=== PATIENT | female | born 1950 | race Hispanic/Latino ===

== ENCOUNTER 2018-12-23 16:06 | Observation (INO) | payer OTHER, MEDICARE ==
[~2018-12-23] VITALS: Ht 144.8 cm; Wt 67.2 kg
[~2018-12-23 16:06] MED LIST: GABAPENTIN400 MG PO; HYDROCORTISONE10 MG PO; LEVOTHYROXINE50 MCG PO; MIRTAZAPINE15 MG PO; PANTOPRAZOLE SO40 MG PO; ULTRAM50 MG PO
--- OUTSIDE RECORDS SUMMARY | 2018-12-23 16:09 | XMS REPORT | Continuity of Care Document ---
Author Author [employer] [facility] Address Unknown Phone Unavailable Problems Problem Status Onset Date Classification Date Reported Comments Source ORDERING DR. ZELDA MARINELLI (#[id number] Active 10/31/2018 [facility] Medications Medication Details Route Status Patient Instructions Ordering Provider Order Date Source Allergies, Adverse Reactions, Alerts Substance Category Reaction Severity Reaction type Status Date Reported Comments Source Immunizations Immunization Date Given Site Status Last Updated Comments Source Results Order Name Results Value Reference Range Date Interpretation Comments Source CHEM PANEL eGFR 91 mL/min/1.73m2 11/07/2018 Result Comment: The eGFR is calculated using the CKD-EPI formula. In most young, healthy individuals the eGFR will be >90 mL/min/1.73m2. The eGFR declines with age. An eGFR of 60-89 may be normal in some populations, particularly the elderly, for whom the CKD-EPI formula has not been extensively validated. Use of the eGFR is not recommended in the following populations: Individuals with unstable creatinine concentrations, including patients and those with serious co-morbid conditions. Patients with extremes in muscle mass or diet. The data above are obtained from the National Kidney Disease Education Program (NKDEP) which additionally recommends that when the eGFR is used in patients with extremes of body mass index for purposes of drug dosing, the eGFR should be multiplied by the estimated BMI. [facility] CHEM PANEL POC Creatinine 0.7 mg/dL 0.5 - 1.4 11/07/2018 [facility] Abdomen/Pelvis w/wo IV contrast CT Abdomen/Pelvis w/wo IV contrast CT CT SCAN OF THE ABDOMEN AND PELVIS WITH CONTRAST. HX: Clinical Indication: - R10.9 Unspecified abdominal pain; . Comparison: None Technique: Helical CT images were obtained from the domes the diaphragms to the symphysis pubis following the administration of p.o. contrast and before and after the administration of intravenous contrast. CT imaging performed at this location utilizes radiation dose optimization techniques which include one or more of the following: -Automated exposure control -Adjustment of the mA and/or kV according to patient size -Use of iterative reconstruction technique CT Radiation Dose DLP 930 mGy-cm ABDOMEN AND PELVIS: Mild lingula and lower lobe parenchyma scarring is present may represent a component of pulmonary fibrosis. The heart is normal in size. No pericardial effusion. Postoperative cholecystectomy. Diffuse fatty liver infiltration. The spleen, most diffusely fatty atrophic pancreas, and adrenals are normal in appearance. The kidneys show good, symmetrical enhancement without hydronephrosis. A 1.3 cm posterior interpolar right hemorrhagic cyst is present. Small about 1.0 cm bilateral renal cysts are present. No definite renal, ureteral calculi or hydronephrosis detected. Abundance of stool within the colon. Small fat- containing umbilical hernia is present. Grossly normal appendix. Mild sigmoid descending diverticulosis. The bladder is nondistended. Postoperative hysterectomy. Atherosclerotic calcification abdominal aorta and iliac arteries. Diffuse osteopenia. Mild lumbar spondylosis and facet arthrosis. IMPRESSION: 1. No acute abdominal or pelvic process detected. 2. A 1.3 cm posterior interpolar right hemorrhagic cyst is present. Small about 1.0 cm bilateral renal cysts are present. No definite obstructive uropathy. 3. Diffuse fatty liver infiltration. 4. Postoperative cholecystectomy and hysterectomy. 5. Mild sigmoid descending diverticulosis. SL: [id number] 11/07/2018 - - Read by: Papa Corral MD Dictated Date/time: 11/07/18 18:17 Electronically Signed by: Papa Corral MD 11/07/18 18:23 FINAL REPORT [facility] Vital Signs Vital Sign Value Date Comments Source Encounters Location Location Details Encounter Type Encounter Number Reason For Visit Attending Provider ADM Date DC Date Status Source [facility] Outpatient [id number] Non Physician 11/07/2018 11/08/2018 [facility] Procedures Procedure Code Date Perfomer Comments Source
--- OUTSIDE RECORDS SUMMARY | 2018-12-23 16:09 | XMS REPORT | Summary of Care ---
Author Author [facility] Organization [facility] Address Unknown Phone Unavailable Encounter [facility] Sweta(FIN) [id number] Date(s): 11/07/18 - 11/07/18 [facility] [address] [place] [address]- Discharge Disposition: Home or Self Care Attending Physician: Physician, Non Associated MD Vital Signs No data available for this section Problem List No data available for this section Allergies, Adverse Reactions, Alerts No data available for this section Medications No data available for this section Results CHEM PANEL Most recent to 1 oldest [Reference Range]: eGFR 91 mL/min/1.73m2 1 *NA* (11/07/18 9:14 AM) POC Creatinine 0.7 mg/dL [0.5-1.4 mg/dL] (11/07/18 9:14 AM) 1Result Comment: The eGFR is calculated using the [...] from the National Kidney Disease Education Program ( NKDEP) which additionally recommends that when the eGFR is used in patients with extremes of body mass index for purposes of drug dosing, the eGFR should be mul tiplied by the estimated BMI. Immunizations No data available for this section Procedures No data available for this section Social History No data available for this section Assessment and Plan No data available for this section
--- OUTSIDE RECORDS SUMMARY | 2018-12-23 16:11 | XMS REPORT ---
[facility] Address Unknown Phone Unavailable Care Team Providers Care [employer] Name Role Phone DILLON ALEXANDRA PP Unavailable LUIGI WONG M.D. Unavailable Unavailable ANNA GIRON M.D. Unavailable Unavailable Danielito GALAVIZ Unavailable Unavailable Payers Payer Name Policy Type Policy Number Effective Date Expiration Date Problems This patient has no known problems. Allergies, Adverse Reactions, Alerts Allergy Name Allergy Type Status Severity Reaction(s) Onset Date Inactive Date Treating Clinician Comments hydrocodone DA Active SV 2018-07-09 00:00:00 aspirin DA Active SV 2018-07-09 00:00:00 acetaminophen DA Active SV 2018-07-09 00:00:00 ibuprofen DA Active SV 2018-07-09 00:00:00 chicken derived DA Active U 2018-07-09 00:00:00 ibuprofen DA Active SV 2018-07-07 00:00:00 chicken derived DA Active U 2018-07-03 00:00:00 SEAFOOD DA Active SV 2018-06-24 00:00:00 hydrocodone DA Active SV 2018-06-24 00:00:00 aspirin DA Active SV 2018-06-24 00:00:00 acetaminophen DA Active SV 2018-06-24 00:00:00 ibuprofen DA Active SV 2018-06-24 00:00:00 ibuprofen DA Active U 2018-01-10 00:00:00 prednisone DA Active U 2018-01-06 00:00:00 aspirin DA Active U 2010-07-31 00:00:00 ibuprofen DA Active U 2010-07-31 00:00:00 SEAFOOD DA Active U 2010-07-31 00:00:00 Medications This patient has no known medications. Encounters Start Date/Time End Date/Time Encounter Type Admission Type Attending [facility] Care Department Encounter ID 2018-06-23 02:02:00 Inpatient [facility] [id number] 2018-06-22 12:47:27 Inpatient [facility] [id number] 2018-06-22 02:00:53 Inpatient [facility] [id number] 2018-06-21 13:54:42 Inpatient [facility] [id number] 2018-06-21 09:38:02 Inpatient [facility] [id number] 2018-06-21 02:08:33 Inpatient [facility] [id number] 2018-06-21 00:00:00 Inpatient [facility] [id number] 2018-06-21 00:00:00 Inpatient [facility] [id number] 2018-06-20 16:27:07 Inpatient [facility] [id number] 2018-06-20 02:03:43 Inpatient [facility] [id number] 2018-06-20 00:00:00 Inpatient [facility] [id number] 2018-06-19 07:33:48 Inpatient [facility] [id number] 2018-06-18 19:13:45 Inpatient [facility] [id number] 2018-06-18 15:48:19 Inpatient [facility] [id number] 2018-06-18 08:37:41 [facility] [id number] 2018-06-10 11:03:47 [facility] [id number] 2018-06-10 07:59:35 [facility] [id number] 2018-06-10 02:02:17 Inpatient [facility] [id number] 2018-06-09 19:46:07 [facility] [id number] 2018-06-09 14:41:10 [facility]patient [facility] [id number] 2018-06-09 08:55:33 [facility]patient [facility] [id number] 2018-06-09 02:41:18 Inpatient [facility] [id number] 2018-06-08 13:37:50 [facility]patient [facility] [id number] 2018-06-07 17:57:51 Inpatient [facility] [id number] 2018-06-07 17:01:19 Inpatient [facility] [id number] 2018-06-07 00:02:10 Inpatient [facility] [id number] 2018-06-07 00:00:00 Inpatient [facility] [id number] 2018-06-06 16:08:32 Inpatient [facility] [id number] 2018-06-06 12:25:45 Inpatient [facility] [id number] 2018-06-06 00:05:32 Inpatient [facility] [id number] 2018-06-05 00:05:08 Inpatient [facility] [id number] 2018-06-04 18:43:58 Inpatient [facility] [id number] 2018-06-04 09:07:00 Inpatient [facility] [id number] 2018-06-04 00:00:00 Inpatient [facility] [id number] 2018-06-03 00:00:00 Inpatient [facility] [id number] 2018-04-16 00:00:00 [facility]patient [facility] [id number] 2018-02-18 00:00:00 [facility] [id number] 2018-02-08 00:00:00 [facility]patient [facility] [id number] 2019-05-09 00:00:00 2019-05-09 00:00:00 Outpatient [facility] [id number] 2019-02-13 00:00:00 2019-02-13 00:00:00 Outpatient [facility] [id number] 2019-02-12 00:00:00 2019-02-12 00:00:00 Outpatient [facility] [id number] 2018-12-25 00:00:00 2018-12-25 00:00:00 Outpatient [facility] [id number] 2018-12-18 00:00:00 2018-12-18 00:00:00 Outpatient [facility] [id number] 2018-12-13 00:00:00 2018-12-13 00:00:00 Outpatient [facility] [id number] 2018-12-13 00:00:00 2018-12-13 00:00:00 Outpatient [facility] [id number] 2018-12-12 14:01:36 2018-12-12 14:01:36 Outpatient [facility] [id number] 2018-11-19 00:00:00 2018-11-19 00:00:00 Outpatient [facility] [id number] 2018-11-13 11:23:33 2018-11-13 11:23:33 Outpatient [facility] [id number] 2018-11-11 00:00:00 2018-11-11 00:00:00 Outpatient [facility] [id number] 2018-11-07 08:50:00 2018-11-07 08:50:00 Outpatient [id number] 2018-10-25 13:49:32 2018-10-25 13:49:32 Outpatient [facility] [id number] 2018-10-17 15:19:35 2018-10-17 15:19:35 Outpatient [facility] [id number] 2018-09-13 11:29:36 2018-09-13 11:29:36 Outpatient [facility] [id number] 2018-09-10 10:54:26 2018-09-10 10:54:26 Outpatient [facility] [id number] 2018-07-23 00:00:00 2018-07-23 00:00:00 Outpatient [facility] [id number] 2018-07-23 00:00:00 2018-07-23 00:00:00 Outpatient [facility] [id number] 2018-07-18 00:00:00 2018-07-18 00:00:00 Outpatient [facility] [id number] 2018-07-18 00:00:00 2018-07-18 00:00:00 Outpatient [facility] [id number] 2018-07-18 00:00:00 2018-07-18 00:00:00 Outpatient [facility] [id number] 2018-07-11 00:00:00 2018-07-11 00:00:00 Outpatient [facility] [id number] 2018-07-10 00:00:00 2018-07-10 00:00:00 Outpatient [facility] [id number] 2018-06-26 00:00:00 2018-06-26 00:00:00 Outpatient [facility] [id number] 2018-06-26 00:00:00 2018-06-26 00:00:00 Outpatient [facility] [id number] 2018-06-18 00:00:00 2018-06-18 00:00:00 Emergency [facility] [id number] 2018-06-17 23:55:03 2018-06-17 23:55:03 Emergency [facility] [id number] 2018-06-17 22:41:34 2018-06-17 22:41:34 Emergency [facility] [id number] 2018-06-17 21:18:29 2018-06-17 21:18:29 Emergency [facility] [id number] 2018-06-17 19:13:01 2018-06-17 19:13:01 Inpatient [facility] [id number] 2018-06-14 00:00:00 2018-06-14 00:00:00 Outpatient [facility] [id number] 2018-06-12 11:24:28 2018-06-12 11:24:28 Outpatient [facility] [id number] 2018-06-12 00:00:00 2018-06-12 00:00:00 Outpatient [facility] [id number] 2018-06-12 00:00:00 2018-06-12 00:00:00 Outpatient [facility] [id number] 2018-06-03 08:32:44 2018-06-03 08:32:44 Outpatient [facility] [id number] 2018-05-23 09:57:46 2018-05-23 09:57:46 Outpatient [facility] [id number] 2018-05-23 00:00:00 2018-05-23 00:00:00 Outpatient [facility] [id number] 2018-05-16 14:39:51 2018-05-16 14:39:51 Outpatient [facility] [id number] 2018-05-06 00:00:00 2018-05-06 00:00:00 Outpatient [facility] [id number] 2018-05-06 00:00:00 2018-05-06 00:00:00 Outpatient [facility] [id number] 2018-05-02 13:09:04 2018-05-02 13:09:04 Outpatient [facility] [id number] 2018-05-02 11:11:14 2018-05-02 11:11:14 Outpatient [facility] [id number] 2018-05-01 00:00:00 2018-05-01 00:00:00 Outpatient [facility] [id number] 2018-04-30 07:54:36 2018-04-30 07:54:36 Outpatient [facility] [id number] 2018-04-30 07:54:33 2018-04-30 07:54:33 Outpatient [facility] [id number] 2018-04-29 13:00:12 2018-04-29 13:00:12 Outpatient [facility] [id number] 2018-04-29 08:19:49 2018-04-29 08:19:49 Outpatient [facility] [id number] 2018-04-29 00:00:00 2018-04-29 00:00:00 Outpatient [facility] [id number] 2018-04-26 14:18:20 2018-04-26 14:18:20 Outpatient [facility] [id number] 2018-04-25 07:50:04 2018-04-25 07:50:04 Outpatient [facility] [id number] 2018-04-24 07:20:05 2018-04-24 07:20:05 Outpatient [facility] [id number] 2018-04-03 16:49:00 2018-04-03 16:49:00 Outpatient [facility] [id number] 2018-04-03 15:45:29 2018-04-03 15:45:29 Outpatient [facility] [id number] 2018-03-29 14:41:44 2018-03-29 14:41:44 Outpatient [facility] [id number] 2018-03-29 08:52:17 2018-03-29 08:52:17 Outpatient [facility] [id number] 2018-03-28 15:37:13 2018-03-28 15:37:13 Outpatient [facility] [id number] 2018-03-28 14:30:13 2018-03-28 14:30:13 Outpatient [facility] [id number] 2018-03-28 00:00:00 2018-03-28 00:00:00 Outpatient [facility] [id number] 2018-03-18 15:50:50 2018-03-18 15:50:50 Outpatient [facility] [id number] 2018-03-11 00:00:00 2018-03-11 00:00:00 Outpatient [facility] [id number] 2018-03-08 13:10:49 2018-03-08 13:10:49 Outpatient [facility] [id number] 2018-03-08 11:21:30 2018-03-08 11:21:30 Outpatient [facility] [id number] 2018-03-08 00:00:00 2018-03-08 00:00:00 Outpatient [facility] [id number] 2018-03-06 13:50:43 2018-03-06 13:50:43 Outpatient [facility] [id number] 2018-02-14 15:33:00 2018-02-14 15:33:00 Outpatient [facility] [id number] 2018-02-08 00:00:00 2018-02-08 00:00:00 Outpatient [facility] [id number] 2018-02-07 08:08:41 2018-02-07 08:08:41 Outpatient [facility] [id number] 2018-02-07 00:00:00 2018-02-07 00:00:00 Outpatient [facility] [id number] 2018-01-30 11:24:28 2018-01-30 11:24:28 Outpatient [facility] [id number] 2018-01-21 09:38:22 2018-01-21 09:38:22 Outpatient [facility] [id number] 2018-01-16 10:34:54 2018-01-16 10:34:54 Outpatient [facility] [id number] 2017-12-20 12:18:36 2017-12-20 12:18:36 Outpatient [facility] [id number] 2017-12-19 12:58:51 2017-12-19 12:58:51 Outpatient [facility] [id number] 2017-12-18 13:00:59 2017-12-18 13:00:59 Outpatient [facility] [id number] 2017-11-29 13:47:03 2017-11-29 13:47:03 Outpatient [facility] [id number] 2017-11-28 15:40:02 2017-11-28 15:40:02 Outpatient [facility] [id number] 2017-11-28 15:16:48 2017-11-28 15:16:48 Outpatient [facility] [id number] 2017-11-26 10:58:33 2017-11-26 10:58:33 Outpatient [facility] [id number] 2017-11-16 12:34:53 2017-11-16 12:34:53 Outpatient [facility] [id number] 2017-11-08 15:32:01 2017-11-08 15:32:01 Outpatient [facility] [id number] 2017-11-02 10:51:34 2017-11-02 10:51:34 Outpatient [facility] [id number] 2017-10-30 12:09:19 2017-10-30 12:09:19 Outpatient [facility] [id number] 2017-10-30 11:41:54 2017-10-30 11:41:54 Outpatient [facility] [id number] 2017-10-30 09:47:21 2017-10-30 09:47:21 Outpatient [facility] [id number] 2017-10-23 11:05:48 2017-10-23 11:05:48 Outpatient [facility] [id number] 2017-10-18 11:02:41 2017-10-18 11:02:41 Outpatient [facility] [id number] 2017-10-18 08:58:31 2017-10-18 08:58:31 Outpatient [facility] [id number] 2017-10-15 11:38:23 2017-10-15 11:38:23 Outpatient [facility] [id number] 2017-10-15 08:30:21 2017-10-15 08:30:21 Outpatient [facility] [id number] 2017-09-20 16:18:51 2017-09-20 16:18:51 Outpatient [facility] [id number] 2017-09-14 12:39:24 2017-09-14 12:39:24 Outpatient [facility] [id number] 2017-09-13 00:00:00 2017-09-13 00:00:00 Outpatient [facility] [id number] 2017-09-12 14:55:30 2017-09-12 14:55:30 Outpatient [facility] [id number] 2017-09-07 11:25:27 2017-09-07 11:25:27 Outpatient [facility] [id number] 2017-09-07 00:00:00 2017-09-07 00:00:00 Outpatient [facility] [id number] 2017-09-04 00:00:00 2017-09-04 00:00:00 Outpatient [facility] [id number] 2017-09-03 08:02:16 2017-09-03 08:02:16 Outpatient [facility] [id number] 2017-08-24 14:27:57 2017-08-24 14:27:57 Outpatient [facility] [id number] 2017-08-15 16:22:10 2017-08-15 16:22:10 Outpatient [facility] [id number] 2017-08-15 14:50:40 2017-08-15 14:50:40 Outpatient [facility] [id number] 2017-08-02 00:00:00 2017-08-02 00:00:00 Outpatient [facility] [id number] 2017-07-23 09:41:20 2017-07-23 09:41:20 Outpatient [facility] [id number] 2017-07-23 07:53:45 2017-07-23 07:53:45 Outpatient [facility] [id number] 2017-07-10 12:17:47 2017-07-10 12:17:47 Outpatient [facility] [id number] 2017-07-03 13:33:36 2017-07-03 13:33:36 Outpatient [facility] [id number] 2017-06-26 00:00:00 2017-06-26 00:00:00 Outpatient [facility] [id number] 2017-06-18 00:00:00 2017-06-18 00:00:00 Outpatient [facility] [id number] 2017-06-12 13:53:44 2017-06-12 13:53:44 Outpatient [facility] [id number] 2017-06-12 00:00:00 2017-06-12 00:00:00 Outpatient [facility] [id number] 2017-06-08 14:06:17 2017-06-08 14:06:17 Outpatient [facility] [id number] 2017-06-08 12:56:41 2017-06-08 12:56:41 Outpatient [facility] [id number] 2017-05-16 15:03:56 2017-05-16 15:03:56 Outpatient [facility] [id number] 2017-05-16 12:00:22 2017-05-16 12:00:22 Outpatient [facility] [id number] 2017-04-04 00:00:00 2017-04-04 00:00:00 Outpatient [facility] [id number] 2017-03-26 00:00:00 2017-03-26 00:00:00 Outpatient [facility] [id number] 2017-03-15 00:00:00 2017-03-15 00:00:00 Outpatient [facility] [id number] 2017-03-01 00:00:00 2017-03-01 00:00:00 Outpatient [facility] [id number] 2017-03-01 00:00:00 2017-03-01 00:00:00 Outpatient [facility] [id number] 2017-02-14 13:52:47 2017-02-14 13:52:47 Outpatient [facility] [id number] 2017-01-31 09:03:10 2017-01-31 09:03:10 Outpatient [facility] [id number] 2017-01-30 14:56:50 2017-01-30 14:56:50 Outpatient [facility] [id number] 2017-01-30 00:00:00 2017-01-30 00:00:00 Outpatient [facility] [id number] 2017-01-23 15:24:40 2017-01-23 15:24:40 Outpatient [facility] [id number] 2017-01-23 15:24:33 2017-01-23 15:24:33 Outpatient [facility] [id number] 2017-01-22 11:32:04 2017-01-22 11:32:04 Outpatient [facility] [id number] 2017-01-22 09:46:27 2017-01-22 09:46:27 Outpatient [facility] [id number] 2017-01-10 07:17:14 2017-01-10 07:17:14 Outpatient [facility] [id number] 2017-01-09 13:20:07 2017-01-09 13:20:07 Outpatient [facility] [id number] Results Test Description Test Time Test Comments Text Results Atomic Results Result Comments - CT CHEST W/O CONTRAST 2018-10-22 13:43:00 Name: LASHON SANON [facility] : 1950 Age/S: 68 / F [address] Unit #: [id number] Loc: Fernando DONNA [address] Phys: Reed Morel MD Acct: [id number] Dis Date: Status: REG CLI PHONE #: [phone] Exam Date: 10/22/2018 1241 FAX #: [phone] Reason: INTERSTITIAL PULMONARY DISEASE EXAMS: CPT CODE: [id number] CT CHEST W/O CONTRAST 46114 HISTORY: Interstitial pulmonary disease. COMPARISON: CT chest from July 12, 2018. CT chest without contrast: Automated exposure control. Subpleural interstitial scarring bilaterally in the upper and lower lobes. Reticular pattern in subpleural location. Thickening of the intra and the interlobular septa. Dependent changes. No infiltrates, effusion or congestion. No bronchiectasis, honeycombing or fibrosis. Calcified granuloma in the medial right base. No endobronchial lesions. No parenchymal mass is noted. Large pleural based calcification noted in the posterior right apex as well and may represent pleural plaque which would n't suggest prior asbestos exposure. No asbestosis. Unremarkable unopacified aorta and pulmonary arteries. The thyroid glands are unremarkable. Esophageal wall is not thickened. No pathologic adenopathy. Cardiac silhouette is normal without pericardial effusion. Visualized upper abdomen demonstrates hyperdense lesion within the posterior medial right kidney in the interpolar region measuring 1.3 cm with average Hounsfield unit measurement of 70 likely hemorrhagic or proteinaceous cyst. The subcutaneous tissues and the musculature are normal in appearance. No lytic or blastic lesions are noted within the bony skeleton. IMPRESSION: Carmina pleural scarring in both upper and the lower lobes bilaterally with thickening of the intra-and interlobular septa. No significant honeycombing, fibrosis or bronchiectasis. These findings may suggest UIP or NSIP. Calcification is pleural-based in the posterior superior right upper lobe may represent pleural plaque and which may suggest asbestos exposure although no evidence for asbestosis. No pathologic adenopathy. at 1343 Reported and signed by: Claude Padilla M.D. PAGE 1 Signed Report (CONTINUED) Name: LASHON SANON [facility] : 1950 Age/S: 68 / F [address] [facility] Unit #: [id number] Loc: [place] [address] Phys: Reed Morel MD Acct: [id number] Dis Date: Status: REG CLI PHONE #: [phone] Exam Date: 10/22/2018 1241 FAX #: [phone] Reason: INTERSTITIAL PULMONARY DISEASE EXAMS: CPT CODE: [id number] CT CHEST W/O CONTRAST 51109 <Continued> CC: Reed Morel MD; Petey Galvan MD Technologist:Lay Floyd RT(R),CT CTDI: DLP: Trnscb Date/Time: 10/22/2018 (1753) t.SDR.TH4 Orig Print D/T: S: 10/22/2018 (2058) CTDI: DLP: PAGE 2 Signed Report XR CHEST 1 VIEW 2017-07-02 11:15:29 XR CHEST 1 VIEWLOCATION: [id number]: chest radiograph 06/29/2017INDICATION: chfDISCUSSION:Median sternotomy wires and cardiac valve prosthesis are present.Fractured spinal hardware is present.Pulmonary edema has decreased.Mild central pulmonary vascular congestion remains.The cardiac silhouette is prominent, but stable.Aortic calcifications are present. Osseous structures are stable.IMPRESSION:Decreased pulmonary edema. Mild central pulmonary vascular congestionremains. POC Glucose, Blood 2017-07-02 07:48:00 POC Glucose (test code=POCGLUC) 100 mg/dL 70-115 If you consider your patient critically ill, the Genoveva Accu-Chek InformII metershould not be used for Glucose determinations.Draw a venous Glucose and send to the Main Lab for Analysis. Prothrombin [id number] 06:13:00* Test Item Value Reference Range Comments PT (test code=PT) 27.40 seconds 9.78-13.35 VERIFIED BY REPEAT TESTINGREAD BACK LAB VALUESPT DELTA CHECKED WITH Gareth BRAN /GORDY @0609 ON 07/02/2017 BY EDPATIENT ON DCTYRONE PER RN INR (test code=INR) 2.42 Ratio 0.6-1.2 [id number] 06:11:00* Test Item Value Reference Range Comments Phosphorus (test code=PO4) 3.8 mg/dL 2.70-4.50 Magnesium, [id number] 06:11:00* Test Item Value Reference Range Comments Magnesium (test code=MG) 2.1 mg/dL 1.7-2.5 Basic Metabolic [id number] 06:11:00* Test Item Value Reference Range Comments Sodium (test code=NA) 138 mmol/L 135-145 Potassium (test code=K) 3.6 mmol/L 3.5-5.1 Chloride (test code=CL) 98 mmol/L 98-105 Carbon Dioxide (test code=CO2) 32 mmol/L 22-29 Glucose (test code=GLU) 93 mg/dL 70-115 Blood Urea Nitrogen (test code=BUN) 15 mg/dL 8-23 Creatinine (test code=CREAT) 1.2 mg/dL 0.5-0.9 Calcium (test code=CA) 8.5 mg/dL 8.3-10.5 BUN/Creatinine Ratio (test code=BCRATIO) 12.5 Anion Gap (test code=AGAP) 8 mmol/L 7-16 Estimated GFR (test code=GFR) 48 mL/min/1.73m2 eGFR (estimated Glomerular Filtration Rate) is an estimated value,calculated from the patient's serum creatinine using the MDRD equation.It is NOT the patient's actual GFR. The eGFR provides a more clinicallyuseful measure of kidney disease than serum creatinine alone.This calculation takes sex and race into account, if the informationis provided. If the race is not provided, and the patient isAfrican-Bangladeshi, multiply by 1.212. If sex is not provided, and thepatient is female, multiply by 0.742. Results for patients <18 years ofage have not been validated by the MDRD study and should be interpretedwith caution.eGFR Result Interpretation:eGFR > or=60 is in the Normal RangeeGFR < 60 may mean kidney diseaseeGFR < 15 may mean kidney failureRanges recommended by the National Kidney Foundat ion,http://nkdep.nih.gov CBC with [id number] 05:06:00* Test Item Value Reference Range Comments WBC (test code=WBC) 6.9 K/cumm 4.4-10.5 RBC (test code=RBC) 3.30 M/cumm 3.75-5.20 Hemoglobin (test code=HGB) 10.3 gm/dL 12.2-14.8 Hematocrit (test code=HCT) 31.2 % 36.5-44.4 MCV (test code=MCV) 94.6 fL 80-100 MCH (test code=MCH) 31.1 pg 27.0-32.5 MCHC (test code=MCHC) 32.8 g/dL 32.0-37.5 RDW (test code=RDW) 14.6 % 11.5-14.5 Platelet Count (test code=PLTCT) 439 K/cumm 140-440 MPV (test code=MPV) 9.7 fL Diff Method (test code=DIFFM) Auto Neutrophil (test code=NEUT) 67.0 % 36-70 Lymphocyte (test code=LYMPH) 25.3 % 12-44 Monocyte (test code=MONO) 5.6 % 0-11 Eosinophil (test code=EOS) 1.3 % 0-7 Basophil (test code=BASO) 0.8 % 0-2 Neutro Abs (test code=ANEUT) 4.6 K/cumm 1.6-7.4 Lymph Abs (test code=ALYMPH) 1.8 K/cumm 0.5-4.6 [place] Abs (test code=AMONO) 0.4 K/cumm 0.0-1.2 Eos Abs (test code=AEOS) 0.09 K/cumm 0.00-0.74 Baso Abs (test code=ABASO) 0.1 K/cumm 0.00-0.21 CT HEAD OR BRAIN WO [id number] 16:07:54EXAM: CT BRAIN WITHOUT CONTRASTINDICATION: Headache on blood thinnersCOMPARISON: June 26, 2017TECHNIQUE: Routine axial noncontrast CT images of the brain wereobtained.IV contrast: None.DLP: 829 mGy-cmFINDINGS: No intra-axial or extra-axial fluid collections are identified. No acutehemorrhage.There is an evolving ischemic infarct in the left cerebellar hemisphere.No hemorrhagic transformation. The ventricles and sulci are normal insize and shape with no midline shift or mass effect. The basal cisternsare patent. The fourth ventricle are normal.Evolving subgaleal hematoma overlying the right parietal bone measuring2.5 x 1.3 cm. The paranasal sinuses and mastoid air cells are clear. Nocalvarial lesions. Skull base is intact. Orbits and globes areunremarkable.IMPRESSION:1. 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 Nohemorrhagic transformation.2. R esolving subgaleal hematoma overlying the right parietal bone.LOCATION: [id number] [id number] 12:07:43EXAM: ABDOMEN ONE VIEWINDICATION: Evaluate for impactionCOMPARISON: None availableTECHNIQUE: AP view of the abdomen.FINDINGS: The bowel gas pattern is normal. Moderate stool noted within the colon.No pneumoperitoneum is identified. No abnormal calcifications.There are postsurgical changes involving the thoracolumbar spine.IMPRESSION: Moderate stool noted within the colon. No bowel dilatation isidentified.LOCATION: R16 [id number] 07:50:00* Test Item Value Reference Range Comments Phosphorus (test code=PO4) 3.9 mg/dL 2.70-4.50 Basic Metabolic [id number] 07:50:00* Test Item Value Reference Range Comments Sodium (test code=NA) 138 mmol/L 135-145 Potassium (test code=K) 4.0 mmol/L 3.5-5.1 Chloride (test code=CL) 97 mmol/L 98-105 Carbon Dioxide (test code=CO2) 31 mmol/L 22-29 Glucose (test code=GLU) 86 mg/dL 70-115 Blood Urea Nitrogen (test code=BUN) 15 mg/dL 8-23 Creatinine (test code=CREAT) 1.1 mg/dL 0.5-0.9 Calcium (test code=CA) 8.5 mg/dL 8.3-10.5 BUN/Creatinine Ratio (test code=BCRATIO) 13.6 Anion Gap (test code=AGAP) 10 mmol/L 7-16 Estimated GFR (test code=GFR) 53 mL/min/1.73m2 eGFR (estimated Glomerular Filtration Rate) is an estimated value,calculated from the patient's serum creatinine using the MDRD equation.It is NOT the patient's actual GFR. The eGFR provides a more clinicallyuseful measure of kidney disease than serum creatinine alone.This calculation takes sex and race into account, if the informationis provided. If the race is not provided, and the patient isAfrican-Bangladeshi, multiply by 1.212. If sex is not provided, and thepatient is female, multiply by 0.742. Results for patients <18 years ofage have not been validated by the MDRD study and should be interpretedwith caution.eGFR Result Interpretation:eGFR > or=60 is in the Normal RangeeGFR < 60 may mean kidney diseaseeGFR < 15 may mean kidney failureRanges recommended by the National Kidney Foundat ion,http://nkdep.nih.gov Magnesium, [id number] 07:50:00* Test Item Value Reference Range Comments Magnesium (test code=MG) 2.1 mg/dL 1.7-2.5 Prothrombin [id number] 06:41:00* Test Item Value Reference Range Comments PT (test code=PT) 21.30 seconds 9.78-13.35 INR (test code=INR) 1.90 Ratio 0.6-1.2 CBC with [id number] 06:34:00* Test Item Value Reference Range Comments WBC (test code=WBC) 6.2 K/cumm 4.4-10.5 RBC (test code=RBC) 3.39 M/cumm 3.75-5.20 Hemoglobin (test code=HGB) 10.7 gm/dL 12.2-14.8 Hematocrit (test code=HCT) 32.2 % 36.5-44.4 MCV (test code=MCV) 95.0 fL 80-100 MCH (test code=MCH) 31.5 pg 27.0-32.5 MCHC (test code=MCHC) 33.2 g/dL 32.0-37.5 RDW (test code=RDW) 14.8 % 11.5-14.5 Platelet Count (test code=PLTCT) 487 K/cumm 140-440 MPV (test code=MPV) 9.9 fL Diff Method (test code=DIFFM) Auto Neutrophil (test code=NEUT) 71.6 % 36-70 Lymphocyte (test code=LYMPH) 21.6 % 12-44 Monocyte (test code=MONO) 5.0 % 0-11 Eosinophil (test code=EOS) 1.2 % 0-7 Basophil (test code=BASO) 0.6 % 0-2 Neutro Abs (test code=ANEUT) 4.4 K/cumm 1.6-7.4 Lymph Abs (test code=ALYMPH) 1.4 K/cumm 0.5-4.6 [place] Abs (test code=AMONO) 0.3 K/cumm 0.0-1.2 Eos Abs (test code=AEOS) 0.08 K/cumm 0.00-0.74 Baso Abs (test code=ABASO) 0.0 K/cumm 0.00-0.21 Basic Metabolic [id number] 07:27:00* Test Item Value Reference Range Comments Sodium (test code=NA) 138 mmol/L 135-145 Potassium (test code=K) 4.1 mmol/L 3.5-5.1 Chloride (test code=CL) 99 mmol/L 98-105 Carbon Dioxide (test code=CO2) 26 mmol/L 22-29 Glucose (test code=GLU) 98 mg/dL 70-115 Blood Urea Nitrogen (test code=BUN) 18 mg/dL 8-23 Creatinine (test code=CREAT) 1.3 mg/dL 0.5-0.9 Calcium (test code=CA) 8.0 mg/dL 8.3-10.5 BUN/Creatinine Ratio (test code=BCRATIO) 13.8 Anion Gap (test code=AGAP) 13 mmol/L 7-16 Estimated GFR (test code=GFR) 44 mL/min/1.73m2 eGFR (estimated Glomerular Filtration Rate) is an estimated value,calculated from the patient's serum creatinine using the MDRD equation.It is NOT the patient's actual GFR. The eGFR provides a more clinicallyuseful measure of kidney disease than serum creatinine alone.This calculation takes sex and race into account, if the informationis provided. If the race is not provided, and the patient isAfrican-Bangladeshi, multiply by 1.212. If sex is not provided, and thepatient is female, multiply by 0.742. Results for patients <18 years ofage have not been validated by the MDRD study and should be interpretedwith caution.eGFR Result Interpretation:eGFR > or=60 is in the Normal RangeeGFR < 60 may mean kidney diseaseeGFR < 15 may mean kidney failureRanges recommended by the National Kidney Foundat ion,http://nkdep.nih.gov Prothrombin [id number] 07:24:00* Test Item Value Reference Range Comments PT (test code=PT) 18.00 seconds 9.78-13.35 INR (test code=INR) 1.59 Ratio 0.6-1.2 XR CHEST 2V, PA/[id number] 12:42:29EXAM: XR CHEST 2 VIEWSDATE: 06/29/2017 9:48 AM INDICATION: CHFCOMPARISON: Chest radiograph June 27, 2017TECHNIQUE: PA and lateral chest radiographsLOCATION: [id number]:Lines, tubes and hardware: Spinal fixation hardware is noted, withapparent fractures of fixation rods at the back. There is an aorticvalve replacement with median sternotomy wires.Lungs and pleura: Left lung opacities have improved, but there arepersistent patchy right midlung and right lung base interstitialpulmonary opacities.Heart and mediastinum: The heart size is normal for technique. Themediastinal contours are normal. Bones: No acute bony abnormality is identified.IMPRESSION: 1. Improving left lung opacities.2. Slight improvement in right lung interstitial and airspaceopacities, which may represent edema or pneumonia.Magnesium, Serum 2017-06-29 06:47:00* Test Item Value Reference Range Comments Magnesium (test code=MG) 1.9 mg/dL 1.7-2.5 Basic Metabolic [id number] 06:47:00* Test Item Value Reference Range Comments Sodium (test code=NA) 134 mmol/L 135-145 Potassium (test code=K) 2.8 mmol/L 3.5-5.1 fortino rblv Chloride (test code=CL) 95 mmol/L 98-105 Carbon Dioxide (test code=CO2) 30 mmol/L 22-29 Glucose (test code=GLU) 108 mg/dL 70-115 Blood Urea Nitrogen (test code=BUN) 14 mg/dL 8-23 Creatinine (test code=CREAT) 1.1 mg/dL 0.5-0.9 Calcium (test code=CA) 7.7 mg/dL 8.3-10.5 BUN/Creatinine Ratio (test code=BCRATIO) 12.7 Anion Gap (test code=AGAP) 9 mmol/L 7-16 Estimated GFR (test code=GFR) 53 mL/min/1.73m2 eGFR (estimated Glomerular Filtration Rate) is an estimated value,calculated from the patient's serum creatinine using the MDRD equation.It is NOT the patient's actual GFR. The eGFR provides a more clinicallyuseful measure of kidney disease than serum creatinine alone.This calculation takes sex and race into account, if the informationis provided. If the race is not provided, and the patient isAfrican-Bangladeshi, multiply by 1.212. If sex is not provided, and thepatient is female, multiply by 0.742. Results for patients <18 years ofage have not been validated by the MDRD study and should be interpretedwith caution.eGFR Result Interpretation:eGFR > or=60 is in the Normal RangeeGFR < 60 may mean kidney diseaseeGFR < 15 may mean kidney failureRanges recommended by the National Kidney Foundat ion,http://nkdep.nih.gov Prothrombin [id number] 06:19:00* Test Item Value Reference Range Comments PT (test code=PT) 17.40 seconds 9.78-13.35 INR (test code=INR) 1.55 Ratio 0.6-1.2 [id number] 10:17:00* Test Item Value Reference Range Comments Digoxin (test code=DIG) 2.4 ng/mL 0.90-2.00 Prothrombin [id number] 06:22:00* Test Item Value Reference Range Comments PT (test code=PT) 17.10 seconds 9.78-13.35 INR (test code=INR) 1.51 Ratio 0.6-1.2 XR CHEST 1 [id number] 12:13:03EXAM: CHEST ONE VIEWINDICATION: Congestive heart failureCOMPARISON: June 26, 2017TECHNIQUE: AP view of the chest.FINDINGS: The cardiomediastinal silhouette is enlarged. There is evidence of priorthoracic surgery. There are interstitial and airspace opacitiesthroughout both lungs consistent with diffuse pulmonary edema. Nopneumothorax or pleural effusion is identified. The osseous structuresare unremarkable.IMPRESSION: Cardiomegaly with diffuse pulmonary edema.LOCATION: R16 Basic Metabolic [id number] 07:55:00* Test Item Value Reference Range Comments Sodium (test code=NA) 133 mmol/L 135-145 Potassium (test code=K) 4.2 mmol/L 3.5-5.1 Chloride (test code=CL) 97 mmol/L 98-105 Carbon Dioxide (test code=CO2) 26 mmol/L 22-29 Glucose (test code=GLU) 87 mg/dL 70-115 Blood Urea Nitrogen (test code=BUN) 21 mg/dL 8-23 Creatinine (test code=CREAT) 1.0 mg/dL 0.5-0.9 Calcium (test code=CA) 7.6 mg/dL 8.3-10.5 BUN/Creatinine Ratio (test code=BCRATIO) 21.0 Anion Gap (test code=AGAP) 10 mmol/L 7-16 Estimated GFR (test code=GFR) 59 mL/min/1.73m2 eGFR (estimated Glomerular Filtration Rate) is an estimated value,calculated from the patient's serum creatinine using the MDRD equation.It is NOT the patient's actual GFR. The eGFR provides a more clinicallyuseful measure of kidney disease than serum creatinine alone.This calculation takes sex and race into account, if the informationis provided. If the race is not provided, and the patient isAfrican-Bangladeshi, multiply by 1.212. If sex is not provided, and thepatient is female, multiply by 0.742. Results for patients <18 years ofage have not been validated by the MDRD study and should be interpretedwith caution.eGFR Result Interpretation:eGFR > or=60 is in the Normal RangeeGFR < 60 may mean kidney diseaseeGFR < 15 may mean kidney failureRanges recommended by the National Kidney Foundat ion,http://nkdep.nih.gov CBC with [id number] 07:06:00* Test Item Value Reference Range Comments WBC (test code=WBC) 8.3 K/cumm 4.4-10.5 RBC (test code=RBC) 3.20 M/cumm 3.75-5.20 Hemoglobin (test code=HGB) 10.0 gm/dL 12.2-14.8 Hematocrit (test code=HCT) 30.5 % 36.5-44.4 MCV (test code=MCV) 95.4 fL 80-100 MCH (test code=MCH) 31.1 pg 27.0-32.5 MCHC (test code=MCHC) 32.6 g/dL 32.0-37.5 RDW (test code=RDW) 15.2 % 11.5-14.5 Platelet Count (test code=PLTCT) 435 K/cumm 140-440 MPV (test code=MPV) 10.2 fL Diff Method (test code=DIFFM) Auto Neutrophil (test code=NEUT) 82.4 % 36-70 Lymphocyte (test code=LYMPH) 11.7 % 12-44 Monocyte (test code=MONO) 4.4 % 0-11 Eosinophil (test code=EOS) 0.7 % 0-7 Basophil (test code=BASO) 0.6 % 0-2 Neutro Abs (test code=ANEUT) 6.9 K/cumm 1.6-7.4 Lymph Abs (test code=ALYMPH) 1.0 K/cumm 0.5-4.6 [place] Abs (test code=AMONO) 0.4 K/cumm 0.0-1.2 Eos Abs (test code=AEOS) 0.06 K/cumm 0.00-0.74 Baso Abs (test code=ABASO) 0.1 K/cumm 0.00-0.21 Prothrombin [id number] 06:48:00* Test Item Value Reference Range Comments PT (test code=PT) 18.60 seconds 9.78-13.35 INR (test code=INR) 1.65 Ratio 0.6-1.2 Prothrombin [id number] 18:20:00* Test Item Value Reference Range Comments PT (test code=PT) 18.40 seconds 9.78-13.35 INR (test code=INR) 1.64 Ratio 0.6-1.2 POC Glucose, [id number] 17:40:00* Test Item Value Reference Range Comments POC Glucose (test code=POCGLUC) 121 mg/dL 70-115 If you consider your patient critically ill, the Gen[facility] Accu-Chek InformII metershould not be used for Glucose determinations.Draw a venous Glucose and send to the Main Lab for Analysis. [id number] 13:34:00* Test Item Value Reference Range Comments Digoxin (test code=DIG) 2.1 ng/mL 0.90-2.00 VERIFIED BY REPEAT TESTING READ BACK LAB VALUES Fredy MCKNIGHT 1333 06/26/[address] HEAD OR BRAIN WO [id number] 12:26:13EXAM: CT BRAIN WITHOUT CONTRASTDATE: 06/26/2017 12:24 PMINDICATION: HeadacheCOMPARISON: CT brain May 22, 2017TECHNIQUE: Routine axial CT images of the brain were obtained. IV contrast: None.DLP: 827 mGy-cmLOCATION: [id number]: There is hypodensity in the left cerebellum in the region of thepreviously seen hemorrhagic infarct. There is no mass effect or edema.Yousif-white differentiation is preserved elsewhere in the brain.The cortical sulci and lateral ventricles are normal in size. There isno recent deposition of hemorrhagic products. The basal cisterns arepatent. The mastoid air cells and paranasal sinuses are patent. Theorbits are normal.There is an unchanged soft tissue density lesion in the right pariet alscalp region.IMPRESSION: 1. No acute intracranial abnormality2. 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 Unchanged right parietal s calp soft tissue lesion, thought torepresent sebaceous cystXR CHEST 1 VIEW 2017-06-26 12:01:21EXAM: Portable AP chest x-rayLOCATION: R16 INDICATION: DyspneaCOMPARISON: 05/22/2017FINDINGS:The cardiac silhouette is stable and enlarged. Post sternotomy changesand a prosthetic cardiac valve are noted.Bilateral interstitial and airspace opacities, most evident in the rightupper and mid lung field. There is no large pleural effusion ordiscernible pneumothorax.IMPRESSION:Findings most compatible with congestive heart failure. Superimposedpneumonia in the right upper midlung field cannot be excluded.CBC with [id number] 11:56:00* Test Item Value Reference Range Comments WBC (test code=WBC) 11.6 K/cumm 4.4-10.5 RBC (test code=RBC) 3.21 M/cumm 3.75-5.20 Hemoglobin (test code=HGB) 10.2 gm/dL 12.2-14.8 Hematocrit (test code=HCT) 29.6 % 36.5-44.4 MCV (test code=MCV) 92.1 fL 80-100 MCH (test code=MCH) 31.8 pg 27.0-32.5 MCHC (test code=MCHC) 34.5 g/dL 32.0-37.5 RDW (test code=RDW) 15.2 % 11.5-14.5 Platelet Count (test code=PLTCT) 433 K/cumm 140-440 MPV (test code=MPV) 10.6 fL Diff Method (test code=DIFFM) Manual Neutrophil (test code=NEUT) 88.7 % 36-70 Lymphocyte (test code=LYMPH) 6.4 % 12-44 Monocyte (test code=MONO) 4.1 % 0-11 Eosinophil (test code=EOS) 0.4 % 0-7 Basophil (test code=BASO) 0.4 % 0-2 Neutro Abs (test code=ANEUT) 10.3 K/cumm 1.6-7.4 Lymph Abs (test code=ALYMPH) 0.8 K/cumm 0.5-4.6 [place] Abs (test code=AMONO) 0.5 K/cumm 0.0-1.2 Eos Abs (test code=AEOS) 0.04 K/cumm 0.00-0.74 Baso Abs (test code=ABASO) 0.0 K/cumm 0.00-0.21 RBC Morphology (test code=RBCMRPH) Moderate Hypochromia WBC Morphology (test code=WBCMRPH) Moderate Toxic Granulation Platelet Est (test code=PLTEST) Normal Platelet on Smear CK [id number] 11:50:00* Test Item Value Reference Range Comments CK (test code=CK) 32 U/L 26-192 Troponin [id number] 11:50:00* Test Item Value Reference Range Comments Troponin T (test code=ARIANA) <0.010 ng/mL 0.000-0.090 Comprehensive Metabolic [id number] 11:50:00* Test Item Value Reference Range Comments Sodium (test code=NA) 129 mmol/L 135-145 Potassium (test code=K) 4.6 mmol/L 3.5-5.1 Chloride (test code=CL) 97 mmol/L 98-105 Carbon Dioxide (test code=CO2) 23 mmol/L 22-29 Glucose (test code=GLU) 123 mg/dL 70-115 Blood Urea Nitrogen (test code=BUN) 26 mg/dL 8-23 Creatinine (test code=CREAT) 0.9 mg/dL 0.5-0.9 Calcium (test code=CA) 7.8 mg/dL 8.3-10.5 Prot Total (test code=TP) 5.1 g/dL 6.4-8.3 Albumin (test code=ALB) 2.6 g/dL 3.5-5.2 A/G Ratio (test code=AGRATIO) 1.0 Ratio Globulin (test code=GLOB) 2.5 2.9-3.1 Bili Total (test code=TBIL) 0.3 mg/dL 0.1-0.9 Alk Phos (test code=APHOS) 114 U/L 35-104 AST (test code=AST) 19 U/L 1-32 ALT (test code=ALT) 12 U/L 1-33 BUN/Creatinine Ratio (test code=BCRATIO) 28.9 Anion Gap (test code=AGAP) 9 mmol/L 7-16 Estimated GFR (test code=GFR) >60 mL/min/1.73m2 eGFR (estimated Glomerular Filtration Rate) is an estimated value,calculated from the patient's serum creatinine using the MDRD equation.It is NOT the patient's actual GFR. The eGFR provides a more clinicallyuseful measure of kidney disease than serum creatinine alone.This calculation takes sex and race into account, if the informationis provided. If the race is not provided, and the patient isAfrican-Bangladeshi, multiply by 1.212. If sex is not provided, and thepatient is female, multiply by 0.742. Results for patients <18 years ofage have not been validated by the MDRD study and should be interpretedwith caution.eGFR Result Interpretation:eGFR > or=60 is in the Normal RangeeGFR < 60 may mean kidney diseaseeGFR < 15 may mean kidney failureRanges recommended by the National Kidney Foundat ion,http://nkdep.nih.gov Rko-[id number] 11:46:00* Test Item Value Reference Range Comments NT ProBnp (test code=PBNP) 6156 pg/mL 0-124 Prothrombin [id number] 07:49:00* Test Item Value Reference Range Comments PT (test code=PT) 27.10 seconds 9.78-13.35 READ BACK LAB VALUESVERIFIED BY REPEAT TESTINGrechecked & called to rosa,rn @ 7824, no info given/clair INR (test code=INR) 2.42 Ratio 0.6-1.2 READ BACK LAB VALUESVERIFIED BY REPEAT TESTINGrechecked & called to rosa,rn @ 0749, no info given/clair Prothrombin [id number] 05:48:00* Test Item Value Reference Range Comments PT (test code=PT) 45.40 seconds 9.78-13.35 INR (test code=INR) 4.04 Ratio 0.6-1.2 Prothrombin [id number] 05:33:00* Test Item Value Reference Range Comments PT (test code=PT) 40.60 seconds 9.78-13.35 INR (test code=INR) 3.64 Ratio 0.6-1.2 Prothrombin [id number] 06:45:00* Test Item Value Reference Range Comments PT (test code=PT) 32.90 seconds 9.78-13.35 INR (test code=INR) 2.92 Ratio 0.6-1.2 Prothrombin [id number] 06:03:00* Test Item Value Reference Range Comments PT (test code=PT) 27.50 seconds 9.78-13.35 INR (test code=INR) 2.46 Ratio 0.6-1.2 Prothrombin [id number] 06:47:00* Test Item Value Reference Range Comments PT (test code=PT) 26.40 seconds 9.78-13.35 INR (test code=INR) 2.36 Ratio 0.6-1.2 XR ABDOMEN KUB [id number] 14:04:41EXAM: ABDOMEN ONE VIEWINDICATION: Abdominal painCOMPARISON: 05/21/2017TECHNIQUE: AP view of the abdomen.FINDINGS: The bowel gas pattern is normal. Moderate stool noted within thedescending colon and rectum. No pneumoperitoneum is identified. No abnormal calcifications. Surgical hardware noted in the thoracolumbarspine.The osseous structures are unremarkable.IMPRESSION: No acute abnormality in the abdomen. Stool noted within the descendingcolon and rectum.LOCATION: V14Mozltpb, [id number] 09:46:00 Specimen: UrineCollected: 05/29/2017 23:00 Status: Final Last Updated: 05/07 09:46 Culture Result (Final) (Final) 05/31/17 No growth 24 ho urs 10/27/17 No growth 48 hours Prothrombin [id number] 07:23:00* Test Item Value Reference Range Comments PT (test code=PT) 30.80 seconds 9.78-13.35 INR (test code=INR) 2.73 Ratio 0.6-1.2 Prothrombin [id number] 05:05:00* Test Item Value Reference Range Comments PT (test code=PT) 34.20 seconds 9.78-13.35 INR (test code=INR) 3.06 Ratio 0.6-1.2 Prothrombin [id number] 07:50:00* Test Item Value Reference Range Comments PT (test code=PT) 33.80 seconds 9.78-13.35 INR (test code=INR) 3.00 Ratio 0.6-1.2 Basic Metabolic [id number] 07:39:00* Test Item Value Reference Range Comments Sodium (test code=NA) 133 mmol/L 135-145 Potassium (test code=K) 3.4 mmol/L 3.5-5.1 Chloride (test code=CL) 95 mmol/L 98-105 Carbon Dioxide (test code=CO2) 29 mmol/L 22-29 Glucose (test code=GLU) 95 mg/dL 70-115 Blood Urea Nitrogen (test code=BUN) 33 mg/dL 8-23 Creatinine (test code=CREAT) 0.8 mg/dL 0.5-0.9 Calcium (test code=CA) 8.3 mg/dL 8.3-10.5 BUN/Creatinine Ratio (test code=BCRATIO) 41.3 Anion Gap (test code=AGAP) 9 mmol/L 7-16 Estimated GFR (test code=GFR) >60 mL/min/1.73m2 eGFR (estimated Glomerular Filtration Rate) is an estimated value,calculated from the patient's serum creatinine using the MDRD equation.It is NOT the patient's actual GFR. The eGFR provides a more clinicallyuseful measure of kidney disease than serum creatinine alone.This calculation takes sex and race into account, if the informationis provided. If the race is not provided, and the patient isAfrican-Bangladeshi, multiply by 1.212. If sex is not provided, and thepatient is female, multiply by 0.742. Results for patients <18 years ofage have not been validated by the MDRD study and should be interpretedwith caution.eGFR Result Interpretation:eGFR > or=60 is in the Normal RangeeGFR < 60 may mean kidney diseaseeGFR < 15 may mean kidney failureRanges recommended by the National Kidney Foundat ion,http://nkdep.nih.gov CBC with [id number] 07:28:00* Test Item Value Reference Range Comments WBC (test code=WBC) 8.5 K/cumm 4.4-10.5 RBC (test code=RBC) 4.05 M/cumm 3.75-5.20 Hemoglobin (test code=HGB) 12.9 gm/dL 12.2-14.8 Hematocrit (test code=HCT) 37.9 % 36.5-44.4 MCV (test code=MCV) 93.6 fL 80-100 MCH (test code=MCH) 32.0 pg 27.0-32.5 MCHC (test code=MCHC) 34.2 g/dL 32.0-37.5 RDW (test code=RDW) 14.1 % 11.5-14.5 Platelet Count (test code=PLTCT) 235 K/cumm 140-440 MPV (test code=MPV) 8.0 fL Diff Method (test code=DIFFM) Auto Neutrophil (test code=NEUT) 82.3 % 36-70 Lymphocyte (test code=LYMPH) 10.4 % 12-44 Monocyte (test code=MONO) 6.6 % 0-11 Eosinophil (test code=EOS) 0.6 % 0-7 Basophil (test code=BASO) 0.1 % 0-2 Neutro Abs (test code=ANEUT) 7.0 K/cumm 1.6-7.4 Lymph Abs (test code=ALYMPH) 0.9 K/cumm 0.5-4.6 [place] Abs (test code=AMONO) 0.6 K/cumm 0.0-1.2 Eos Abs (test code=AEOS) 0.05 K/cumm 0.00-0.74 Baso Abs (test code=ABASO) 0.0 K/cumm 0.00-0.21 Urinalysis [id number] 23:55:00* Test Item Value Reference Range Comments Color (test code=COLOR) Yellow Yellow,Straw,Pl yellow Clarity (test code=CLAR) Cloudy Clear Specific [place] (test code=SPGR) 1.018 1.001-1.035 pH (test code=PH) 7.0 5.0-9.0 Ketone (test code=KET) Negative mg/dL Negative Glucose (test code=GLUCUR) Negative mg/dL Negative Protein (test code=PROT) Negative mg/dL Negative Bilirubin (test code=BILI) Negative mg/dL Negative Occult Blood (test code=UDOB) Small Negative Urobilinogen (test code=UROB) 0.2 mg/dL 0.2-1.0 Nitrite (test code=NIT) Negative Negative Leuk Esterase (test code=LEUK) Negative Negative Micros Exam (test code=MEXAM) Indicated Epithelial Cells (test code=EPI) None /LPF 0-30 WBC, Urine (test code=UWBC) None seen /HPF 0-5 RBC, Urine (test code=URBC) None Seen /HPF 0-5 Amorph Deposit (test code=AMORD) Mod /HPF Bacteria (test code=BACT) Few /HPF [id number] 05:25:00* Test Item Value Reference Range Comments Phosphorus (test code=PO4) 3.8 mg/dL 2.70-4.50 Basic Metabolic [id number] 05:25:00* Test Item Value Reference Range Comments Sodium (test code=NA) 135 mmol/L 135-145 Potassium (test code=K) 3.5 mmol/L 3.5-5.1 Chloride (test code=CL) 94 mmol/L 98-105 Carbon Dioxide (test code=CO2) 27 mmol/L 22-29 Glucose (test code=GLU) 119 mg/dL 70-115 Blood Urea Nitrogen (test code=BUN) 28 mg/dL 8-23 Creatinine (test code=CREAT) 0.8 mg/dL 0.5-0.9 Calcium (test code=CA) 8.4 mg/dL 8.3-10.5 BUN/Creatinine Ratio (test code=BCRATIO) 35.0 Anion Gap (test code=AGAP) 14 mmol/L 7-16 Estimated GFR (test code=GFR) >60 mL/min/1.73m2 eGFR (estimated Glomerular Filtration Rate) is an estimated value,calculated from the patient's serum creatinine using the MDRD equation.It is NOT the patient's actual GFR. The eGFR provides a more clinicallyuseful measure of kidney disease than serum creatinine alone.This calculation takes sex and race into account, if the informationis provided. If the race is not provided, and the patient isAfrican-Bangladeshi, multiply by 1.212. If sex is not provided, and thepatient is female, multiply by 0.742. Results for patients <18 years ofage have not been validated by the MDRD study and should be interpretedwith caution.eGFR Result Interpretation:eGFR > or=60 is in the Normal RangeeGFR < 60 may mean kidney diseaseeGFR < 15 may mean kidney failureRanges recommended by the National Kidney Foundat ion,http://nkdep.nih.gov Prothrombin [id number] 05:17:00* Test Item Value Reference Range Comments PT (test code=PT) 32.00 seconds 9.78-13.35 INR (test code=INR) 2.86 Ratio 0.6-1.2 CBC with [id number] 05:14:00* Test Item Value Reference Range Comments WBC (test code=WBC) 9.0 K/cumm 4.4-10.5 RBC (test code=RBC) 4.34 M/cumm 3.75-5.20 Hemoglobin (test code=HGB) 13.9 gm/dL 12.2-14.8 Hematocrit (test code=HCT) 40.5 % 36.5-44.4 MCV (test code=MCV) 93.2 fL 80-100 MCH (test code=MCH) 31.9 pg 27.0-32.5 MCHC (test code=MCHC) 34.2 g/dL 32.0-37.5 RDW (test code=RDW) 13.9 % 11.5-14.5 Platelet Count (test code=PLTCT) 255 K/cumm 140-440 MPV (test code=MPV) 8.3 fL Diff Method (test code=DIFFM) Auto Neutrophil (test code=NEUT) 89.0 % 36-70 Lymphocyte (test code=LYMPH) 6.5 % 12-44 Monocyte (test code=MONO) 4.3 % 0-11 Eosinophil (test code=EOS) 0.1 % 0-7 Basophil (test code=BASO) 0.1 % 0-2 Neutro Abs (test code=ANEUT) 8.0 K/cumm 1.6-7.4 Lymph Abs (test code=ALYMPH) 0.6 K/cumm 0.5-4.6 [place] Abs (test code=AMONO) 0.4 K/cumm 0.0-1.2 Eos Abs (test code=AEOS) 0.01 K/cumm 0.00-0.74 Baso Abs (test code=ABASO) 0.0 K/cumm 0.00-0.21 Basic Metabolic [id number] 04:25:00* Test Item Value Reference Range Comments Sodium (test code=NA) 133 mmol/L 135-145 Potassium (test code=K) 3.8 mmol/L 3.5-5.1 Chloride (test code=CL) 98 mmol/L 98-105 Carbon Dioxide (test code=CO2) 28 mmol/L 22-29 Glucose (test code=GLU) 118 mg/dL 70-115 Blood Urea Nitrogen (test code=BUN) 22 mg/dL 8-23 Creatinine (test code=CREAT) 0.8 mg/dL 0.5-0.9 Calcium (test code=CA) 8.3 mg/dL 8.3-10.5 BUN/Creatinine Ratio (test code=BCRATIO) 27.5 Anion Gap (test code=AGAP) 7 mmol/L 7-16 Estimated GFR (test code=GFR) >60 mL/min/1.73m2 eGFR (estimated Glomerular Filtration Rate) is an estimated value,calculated from the patient's serum creatinine using the MDRD equation.It is NOT the patient's actual GFR. The eGFR provides a more clinicallyuseful measure of kidney disease than serum creatinine alone.This calculation takes sex and race into account, if the informationis provided. If the race is not provided, and the patient isAfrican-Bangladeshi, multiply by 1.212. If sex is not provided, and thepatient is female, multiply by 0.742. Results for patients <18 years ofage have not been validated by the MDRD study and should be interpretedwith caution.eGFR Result Interpretation:eGFR > or=60 is in the Normal RangeeGFR < 60 may mean kidney diseaseeGFR < 15 may mean kidney failureRanges recommended by the National Kidney Foundat ion,http://nkdep.nih.gov [id number] 04:25:00* Test Item Value Reference Range Comments Phosphorus (test code=PO4) 3.1 mg/dL 2.70-4.50 Prothrombin [id number] 04:06:00* Test Item Value Reference Range Comments PT (test code=PT) 33.10 seconds 9.78-13.35 INR (test code=INR) 2.93 Ratio 0.6-1.2 CBC with [id number] 03:57:00* Test Item Value Reference Range Comments WBC (test code=WBC) 9.0 K/cumm 4.4-10.5 RBC (test code=RBC) 3.96 M/cumm 3.75-5.20 Hemoglobin (test code=HGB) 12.5 gm/dL 12.2-14.8 Hematocrit (test code=HCT) 38.2 % 36.5-44.4 MCV (test code=MCV) 96.4 fL 80-100 MCH (test code=MCH) 31.5 pg 27.0-32.5 MCHC (test code=MCHC) 32.7 g/dL 32.0-37.5 RDW (test code=RDW) 14.4 % 11.5-14.5 Platelet Count (test code=PLTCT) 252 K/cumm 140-440 MPV (test code=MPV) 7.8 fL Diff Method (test code=DIFFM) Auto Neutrophil (test code=NEUT) 85.8 % 36-70 Lymphocyte (test code=LYMPH) 5.7 % 12-44 Monocyte (test code=MONO) 7.7 % 0-11 Eosinophil (test code=EOS) 0.7 % 0-7 Basophil (test code=BASO) 0.1 % 0-2 Neutro Abs (test code=ANEUT) 7.7 K/cumm 1.6-7.4 Lymph Abs (test code=ALYMPH) 0.5 K/cumm 0.5-4.6 [place] Abs (test code=AMONO) 0.7 K/cumm 0.0-1.2 Eos Abs (test code=AEOS) 0.06 K/cumm 0.00-0.74 Baso Abs (test code=ABASO) 0.0 K/cumm 0.00-0.21 CT HEAD OR BRAIN WO [id number] 07:02:56EXAM: CT BRAIN WITHOUT CONTRASTINDICATION: Stroke with hemorrhagic conversionCOMPARISON: CT head dated May 22, 2017TECHNIQUE: Routine axial CT images of the brain were obtained.IV contrast: None.DLP: 872.54 mGy-cmFINDINGS: There is an area of ischemia involving the left cerebellar hemispherewith hemorrhagic transformation. The degree of hemorrhage is unchangedto slightly resolved compared to the prior examination. There is minimalsurrounding vasogenic edema. There is improving mass effect on theadjacent brain parenchyma and fourth ventricle. No trans foraminal ortranstentorial herniation is identified.There are areas of low atten uation within the supratentorial whitematter consistent with chronic microvascul ar ischemic changes.. Theventricles and sulci are normal in size and shape with no midline shiftor mass effect. The basal cisterns are patent. The posterior fos sa andfourth ventricle are normal.The paranasal sinuses and mastoid air cells ar e clear. There is a softtissue lesion overlying the right parietal bone measurin g 3.2 x 1.3 cm.This is similar to the prior examination. No calvarial lesions. S kullbase is intact. Orbits and globes are unremarkable.IMPRESSION:1. Expected e volution of the intraparenchymal hemorrhage within theleft cerebellar hemisphere with improving edema and mass effect. Noevidence of herniation.2. Chronic micr ovascular ischemic changes.LOCATION: [id number] 02:49:00* Test Item Value Reference Range Comments Phosphorus (test code=PO4) 2.2 mg/dL 2.70-4.50 Basic Metabolic [id number] 02:49:00* Test Item Value Reference Range Comments Sodium (test code=NA) 137 mmol/L 135-145 Potassium (test code=K) 3.9 mmol/L 3.5-5.1 Chloride (test code=CL) 105 mmol/L 98-105 Carbon Dioxide (test code=CO2) 24 mmol/L 22-29 Glucose (test code=GLU) 126 mg/dL 70-115 Blood Urea Nitrogen (test code=BUN) 17 mg/dL 8-23 Creatinine (test code=CREAT) 0.6 mg/dL 0.5-0.9 Calcium (test code=CA) 8.1 mg/dL 8.3-10.5 BUN/Creatinine Ratio (test code=BCRATIO) 28.3 Anion Gap (test code=AGAP) 8 mmol/L 7-16 Estimated GFR (test code=GFR) >60 mL/min/1.73m2 eGFR (estimated Glomerular Filtration Rate) is an estimated value,calculated from the patient's serum creatinine using the MDRD equation.It is NOT the patient's actual GFR. The eGFR provides a more clinicallyuseful measure of kidney disease than serum creatinine alone.This calculation takes sex and race into account, if the informationis provided. If the race is not provided, and the patient isAfrican-Bangladeshi, multiply by 1.212. If sex is not provided, and thepatient is female, multiply by 0.742. Results for patients <18 years ofage have not been validated by the MDRD study and should be interpretedwith caution.eGFR Result Interpretation:eGFR > or=60 is in the Normal RangeeGFR < 60 may mean kidney diseaseeGFR < 15 may mean kidney failureRanges recommended by the National Kidney Foundat ion,http://nkdep.nih.gov Prothrombin [id number] 02:39:00* Test Item Value Reference Range Comments PT (test code=PT) 26.60 seconds 9.78-13.35 INR (test code=INR) 2.37 Ratio 0.6-1.2 CBC with [id number] 02:31:00* Test Item Value Reference Range Comments WBC (test code=WBC) 8.3 K/cumm 4.4-10.5 RBC (test code=RBC) 3.70 M/cumm 3.75-5.20 Hemoglobin (test code=HGB) 11.9 gm/dL 12.2-14.8 Hematocrit (test code=HCT) 35.2 % 36.5-44.4 MCV (test code=MCV) 95.2 fL 80-100 MCH (test code=MCH) 32.3 pg 27.0-32.5 MCHC (test code=MCHC) 33.9 g/dL 32.0-37.5 RDW (test code=RDW) 14.0 % 11.5-14.5 Platelet Count (test code=PLTCT) 247 K/cumm 140-440 MPV (test code=MPV) 8.0 fL Diff Method (test code=DIFFM) Auto Neutrophil (test code=NEUT) 89.9 % 36-70 Lymphocyte (test code=LYMPH) 5.0 % 12-44 Monocyte (test code=MONO) 4.8 % 0-11 Eosinophil (test code=EOS) 0.2 % 0-7 Basophil (test code=BASO) 0.0 % 0-2 Neutro Abs (test code=ANEUT) 7.4 K/cumm 1.6-7.4 Lymph Abs (test code=ALYMPH) 0.4 K/cumm 0.5-4.6 [place] Abs (test code=AMONO) 0.4 K/cumm 0.0-1.2 Eos Abs (test code=AEOS) 0.02 K/cumm 0.00-0.74 Baso Abs (test code=ABASO) 0.0 K/cumm 0.00-0.21 Basic Metabolic [id number] 06:42:00* Test Item Value Reference Range Comments Sodium (test code=NA) 139 mmol/L 135-145 Potassium (test code=K) 3.9 mmol/L 3.5-5.1 Chloride (test code=CL) 107 mmol/L 98-105 Carbon Dioxide (test code=CO2) 20 mmol/L 22-29 Glucose (test code=GLU) 126 mg/dL 70-115 Blood Urea Nitrogen (test code=BUN) 15 mg/dL 8-23 Creatinine (test code=CREAT) 0.6 mg/dL 0.5-0.9 Calcium (test code=CA) 7.6 mg/dL 8.3-10.5 BUN/Creatinine Ratio (test code=BCRATIO) 25.0 Anion Gap (test code=AGAP) 12 mmol/L 7-16 Estimated GFR (test code=GFR) >60 mL/min/1.73m2 eGFR (estimated Glomerular Filtration Rate) is an estimated value,calculated from the patient's serum creatinine using the MDRD equation.It is NOT the patient's actual GFR. The eGFR provides a more clinicallyuseful measure of kidney disease than serum creatinine alone.This calculation takes sex and race into account, if the informationis provided. If the race is not provided, and the patient isAfrican-Bangl[place]hi, multiply by 1.212. If sex is not provided, and thepatient is female, multiply by 0.742. Results for patients <18 years ofage have not been validated by the MDRD study and should be interpretedwith caution.eGFR Result Interpretation:eGFR > or=60 is in the Normal RangeeGFR < 60 may mean kidney diseaseeGFR < 15 may mean kidney failureRanges recommended by the National Kidney Foundat ion,http://nkdep.nih.gov CBC with [id number] 05:49:00* Test Item Value Reference Range Comments WBC (test code=WBC) 7.1 K/cumm 4.4-10.5 RBC (test code=RBC) 3.67 M/cumm 3.75-5.20 Hemoglobin (test code=HGB) 11.5 gm/dL 12.2-14.8 Hematocrit (test code=HCT) 35.9 % 36.5-44.4 MCV (test code=MCV) 98.0 fL 80-100 MCH (test code=MCH) 31.3 pg 27.0-32.5 MCHC (test code=MCHC) 31.9 g/dL 32.0-37.5 RDW (test code=RDW) 14.5 % 11.5-14.5 Platelet Count (test code=PLTCT) 265 K/cumm 140-440 MPV (test code=MPV) 7.3 fL Diff Method (test code=DIFFM) Manual Neutrophil (test code=NEUT) 87.0 % 36-70 Lymphocyte (test code=LYMPH) 8.0 % 12-44 Monocyte (test code=MONO) 5.0 % 0-11 Neutro Abs (test code=ANEUT) 6.2 K/cumm 1.6-7.4 Lymph Abs (test code=ALYMPH) 0.6 K/cumm 0.5-4.6 [place] Abs (test code=AMONO) 0.4 K/cumm 0.0-1.2 RBC Morphology (test code=RBCMRPH) Slight Hypochromia Platelet Est (test code=PLTEST) Normal Platelet on Smear Prothrombin [id number] 04:43:00* Test Item Value Reference Range Comments PT (test code=PT) 23.00 seconds 9.78-13.35 INR (test code=INR) 2.03 Ratio 0.6-1.2 [id number] 04:43:00* Test Item Value Reference Range Comments Phosphorus (test code=PO4) 2.4 mg/dL 2.70-4.50 Culture, [id number] 12:59:00Specimen: UrineCollected: 05/22/2017 16:40 Status: Final Last Updated: 05/25/2017 12:59 Culture Result (Final) (Final) 05/24/17 <10,000 CFU/mL Gamma Hemolytic Streptococcus Isolate (Final) (Final) 05/24/17 >100,000 CFU/mL Escherichia coli Amikacin <=16 Susceptible Ampicillin >16 Resistant Ampicillin/Sulb 16/8 Intermediate Cefazolin <=8 Susceptible Cefepime <=4 Susceptible Cefotaxime <=2 Susceptible Ceftazidime <=1 Susceptible Ceftriaxone <=1 Susceptible Cefuroxime <=4 Susceptible Ciprofloxacin <=1 Susceptible Gentamicin >8 Resistant Imipenem <=1 Susceptible Levofloxacin <=2 Susceptible Meropenem <=1 Susceptible Nitrofurantoin <=32 Susceptible Piperacillin/Tazo <=16 Susceptible Tobramycin <=4 Susceptible Trimethoprim/Sulfa >2/38 Resistant Basic Metabolic [id number] 12:44:00* Test Item Value Reference Range Comments Sodium (test code=NA) 138 mmol/L 135-145 Potassium (test code=K) 3.9 mmol/L 3.5-5.1 Chloride (test code=CL) 105 mmol/L 98-105 Carbon Dioxide (test code=CO2) 22 mmol/L 22-29 Glucose (test code=GLU) 91 mg/dL 70-115 Blood Urea Nitrogen (test code=BUN) 14 mg/dL 8-23 Creatinine (test code=CREAT) 0.7 mg/dL 0.5-0.9 Calcium (test code=CA) 7.5 mg/dL 8.3-10.5 BUN/Creatinine Ratio (test code=BCRATIO) 20.0 Anion Gap (test code=AGAP) 11 mmol/L 7-16 Estimated GFR (test code=GFR) >60 mL/min/1.73m2 eGFR (estimated Glomerular Filtration Rate) is an estimated value,calculated from the patient's serum creatinine using the MDRD equation.It is NOT the patient's actual GFR. The eGFR provides a more clinicallyuseful measure of kidney disease than serum creatinine alone.This calculation takes sex and race into account, if the informationis provided. If the race is not provided, and the patient isAfrican-Bangl[place]hi, multiply by 1.212. If sex is not provided, and thepatient is female, multiply by 0.742. Results for patients <18 years ofage have not been validated by the MDRD study and should be interpretedwith caution.eGFR Result Interpretation:eGFR > or=60 is in the Normal RangeeGFR < 60 may mean kidney diseaseeGFR < 15 may mean kidney failureRanges recommended by the National Kidney Foundat ion,http://nkdep.nih.gov [id number] 02:51:00* Test Item Value Reference Range Comments Phosphorus (test code=PO4) 3.4 mg/dL 2.70-4.50 Basic Metabolic [id number] 02:51:00* Test Item Value Reference Range Comments Sodium (test code=NA) 137 mmol/L 135-145 Potassium (test code=K) 3.7 mmol/L 3.5-5.1 Chloride (test code=CL) 102 mmol/L 98-105 Carbon Dioxide (test code=CO2) 25 mmol/L 22-29 Glucose (test code=GLU) 139 mg/dL 70-115 Blood Urea Nitrogen (test code=BUN) 13 mg/dL 8-23 Creatinine (test code=CREAT) 0.7 mg/dL 0.5-0.9 Calcium (test code=CA) 7.2 mg/dL 8.3-10.5 BUN/Creatinine Ratio (test code=BCRATIO) 18.6 Anion Gap (test code=AGAP) 10 mmol/L 7-16 Estimated GFR (test code=GFR) >60 mL/min/1.73m2 eGFR (estimated Glomerular Filtration Rate) is an estimated value,calculated from the patient's serum creatinine using the MDRD equation.It is NOT the patient's actual GFR. The eGFR provides a more clinicallyuseful measure of kidney disease than serum creatinine alone.This calculation takes sex and race into account, if the informationis provided. If the race is not provided, and the patient isAfrican-Bangl[place]hi, multiply by 1.212. If sex is not provided, and thepatient is female, multiply by 0.742. Results for patients <18 years ofage have not been validated by the MDRD study and should be interpretedwith caution.eGFR Result Interpretation:eGFR > or=60 is in the Normal RangeeGFR < 60 may mean kidney diseaseeGFR < 15 may mean kidney failureRanges recommended by the National Kidney Foundat ion,http://nkdep.nih.gov CBC with [id number] 02:42:00* Test Item Value Reference Range Comments WBC (test code=WBC) 7.4 K/cumm 4.4-10.5 RBC (test code=RBC) 3.93 M/cumm 3.75-5.20 Hemoglobin (test code=HGB) 12.4 gm/dL 12.2-14.8 Hematocrit (test code=HCT) 37.9 % 36.5-44.4 MCV (test code=MCV) 96.6 fL 80-100 MCH (test code=MCH) 31.5 pg 27.0-32.5 MCHC (test code=MCHC) 32.6 g/dL 32.0-37.5 RDW (test code=RDW) 14.0 % 11.5-14.5 Platelet Count (test code=PLTCT) 305 K/cumm 140-440 MPV (test code=MPV) 7.5 fL Diff Method (test code=DIFFM) Auto Neutrophil (test code=NEUT) 86.3 % 36-70 Lymphocyte (test code=LYMPH) 6.4 % 12-44 Monocyte (test code=MONO) 6.8 % 0-11 Eosinophil (test code=EOS) 0.4 % 0-7 Basophil (test code=BASO) 0.1 % 0-2 Neutro Abs (test code=ANEUT) 6.4 K/cumm 1.6-7.4 Lymph Abs (test code=ALYMPH) 0.5 K/cumm 0.5-4.6 [place] Abs (test code=AMONO) 0.5 K/cumm 0.0-1.2 Eos Abs (test code=AEOS) 0.03 K/cumm 0.00-0.74 Baso Abs (test code=ABASO) 0.0 K/cumm 0.00-0.21 Prothrombin [id number] 02:35:00* Test Item Value Reference Range Comments PT (test code=PT) 23.90 seconds 9.78-13.35 INR (test code=INR) 2.13 Ratio 0.6-1.2 Basic Metabolic [id number] 21:18:00* Test Item Value Reference Range Comments Sodium (test code=NA) 137 mmol/L 135-145 Potassium (test code=K) 3.7 mmol/L 3.5-5.1 Chloride (test code=CL) 103 mmol/L 98-105 Carbon Dioxide (test code=CO2) 23 mmol/L 22-29 Glucose (test code=GLU) 156 mg/dL 70-115 Blood Urea Nitrogen (test code=BUN) 13 mg/dL 8-23 Creatinine (test code=CREAT) 0.7 mg/dL 0.5-0.9 Calcium (test code=CA) 7.2 mg/dL 8.3-10.5 BUN/Creatinine Ratio (test code=BCRATIO) 18.6 Anion Gap (test code=AGAP) 11 mmol/L 7-16 Estimated GFR (test code=GFR) >60 mL/min/1.73m2 eGFR (estimated Glomerular Filtration Rate) is an estimated value,calculated from the patient's serum creatinine using the MDRD equation.It is NOT the patient's actual GFR. The eGFR provides a more clinicallyuseful measure of kidney disease than serum creatinine alone.This calculation takes sex and race into account, if the informationis provided. If the race is not provided, and the patient isAfrican-Bangl[place]hi, multiply by 1.212. If sex is not provided, and thepatient is female, multiply by 0.742. Results for patients <18 years ofage have not been validated by the MDRD study and should be interpretedwith caution.eGFR Result Interpretation:eGFR > or=60 is in the Normal RangeeGFR < 60 may mean kidney diseaseeGFR < 15 may mean kidney failureRanges recommended by the National Kidney Foundat ion,http://nkdep.nih.gov Basic Metabolic [id number] 20:08:00* Test Item Value Reference Range Comments Sodium (test code=NA) 150 mmol/L 135-145 Potassium (test code=K) 3.6 mmol/L 3.5-5.1 Chloride (test code=CL) 118 mmol/L 98-105 Carbon Dioxide (test code=CO2) 23 mmol/L 22-29 Glucose (test code=GLU) 131 mg/dL 70-115 Blood Urea Nitrogen (test code=BUN) 13 mg/dL 8-23 Creatinine (test code=CREAT) 0.6 mg/dL 0.5-0.9 Calcium (test code=CA) 6.7 mg/dL 8.3-10.5 VERIFIED BY REPEAT TESTINGCALLED 7527 3X. NO ANSWER. CALLED 7080. NO ANSWER. TO FOLLOW UPLATER..../OG BUN/Creatinine Ratio (test code=BCRATIO) 21.7 Anion Gap (test code=AGAP) 9 mmol/L 7-16 Estimated GFR (test code=GFR) >60 mL/min/1.73m2 eGFR (estimated Glomerular Filtration Rate) is an estimated value,calculated from the patient's serum creatinine using the MDRD equation.It is NOT the patient's actual GFR. The eGFR provides a more clinicallyuseful measure of kidney disease than serum creatinine alone.This calculation takes sex and race into account, if the informationis provided. If the race is not provided, and the patient isAfrican-B[place]hi, multiply by 1.212. If sex is not provided, and thepatient is female, multiply by 0.742. Results for patients <18 years ofage have not been validated by the MDRD study and should be interpretedwith caution.eGFR Result Interpretation:eGFR > or=60 is in the Normal RangeeGFR < 60 may mean kidney diseaseeGFR < 15 may mean kidney failureRanges recommended by the National Kidney Foundat ion,http://nkdep.nih.gov Basic Metabolic [id number] 12:05:00* Test Item Value Reference Range Comments Sodium (test code=NA) 135 mmol/L 135-145 Potassium (test code=K) 3.7 mmol/L 3.5-5.1 Chloride (test code=CL) 100 mmol/L 98-105 Carbon Dioxide (test code=CO2) 21 mmol/L 22-29 Glucose (test code=GLU) 176 mg/dL 70-115 Blood Urea Nitrogen (test code=BUN) 13 mg/dL 8-23 Creatinine (test code=CREAT) 0.8 mg/dL 0.5-0.9 Calcium (test code=CA) 7.7 mg/dL 8.3-10.5 BUN/Creatinine Ratio (test code=BCRATIO) 16.3 Anion Gap (test code=AGAP) 14 mmol/L 7-16 Estimated GFR (test code=GFR) >60 mL/min/1.73m2 eGFR (estimated Glomerular Filtration Rate) is an estimated value,calculated from the patient's serum creatinine using the MDRD equation.It is NOT the patient's actual GFR. The eGFR provides a more clinicallyuseful measure of kidney disease than serum creatinine alone.This calculation takes sex and race into account, if the informationis provided. If the race is not provided, and the patient isAfrican-B[place], multiply by 1.212. If sex is not provided, and thepatient is female, multiply by 0.742. Results for patients <18 years ofage have not been validated by the MDRD study and should be interpretedwith caution.eGFR Result Interpretation:eGFR > or=60 is in the Normal RangeeGFR < 60 may mean kidney diseaseeGFR < 15 may mean kidney failureRanges recommended by the National Kidney Foundat ion,http://nkdep.nih.gov Basic Metabolic [id number] 07:08:00* Test Item Value Reference Range Comments Sodium (test code=NA) 134 mmol/L 135-145 Potassium (test code=K) 4.1 mmol/L 3.5-5.1 Chloride (test code=CL) 103 mmol/L 98-105 Carbon Dioxide (test code=CO2) 20 mmol/L 22-29 Glucose (test code=GLU) 125 mg/dL 70-115 Blood Urea Nitrogen (test code=BUN) 12 mg/dL 8-23 Creatinine (test code=CREAT) 0.6 mg/dL 0.5-0.9 Calcium (test code=CA) 7.5 mg/dL 8.3-10.5 BUN/Creatinine Ratio (test code=BCRATIO) 20.0 Anion Gap (test code=AGAP) 11 mmol/L 7-16 Estimated GFR (test code=GFR) >60 mL/min/1.73m2 eGFR (estimated Glomerular Filtration Rate) is an estimated value,calculated from the patient's serum creatinine using the MDRD equation.It is NOT the patient's actual GFR. The eGFR provides a more clinicallyuseful measure of kidney disease than serum creatinine alone.This calculation takes sex and race into account, if the informationis provided. If the race is not provided, and the patient isAfrican-[place], multiply by 1.212. If sex is not provided, and thepatient is female, multiply by 0.742. Results for patients <18 years ofage have not been validated by the MDRD study and should be interpretedwith caution.eGFR Result Interpretation:eGFR > or=60 is in the Normal RangeeGFR < 60 may mean kidney diseaseeGFR < 15 may mean kidney failureRanges recommended by the National Kidney Foundat ion,http://nkdep.nih.gov CBC with [id number] 06:44:00* Test Item Value Reference Range Comments WBC (test code=WBC) 7.3 K/cumm 4.4-10.5 RBC (test code=RBC) 3.89 M/cumm 3.75-5.20 Hemoglobin (test code=HGB) 12.1 gm/dL 12.2-14.8 Hematocrit (test code=HCT) 37.7 % 36.5-44.4 MCV (test code=MCV) 96.7 fL 80-100 MCH (test code=MCH) 31.2 pg 27.0-32.5 MCHC (test code=MCHC) 32.2 g/dL 32.0-37.5 RDW (test code=RDW) 14.1 % 11.5-14.5 Platelet Count (test code=PLTCT) 309 K/cumm 140-440 MPV (test code=MPV) 7.8 fL Diff Method (test code=DIFFM) Manual Neutrophil (test code=NEUT) 94.0 % 36-70 Lymphocyte (test code=LYMPH) 4.0 % 12-44 Monocyte (test code=MONO) 2.0 % 0-11 Neutro Abs (test code=ANEUT) 6.9 K/cumm 1.6-7.4 Lymph Abs (test code=ALYMPH) 0.3 K/cumm 0.5-4.6 [place] Abs (test code=AMONO) 0.1 K/cumm 0.0-1.2 RBC Morphology (test code=RBCMRPH) Normal Platelet Est (test code=PLTEST) Normal Platelet on Smear [id number] 04:58:00* Test Item Value Reference Range Comments Phosphorus (test code=PO4) 2.1 mg/dL 2.70-4.50 Prothrombin [id number] 04:56:00* Test Item Value Reference Range Comments PT (test code=PT) 26.00 seconds 9.78-13.35 INR (test code=INR) 2.30 Ratio 0.6-1.2 Prothrombin [id number] 04:39:00* Test Item Value Reference Range Comments PT (test code=PT) 27.00 seconds 9.78-13.35 INR (test code=INR) 2.41 Ratio 0.6-1.2 Basic Metabolic [id number] 04:11:00* Test Item Value Reference Range Comments Sodium (test code=NA) 135 mmol/L 135-145 Potassium (test code=K) 3.6 mmol/L 3.5-5.1 Chloride (test code=CL) 105 mmol/L 98-105 Carbon Dioxide (test code=CO2) 21 mmol/L 22-29 Glucose (test code=GLU) 131 mg/dL 70-115 Blood Urea Nitrogen (test code=BUN) 10 mg/dL 8-23 Creatinine (test code=CREAT) 0.6 mg/dL 0.5-0.9 Calcium (test code=CA) 7.0 mg/dL 8.3-10.5 BUN/Creatinine Ratio (test code=BCRATIO) 16.7 Anion Gap (test code=AGAP) 9 mmol/L 7-16 Estimated GFR (test code=GFR) >60 mL/min/1.73m2 eGFR (estimated Glomerular Filtration Rate) is an estimated value,calculated from the patient's serum creatinine using the MDRD equation.It is NOT the patient's actual GFR. The eGFR provides a more clinicallyuseful measure of kidney disease than serum creatinine alone.This calculation takes sex and race into account, if the informationis provided. If the race is not provided, and the patient isAfrican-Bangl[place]hi, multiply by 1.212. If sex is not provided, and thepatient is female, multiply by 0.742. Results for patients <18 years ofage have not been validated by the MDRD study and should be interpretedwith caution.eGFR Result Interpretation:eGFR > or=60 is in the Normal RangeeGFR < 60 may mean kidney diseaseeGFR < 15 may mean kidney failureRanges recommended by the National Kidney Foundat ion,http://nkdep.nih.gov [id number] 04:11:00* Test Item Value Reference Range Comments Phosphorus (test code=PO4) 2.5 mg/dL 2.70-4.50 CBC with [id number] 03:47:00* Test Item Value Reference Range Comments WBC (test code=WBC) 6.5 K/cumm 4.4-10.5 RBC (test code=RBC) 3.98 M/cumm 3.75-5.20 Hemoglobin (test code=HGB) 12.5 gm/dL 12.2-14.8 Hematocrit (test code=HCT) 37.9 % 36.5-44.4 MCV (test code=MCV) 95.2 fL 80-100 MCH (test code=MCH) 31.5 pg 27.0-32.5 MCHC (test code=MCHC) 33.1 g/dL 32.0-37.5 RDW (test code=RDW) 14.2 % 11.5-14.5 Platelet Count (test code=PLTCT) 308 K/cumm 140-440 MPV (test code=MPV) 8.3 fL Diff Method (test code=DIFFM) Auto Neutrophil (test code=NEUT) 90.0 % 36-70 Lymphocyte (test code=LYMPH) 5.8 % 12-44 Monocyte (test code=MONO) 3.9 % 0-11 Eosinophil (test code=EOS) 0.2 % 0-7 Basophil (test code=BASO) 0.1 % 0-2 Neutro Abs (test code=ANEUT) 5.8 K/cumm 1.6-7.4 Lymph Abs (test code=ALYMPH) 0.4 K/cumm 0.5-4.6 [place] Abs (test code=AMONO) 0.3 K/cumm 0.0-1.2 Eos Abs (test code=AEOS) 0.01 K/cumm 0.00-0.74 Baso Abs (test code=ABASO) 0.0 K/cumm 0.00-0.21 Basic Metabolic [id number] 18:34:00* Test Item Value Reference Range Comments Sodium (test code=NA) 136 mmol/L 135-145 Potassium (test code=K) 3.6 mmol/L 3.5-5.1 Chloride (test code=CL) 103 mmol/L 98-105 Carbon Dioxide (test code=CO2) 18 mmol/L 22-29 Glucose (test code=GLU) 153 mg/dL 70-115 Blood Urea Nitrogen (test code=BUN) 10 mg/dL 8-23 Creatinine (test code=CREAT) 0.7 mg/dL 0.5-0.9 Calcium (test code=CA) 7.5 mg/dL 8.3-10.5 BUN/Creatinine Ratio (test code=BCRATIO) 14.3 Anion Gap (test code=AGAP) 15 mmol/L 7-16 Estimated GFR (test code=GFR) >60 mL/min/1.73m2 eGFR (estimated Glomerular Filtration Rate) is an estimated value,calculated from the patient's serum creatinine using the MDRD equation.It is NOT the patient's actual GFR. The eGFR provides a more clinicallyuseful measure of kidney disease than serum creatinine alone.This calculation takes sex and race into account, if the informationis provided. If the race is not provided, and the patient isAfrican-Bangladeshi, multiply by 1.212. If sex is not provided, and thepatient is female, multiply by 0.742. Results for patients <18 years ofage have not been validated by the MDRD study and should be interpretedwith caution.eGFR Result Interpretation:eGFR > or=60 is in the Normal RangeeGFR < 60 may mean kidney diseaseeGFR < 15 may mean kidney failureRanges recommended by the National Kidney Foundat ion,http://nkdep.nih.gov Urinalysis [id number] 17:54:00* Test Item Value Reference Range Comments Color (test code=COLOR) Yellow Yellow,Straw,Pl yellow Clarity (test code=CLAR) Sl Cloudy Clear Specific [place] (test code=SPGR) 1.027 1.001-1.035 pH (test code=PH) 5.0 5.0-9.0 Ketone (test code=KET) 5 mg/dL Negative Glucose (test code=GLUCUR) Negative mg/dL Negative Protein (test code=PROT) 25 mg/dL Negative Bilirubin (test code=BILI) Negative mg/dL Negative Occult Blood (test code=UDOB) Large Negative Urobilinogen (test code=UROB) 0.2 mg/dL 0.2-1.0 Nitrite (test code=NIT) Positive Negative Leuk Esterase (test code=LEUK) Small Negative Micros Exam (test code=MEXAM) Indicated Epithelial Cells (test code=EPI) 6-9 /LPF 0-30 WBC, Urine (test code=UWBC) 11-20 /HPF 0-5 RBC, Urine (test code=URBC) >182 /HPF 0-5 Bacteria (test code=BACT) Moderate /HPF XR CHEST 1 [id number] 12:37:44XR CHEST 1 VIEWLOCATION: [id number]: chest radiograph 05/12/2017INDICATION: PICC LINE INSERTION DISCUSSION:A single AP chest radiograph was submitted for interpretation.Median sternotomy changes are noted. Left PICC line terminates over thelow SVC.There is no definite evidence for pneumothorax.There is mild central pulmonary vascular congestion with mild bibasilaropacity.The cardiac silhouette is enlarged, but stable.Aortic calcifications are present. Osseous structures are grossly stable.IMPRESSION:1. Left PICC line terminates over the low SVC. No evidence forpneumothorax.2. Mild central pulmonary vascular congestion with mild bibasilaropacity.3. Stable, enlarged cardiac silhouette.CT HEAD OR BRAIN WO [id number] 08:31:53CT HEAD WITHOUT CONTRASTLOCATION: [id number]: Head CT 05/19/2017 and 05/16/2017INDICATION: stroke Technique: Noncontrast axial scans were obtained from skull base to the vertex. Coronal and sagittal reconstructions obtained from the axial data. Oneor more of the following dose reduction techniques were used: Automatedexposure control, adjustment of the mA and/or kV according to patientsize, and/or utilization of iterative reconstruction technique.DISCUSSION:Scalp/Skull:Right parietal scalp hematoma is again noted. No calvarial fracture isseenBrain sulci: Appropriate for patient's age.Ventricles: The fourth ventricle is mildly effaced inferiorly.Otherwise, normal in size and configuration.Extra-axial spaces:No masses or fluid collections. Mild carotid siphon calcifications arepresentParenchyma: Evolving left cerebellar acute infarct is noted. Associated cytotoxicedema has not significantly changed. There is unchanged minimal left toright midline shift with local posterior fossa crowding. Otherwise, nofrank herniation is seen. Cortical hyperdensity in the inferior leftcerebellum is unchanged.Mild periventricular white matter hypodensities are likely chronicmicrovascular ische lori changes. Otherwise, no masses, hemorrhage, orother large vascular territory acute infarct.Dural sinuses: No abnormal densities.Sellar/Suprasellar region: I ntact.Skull base: Intact.IMPRESSION:1. Evolving left cerebellar acute infarct. Associated cytotoxic edemahas not significantly changed. Unchanged minimal left to right midlineshift with local posterior fossa crowding. Otherwise, no frankhe rniation.2. Unchanged mild cortical hyperdensity in the inferior left cerebellu mcould be due to petechial hemorrhagic conversion.3. The inferior fourth ventri deborah is mildly effaced. The ventricles areotherwise normal in size.CBC with [id number] 05:48:00* Test Item Value Reference Range Comments WBC (test code=WBC) 9.4 K/cumm 4.4-10.5 RBC (test code=RBC) 3.90 M/cumm 3.75-5.20 Hemoglobin (test code=HGB) 12.3 gm/dL 12.2-14.8 Hematocrit (test code=HCT) 38.0 % 36.5-44.4 MCV (test code=MCV) 97.3 fL 80-100 MCH (test code=MCH) 31.6 pg 27.0-32.5 MCHC (test code=MCHC) 32.5 g/dL 32.0-37.5 RDW (test code=RDW) 14.1 % 11.5-14.5 Platelet Count (test code=PLTCT) 358 K/cumm 140-440 MPV (test code=MPV) 8.0 fL Diff Method (test code=DIFFM) Auto Neutrophil (test code=NEUT) 85.0 % 36-70 Lymphocyte (test code=LYMPH) 5.5 % 12-44 Monocyte (test code=MONO) 9.4 % 0-11 Eosinophil (test code=EOS) 0.2 % 0-7 Basophil (test code=BASO) 0.1 % 0-2 Neutro Abs (test code=ANEUT) 8.0 K/cumm 1.6-7.4 Lymph Abs (test code=ALYMPH) 0.5 K/cumm 0.5-4.6 [place] Abs (test code=AMONO) 0.9 K/cumm 0.0-1.2 Eos Abs (test code=AEOS) 0.02 K/cumm 0.00-0.74 Baso Abs (test code=ABASO) 0.0 K/cumm 0.00-0.21 [id number] 04:55:00* Test Item Value Reference Range Comments Phosphorus (test code=PO4) 2.8 mg/dL 2.70-4.50 Magnesium, [id number] 04:55:00* Test Item Value Reference Range Comments Magnesium (test code=MG) 2.1 mg/dL 1.7-2.5 Basic Metabolic [id number] 04:55:00* Test Item Value Reference Range Comments Sodium (test code=NA) 133 mmol/L 135-145 Potassium (test code=K) 4.3 mmol/L 3.5-5.1 Chloride (test code=CL) 104 mmol/L 98-105 Carbon Dioxide (test code=CO2) 19 mmol/L 22-29 Glucose (test code=GLU) 117 mg/dL 70-115 Blood Urea Nitrogen (test code=BUN) 11 mg/dL 8-23 Creatinine (test code=CREAT) 0.7 mg/dL 0.5-0.9 Calcium (test code=CA) 7.7 mg/dL 8.3-10.5 BUN/Creatinine Ratio (test code=BCRATIO) 15.7 Anion Gap (test code=AGAP) 10 mmol/L 7-16 Estimated GFR (test code=GFR) >60 mL/min/1.73m2 eGFR (estimated Glomerular Filtration Rate) is an estimated value,calculated from the patient's serum creatinine using the MDRD equation.It is NOT the patient's actual GFR. The eGFR provides a more clinicallyuseful measure of kidney disease than serum creatinine alone.This calculation takes sex and race into account, if the informationis provided. If the race is not provided, and the patient isAfrican-Bangladeshi, multiply by 1.212. If sex is not provided, and thepatient is female, multiply by 0.742. Results for patients <18 years ofage have not been validated by the MDRD study and should be interpretedwith caution.eGFR Result Interpretation:eGFR > or=60 is in the Normal RangeeGFR < 60 may mean kidney diseaseeGFR < 15 may mean kidney failureRanges recommended by the National Kidney Foundat ion,http://nkdep.nih.gov Prothrombin [id number] 04:37:00* Test Item Value Reference Range Comments PT (test code=PT) 25.80 seconds 9.78-13.35 INR (test code=INR) 2.30 Ratio 0.6-1.2 XR ABDOMEN KUB [id number] 16:38:05XR ABDOMEN KUB 1VLOCATION: [id number]: abd crampingCOMPARISON: CT of the abdomen and pelvis 05/14/2017FINDINGS: A single AP abdominal radiograph was submitted for interpretation.Mild diffuse colonic distention is nonspecific.A moderate amount of stool is seen in the right colon.There is no evidence for pneumoperitoneum.Osseous structures are grossly stable.IMPRESSION: 1. Nonspecific mild diffuse colonic distention.2. Moderate amount of stool in the right colon.Prothrombin [id number] 06:35:00* Test Item Value Reference Range Comments PT (test code=PT) 27.50 seconds 9.78-13.35 INR (test code=INR) 2.46 Ratio 0.6-1.2 [id number] 05:42:00* Test Item Value Reference Range Comments Phosphorus (test code=PO4) 2.8 mg/dL 2.70-4.50 Magnesium, [id number] 05:42:00* Test Item Value Reference Range Comments Magnesium (test code=MG) 2.1 mg/dL 1.7-2.5 Basic Metabolic [id number] 05:42:00* Test Item Value Reference Range Comments Sodium (test code=NA) 137 mmol/L 135-145 Potassium (test code=K) 3.9 mmol/L 3.5-5.1 Chloride (test code=CL) 106 mmol/L 98-105 Carbon Dioxide (test code=CO2) 18 mmol/L 22-29 Glucose (test code=GLU) 122 mg/dL 70-115 Blood Urea Nitrogen (test code=BUN) 11 mg/dL 8-23 Creatinine (test code=CREAT) 0.7 mg/dL 0.5-0.9 Calcium (test code=CA) 7.6 mg/dL 8.3-10.5 BUN/Creatinine Ratio (test code=BCRATIO) 15.7 Anion Gap (test code=AGAP) 13 mmol/L 7-16 Estimated GFR (test code=GFR) >60 mL/min/1.73m2 eGFR (estimated Glomerular Filtration Rate) is an estimated value,calculated from the patient's serum creatinine using the MDRD equation.It is NOT the patient's actual GFR. The eGFR provides a more clinicallyuseful measure of kidney disease than serum creatinine alone.This calculation takes sex and race into account, if the informationis provided. If the race is not provided, and the patient isAfrican-Bangladeshi, multiply by 1.212. If sex is not provided, and thepatient is female, multiply by 0.742. Results for patients <18 years ofage have not been validated by the MDRD study and should be interpretedwith caution.eGFR Result Interpretation:eGFR > or=60 is in the Normal RangeeGFR < 60 may mean kidney diseaseeGFR < 15 may mean kidney failureRanges recommended by the National Kidney Foundat ion,http://nkdep.nih.gov CBC with [id number] 05:34:00* Test Item Value Reference Range Comments WBC (test code=WBC) 9.2 K/cumm 4.4-10.5 RBC (test code=RBC) 3.83 M/cumm 3.75-5.20 Hemoglobin (test code=HGB) 12.1 gm/dL 12.2-14.8 Hematocrit (test code=HCT) 37.1 % 36.5-44.4 MCV (test code=MCV) 96.8 fL 80-100 MCH (test code=MCH) 31.6 pg 27.0-32.5 MCHC (test code=MCHC) 32.6 g/dL 32.0-37.5 RDW (test code=RDW) 14.3 % 11.5-14.5 Platelet Count (test code=PLTCT) 275 K/cumm 140-440 MPV (test code=MPV) 8.1 fL Diff Method (test code=DIFFM) Auto Neutrophil (test code=NEUT) 89.4 % 36-70 Lymphocyte (test code=LYMPH) 5.8 % 12-44 Monocyte (test code=MONO) 4.5 % 0-11 Eosinophil (test code=EOS) 0.2 % 0-7 Basophil (test code=BASO) 0.0 % 0-2 Neutro Abs (test code=ANEUT) 8.2 K/cumm 1.6-7.4 Lymph Abs (test code=ALYMPH) 0.5 K/cumm 0.5-4.6 [place] Abs (test code=AMONO) 0.4 K/cumm 0.0-1.2 Eos Abs (test code=AEOS) 0.02 K/cumm 0.00-0.74 Baso Abs (test code=ABASO) 0.0 K/cumm 0.00-0.21 Basic Metabolic [id number] 09:34:00* Test Item Value Reference Range Comments Sodium (test code=NA) 132 mmol/L 135-145 Potassium (test code=K) 4.0 mmol/L 3.5-5.1 Chloride (test code=CL) 101 mmol/L 98-105 Carbon Dioxide (test code=CO2) 15 mmol/L 22-29 Glucose (test code=GLU) 126 mg/dL 70-115 Blood Urea Nitrogen (test code=BUN) 9 mg/dL 8-23 Creatinine (test code=CREAT) 0.8 mg/dL 0.5-0.9 Calcium (test code=CA) 8.3 mg/dL 8.3-10.5 BUN/Creatinine Ratio (test code=BCRATIO) 11.3 Anion Gap (test code=AGAP) 16 mmol/L 7-16 Estimated GFR (test code=GFR) >60 mL/min/1.73m2 eGFR (estimated Glomerular Filtration Rate) is an estimated value,calculated from the patient's serum creatinine using the MDRD equation.It is NOT the patient's actual GFR. The eGFR provides a more clinicallyuseful measure of kidney disease than serum creatinine alone.This calculation takes sex and race into account, if the informationis provided. If the race is not provided, and the patient isAfrican-Bangladeshi, multiply by 1.212. If sex is not provided, and thepatient is female, multiply by 0.742. Results for patients <18 years ofage have not been validated by the MDRD study and should be interpretedwith caution.eGFR Result Interpretation:eGFR > or=60 is in the Normal RangeeGFR < 60 may mean kidney diseaseeGFR < 15 may mean kidney failureRanges recommended by the National Kidney Foundat ion,http://nkdep.nih.gov CBC with [id number] 05:14:00* Test Item Value Reference Range Comments WBC (test code=WBC) 6.5 K/cumm 4.4-10.5 RBC (test code=RBC) 3.49 M/cumm 3.75-5.20 Hemoglobin (test code=HGB) 11.0 gm/dL 12.2-14.8 Hematocrit (test code=HCT) 32.2 % 36.5-44.4 MCV (test code=MCV) 92.2 fL 80-100 MCH (test code=MCH) 31.6 pg 27.0-32.5 MCHC (test code=MCHC) 34.2 g/dL 32.0-37.5 RDW (test code=RDW) 14.1 % 11.5-14.5 Platelet Count (test code=PLTCT) 213 K/cumm 140-440 MPV (test code=MPV) 9.0 fL Diff Method (test code=DIFFM) Manual Neutrophil (test code=NEUT) 91.0 % 36-70 Bands (test code=BAND) 2.0 % 0-6 Lymphocyte (test code=LYMPH) 5.0 % 12-44 Monocyte (test code=MONO) 2.0 % 0-11 Neutro Abs (test code=ANEUT) 6.0 K/cumm 1.6-7.4 Lymph Abs (test code=ALYMPH) 0.3 K/cumm 0.5-4.6 [place] Abs (test code=AMONO) 0.1 K/cumm 0.0-1.2 RBC Morphology (test code=RBCMRPH) Normal Platelet Est (test code=PLTEST) Normal Platelet on Smear Magnesium, [id number] 05:04:00* Test Item Value Reference Range Comments Magnesium (test code=MG) 1.7 mg/dL 1.7-2.5 [id number] 05:04:00* Test Item Value Reference Range Comments Phosphorus (test code=PO4) 1.9 mg/dL 2.70-4.50 Prothrombin [id number] 04:45:00* Test Item Value Reference Range Comments PT (test code=PT) 31.00 seconds 9.78-13.35 INR (test code=INR) 2.75 Ratio 0.6-1.2 CT HEAD OR BRAIN WO [id number] 07:18:45CT HEAD WITHOUT CONTRASTLOCATION: R16 INDICATION: Evolving ischemic stroke COMPARISON: 05/18/2017TECHNIQUE: Axial scans were obtained from skull base to the vertex.Coronal and sagittal reconstructions obtained from the axial data. One or more of the following dose reduction techniques were used:Automated exposure control, adjustment of the mA and/or kV according topatient size, and/or utilization of iterative reconstruction techniqueFINDINGS: Redemonstrated is a right parietal lobe subgaleal (scalp) hematoma. Thecalvarium is intact without fracture. An evolving left cerebellar acute infarction is unchanged compared tothe prior exam. Hemorrhagic conversion is again noted and appearsunchanged. Surrounding e gerson is also unchanged. There is stable crowdingof the posterior fossa with mild effacement of the fourth ventricle.Mild microangiopathic changes are again note d. There is atheroscleroticcalcification of the carotid siphons.The visualized p aranasal sinuses and mastoids are clear. IMPRESSION: Stable evolving left cere bellar acute infarction with hemorrhagicconversion. Associated surrounding edema , posterior fossa crowding andmild effacement of the fourth ventricle is unchang ed. There is no frankherniation.Basic Metabolic [id number] 05:55:00* Test Item Value Reference Range Comments Sodium (test code=NA) 124 mmol/L 135-145 Potassium (test code=K) 4.1 mmol/L 3.5-5.1 Chloride (test code=CL) 92 mmol/L 98-105 Carbon Dioxide (test code=CO2) 20 mmol/L 22-29 Glucose (test code=GLU) 128 mg/dL 70-115 Blood Urea Nitrogen (test code=BUN) 9 mg/dL 8-23 Creatinine (test code=CREAT) 0.7 mg/dL 0.5-0.9 Calcium (test code=CA) 8.2 mg/dL 8.3-10.5 BUN/Creatinine Ratio (test code=BCRATIO) 12.9 Anion Gap (test code=AGAP) 12 mmol/L 7-16 Estimated GFR (test code=GFR) >60 mL/min/1.73m2 eGFR (estimated Glomerular Filtration Rate) is an estimated value,calculated from the patient's serum creatinine using the MDRD equation.It is NOT the patient's actual GFR. The eGFR provides a more clinicallyuseful measure of kidney disease than serum creatinine alone.This calculation takes sex and race into account, if the informationis provided. If the race is not provided, and the patient isAfrican-Bangladeshi, multiply by 1.212. If sex is not provided, and thepatient is female, multiply by 0.742. Results for patients <18 years ofage have not been validated by the MDRD study and should be interpretedwith caution.eGFR Result Interpretation:eGFR > or=60 is in the Normal RangeeGFR < 60 may mean kidney diseaseeGFR < 15 may mean kidney failureRanges recommended by the National Kidney Foundat ion,http://nkdep.nih.gov [id number] 05:55:00* Test Item Value Reference Range Comments Phosphorus (test code=PO4) 2.4 mg/dL 2.70-4.50 Magnesium, [id number] 05:55:00* Test Item Value Reference Range Comments Magnesium (test code=MG) 2.0 mg/dL 1.7-2.5 Prothrombin [id number] 05:27:00* Test Item Value Reference Range Comments PT (test code=PT) 25.90 seconds 9.78-13.35 INR (test code=INR) 2.31 Ratio 0.6-1.2 CBC with [id number] 05:15:00* Test Item Value Reference Range Comments WBC (test code=WBC) 6.2 K/cumm 4.4-10.5 RBC (test code=RBC) 4.24 M/cumm 3.75-5.20 Hemoglobin (test code=HGB) 13.7 gm/dL 12.2-14.8 Hematocrit (test code=HCT) 39.2 % 36.5-44.4 MCV (test code=MCV) 92.4 fL 80-100 MCH (test code=MCH) 32.3 pg 27.0-32.5 MCHC (test code=MCHC) 34.9 g/dL 32.0-37.5 RDW (test code=RDW) 13.5 % 11.5-14.5 Platelet Count (test code=PLTCT) 228 K/cumm 140-440 MPV (test code=MPV) 8.7 fL Diff Method (test code=DIFFM) Auto Neutrophil (test code=NEUT) 89.6 % 36-70 Lymphocyte (test code=LYMPH) 7.1 % 12-44 Monocyte (test code=MONO) 1.5 % 0-11 Eosinophil (test code=EOS) 1.7 % 0-7 Basophil (test code=BASO) 0.1 % 0-2 Neutro Abs (test code=ANEUT) 5.6 K/cumm 1.6-7.4 Lymph Abs (test code=ALYMPH) 0.4 K/cumm 0.5-4.6 [place] Abs (test code=AMONO) 0.1 K/cumm 0.0-1.2 Eos Abs (test code=AEOS) 0.10 K/cumm 0.00-0.74 Baso Abs (test code=ABASO) 0.0 K/cumm 0.00-0.21 CT HEAD OR BRAIN WO [id number] 13:24:43CT HEAD WITHOUT CONTRASTLOCATION: [id number]: Head CT 05/17/2017 and 05/16/2017INDICATION: cva Technique: Noncontrast axial scans were obtained from skull base to the vertex. Coronal and sagittal reconstructions obtained from the axial data. Oneor more of the following dose reduction techniques were used: Automatedexposure control, adjustment of the mA and/or kV according to patientsize, and/or utilization of iterative reconstruction technique.DISCUSSION:Scalp/Skull:Right parietal scalp hematoma is again noted. No calvarial fracture isseenBrain sulci: Appropriate for patient's age.Ventricles: The fourth ventricle is mildly effaced inferiorly.Otherwise, normal in size and configuration.Extra-axial spaces:No masses or fluid collections. Mild carotid siphon calcifications arepresentPa renchyma: Evolving left cerebellar acute infarct is noted. Associated cytotoxice gerson has not significantly changed. There is minimal left to rightmidline shift with local posterior fossa crowding. Otherwise, no frankherniation is seen. Will ical hyperdensity in the inferior leftcerebellum is more conspicuous.Mild perive ntricular white matter hypodensities are likely chronicmicrovascular ischemic ch anges. Otherwise, no masses, hemorrhage, orother large vascular territory acute infarct.Dural sinuses: No abnormal densities.Sellar/Suprasellar region: Intact. Skull base: Intact.IMPRESSION:1. Evolving left cerebellar acute infarct. Associ ated cytotoxic edemahas not significantly changed. Minimal left to right midlin e shift withlocal posterior fossa crowding. Otherwise, no michelle herniation.2. M ore conspicuous mild cortical hyperdensity in the inferior leftcerebellum could be due to petechial hemorrhagic conversion.3. The inferior fourth ventricle is mildly effaced. The ventricles areotherwise normal in size.Comprehensive Metabolic [id number] 09:22:00* Test Item Value Reference Range Comments Sodium (test code=NA) 129 mmol/L 135-145 Potassium (test code=K) 4.2 mmol/L 3.5-5.1 Chloride (test code=CL) 92 mmol/L 98-105 Carbon Dioxide (test code=CO2) 26 mmol/L 22-29 Glucose (test code=GLU) 113 mg/dL 70-115 Blood Urea Nitrogen (test code=BUN) 6 mg/dL 8-23 Creatinine (test code=CREAT) 0.7 mg/dL 0.5-0.9 Calcium (test code=CA) 8.3 mg/dL 8.3-10.5 Prot Total (test code=TP) 6.4 g/dL 6.4-8.3 Albumin (test code=ALB) 3.9 g/dL 3.5-5.2 A/G Ratio (test code=AGRATIO) 1.6 Ratio Globulin (test code=GLOB) 2.5 2.9-3.1 Bili Total (test code=TBIL) 0.5 mg/dL 0.1-0.9 Alk Phos (test code=APHOS) 87 U/L 35-104 AST (test code=AST) 49 U/L 1-32 ALT (test code=ALT) 60 U/L 1-33 BUN/Creatinine Ratio (test code=BCRATIO) 8.6 Anion Gap (test code=AGAP) 11 mmol/L 7-16 Estimated GFR (test code=GFR) >60 mL/min/1.73m2 eGFR (estimated Glomerular Filtration Rate) is an estimated value,calculated from the patient's serum creatinine using the MDRD equation.It is NOT the patient's actual GFR. The eGFR provides a more clinicallyuseful measure of kidney disease than serum creatinine alone.This calculation takes sex and race into account, if the informationis provided. If the race is not provided, and the patient isAfrican-Bangladeshi, multiply by 1.212. If sex is not provided, and thepatient is female, multiply by 0.742. Results for patients <18 years ofage have not been validated by the MDRD study and should be interpretedwith caution.eGFR Result Interpretation:eGFR > or=60 is in the Normal RangeeGFR < 60 may mean kidney diseaseeGFR < 15 may mean kidney failureRanges recommended by the National Kidney Foundat ion,http://nkdep.nih.gov CBC with [id number] 09:01:00* Test Item Value Reference Range Comments WBC (test code=WBC) 9.1 K/cumm 4.4-10.5 RBC (test code=RBC) 4.02 M/cumm 3.75-5.20 Hemoglobin (test code=HGB) 13.0 gm/dL 12.2-14.8 Hematocrit (test code=HCT) 37.3 % 36.5-44.4 MCV (test code=MCV) 92.8 fL 80-100 MCH (test code=MCH) 32.4 pg 27.0-32.5 MCHC (test code=MCHC) 34.9 g/dL 32.0-37.5 RDW (test code=RDW) 13.6 % 11.5-14.5 Platelet Count (test code=PLTCT) 220 K/cumm 140-440 MPV (test code=MPV) 8.1 fL Diff Method (test code=DIFFM) Auto Neutrophil (test code=NEUT) 84.6 % 36-70 Lymphocyte (test code=LYMPH) 9.8 % 12-44 Monocyte (test code=MONO) 5.0 % 0-11 Eosinophil (test code=EOS) 0.4 % 0-7 Basophil (test code=BASO) 0.1 % 0-2 Neutro Abs (test code=ANEUT) 7.7 K/cumm 1.6-7.4 Lymph Abs (test code=ALYMPH) 0.9 K/cumm 0.5-4.6 [place] Abs (test code=AMONO) 0.5 K/cumm 0.0-1.2 Eos Abs (test code=AEOS) 0.04 K/cumm 0.00-0.74 Baso Abs (test code=ABASO) 0.0 K/cumm 0.00-0.21 Prothrombin [id number] 05:37:00* Test Item Value Reference Range Comments PT (test code=PT) 24.60 seconds 9.78-13.35 READ BACK LAB VALUESVERIFIED BY REPEAT TESTINGcalled to Airam Osuna RN 0535 05/18/2017. off coumadin. DD INR (test code=INR) 2.19 Ratio 0.6-1.2 CT HEAD OR BRAIN WO [id number] 21:25:49CT HEAD WITHOUT CONTRASTLOCATION CODE: [id number]: Status post fallTECHNIQUE: 1.25 mm noncontrast enhanced axial images of the brain wereobtained and reformatted into 5mm slices. Images were reviewed in softtissue, brain and bone windows.COMPARISON: CT head, 05/16/2017FINDINGS:Interval development of an area of heterogeneous low- attenuation at theinferior left cerebellum. Low attenuation is noted surrounding this areasuggestive of edema causing mass effect on the fourth ventricle and leftposterior stanley.No masses or extra-axial fluid collections are seen. The CSF- containingspaces are normal in size, shape and position. The visualized aspectsof the bony calvarium, paranasal sinuses, and globes are intact. A lar geright parietal soft tissue hematoma is noted.IMPRESSION:1. Heterogeneous area of low attenuation is noted in the left inferiorcerebellum not seen on the prior exam suggestive of an evolving ischemicinfarct. Consider further evaluation with brain MRI.2. Associated left cerebellar edema is noted causing mass effect on theposterior left stanley and fourth ventricle without evidence ofhydrocephalus.3. Again noted is a large right parietal soft tissue hematoma.Prothrombin Time 2017-05-17 07:43:00* Test Item Value Reference Range Comments PT (test code=PT) 34.50 seconds 9.78-13.35 VERIFIED BY REPEAT TESTING READ BACK LAB VALUESNO [facility]. GORDY TORRES05/17/2017 @ 0743KP INR (test code=INR) 3.09 Ratio 0.6-1.2 Partial Thromboplastin [id number] 07:43:00* Test Item Value Reference Range Comments aPTT (test code=PTT) 54.80 seconds 24.39-37.25 Basic Metabolic [id number] 22:02:00* Test Item Value Reference Range Comments Sodium (test code=NA) 132 mmol/L 135-145 Potassium (test code=K) 3.9 mmol/L 3.5-5.1 Chloride (test code=CL) 98 mmol/L 98-105 Carbon Dioxide (test code=CO2) 25 mmol/L 22-29 Glucose (test code=GLU) 121 mg/dL 70-115 Blood Urea Nitrogen (test code=BUN) 6 mg/dL 8-23 Creatinine (test code=CREAT) 0.9 mg/dL 0.5-0.9 Calcium (test code=CA) 8.3 mg/dL 8.3-10.5 BUN/Creatinine Ratio (test code=BCRATIO) 6.7 Anion Gap (test code=AGAP) 9 mmol/L 7-16 Estimated GFR (test code=GFR) >60 mL/min/1.73m2 eGFR (estimated Glomerular Filtration Rate) is an estimated value,calculated from the patient's serum creatinine using the MDRD equation.It is NOT the patient's actual GFR. The eGFR provides a more clinicallyuseful measure of kidney disease than serum creatinine alone.This calculation takes sex and race into account, if the informationis provided. If the race is not provided, and the patient isAfrican-Bangladeshi, multiply by 1.212. If sex is not provided, and thepatient is female, multiply by 0.742. Results for patients <18 years ofage have not been validated by the MDRD study and should be interpretedwith caution.eGFR Result Interpretation:eGFR > or=60 is in the Normal RangeeGFR < 60 may mean kidney diseaseeGFR < 15 may mean kidney failureRanges recommended by the National Kidney Foundat ion,http://nkdep.nih.gov Prothrombin [id number] 21:56:00* Test Item Value Reference Range Comments PT (test code=PT) 52.10 seconds 9.78-13.35 INR (test code=INR) 4.68 Ratio 0.6-1.2 Partial Thromboplastin [id number] 21:56:00* Test Item Value Reference Range Comments aPTT (test code=PTT) 57.60 seconds 24.39-37.25 CBC with [id number] 21:38:00* Test Item Value Reference Range Comments WBC (test code=WBC) 7.1 K/cumm 4.4-10.5 RBC (test code=RBC) 3.99 M/cumm 3.75-5.20 Hemoglobin (test code=HGB) 12.9 gm/dL 12.2-14.8 Hematocrit (test code=HCT) 37.9 % 36.5-44.4 MCV (test code=MCV) 94.9 fL 80-100 MCH (test code=MCH) 32.4 pg 27.0-32.5 MCHC (test code=MCHC) 34.2 g/dL 32.0-37.5 RDW (test code=RDW) 13.8 % 11.5-14.5 Platelet Count (test code=PLTCT) 187 K/cumm 140-440 MPV (test code=MPV) 8.4 fL Diff Method (test code=DIFFM) Auto Neutrophil (test code=NEUT) 79.6 % 36-70 Lymphocyte (test code=LYMPH) 14.6 % 12-44 Monocyte (test code=MONO) 4.1 % 0-11 Eosinophil (test code=EOS) 1.5 % 0-7 Basophil (test code=BASO) 0.1 % 0-2 Neutro Abs (test code=ANEUT) 5.6 K/cumm 1.6-7.4 Lymph Abs (test code=ALYMPH) 1.0 K/cumm 0.5-4.6 [place] Abs (test code=AMONO) 0.3 K/cumm 0.0-1.2 Eos Abs (test code=AEOS) 0.11 K/cumm 0.00-0.74 Baso Abs (test code=ABASO) 0.0 K/cumm 0.00-0.21 CT HEAD OR BRAIN WO [id number] 20:47:03CT SCAN OF THE HEAD WITHOUT CONTRASTLocation: [id number] HISTORY: Head injury patient fellTECHNIQUE: Helical CT was performed from the skull base to the vertexwithout IV contrast using 5mm slice thicknesses. Coronal and sagittalimages were reconstructed. Exam was performed on an up-to-date helicalCT scanner. Automatic exposure control and radiation dose reductiontechniques were utilized. Exam was performed within 24 hours of thepatient's arrival to the facility. Exam performed without IV contrasthas limited sensitivity for detection of mass or inflammatory change.DLP: 749 mGy*cmFINDINGS:The visualized sinuses are clear. The vi sualized bony structures arenormal. There is no evidence of mass, mass effect, fluid collection,hemorrhage, or evolving infarction. There is no evidence of ep idural,subdural, or intraparenchymal hematoma. There is a 5 cm in length x 2 cmi n thickness right posterior parietal subgaleal scalp hematoma. There isno underl leonard skull fracture or radiopaque foreign body.IMPRESSION:Focal right posterior parietal subgaleal scalp hematoma. Otherwiseunremarkable exam.Prothrombin Time 2017-05-16 08:33:00* Test Item Value Reference Range Comments PT (test code=PT) 54.80 seconds 9.78-13.35 READ BACK LAB VALUESVERIFIED BY REPEAT TESTINGcalled to Kelle Holguin RN at 0830 05/16/2017. held coumadin. DD INR (test code=INR) 4.93 Ratio 0.6-1.2 Prothrombin [id number] 07:38:00* Test Item Value Reference Range Comments PT (test code=PT) 34.10 seconds 9.78-13.35 VERIFIED BY REPEAT TESTING READ BACK LAB VALUESCOUMAMADDISON. GORDY JIMENEZ05/15/2017 @ 0737KP INR (test code=INR) 3.05 Ratio 0.6-1.2 50058&PELVIS W/[id number] 08:39:55CT ABDOMEN&PELVIS W/CONTRASTLOCATION: [id number]: Abdominal pain COMPARISON: Chest radiograph 05/12/2017TECHNIQUE: Axial images of the abdomen and pelvis were obtained withintravenous contrast. One or more of the following dose reduction techniques were used:Automated exposure control, adjustment of the mA and/or kV according topatient size, and/or utilization of iterative reconstruction technique.DISCUSSION:Lower thorax: Small bilateral pleural effusions are associated withbibasilar atelectasis. There is mild dependent consolidation in theright lower lobe. M edian sternotomy changes are partially visualized.The heart is enlarged with aor tic valve prosthesis.Hepatobiliary: Unremarkable. No biliary ductal dilatation. Gallbladder: Absent.Spleen: Unremarkable.Pancreas: Unremarkable.Adrenals: Unr emarkable.Kidneys/ureters: Small hypodense lesion in the left kidney is likely acyst.Pelvic organs/bladder: The uterus is absent. The bladder and adnexa aregr ossly unremarkable.Vessels: Aortoiliac calcific atherosclerosis.Lymph nodes: No lymphadenopathy.Peritoneum/retroperitoneum: No intraabdominal free air or free f luid.Bowel: No abnormal bowel wall thickening or evidence of obstruction. Theapp endix is normal. A moderate amount of colonic stool is present.Bones/soft tissue s: Posterior thoracolumbar fusion changes are noted.Looped hardware tanja may be f ractured. There are laminectomy changes hfE18-G2. Moderate to severe L1 vertebra l compression fracture isage-indeterminate. There are mild to moderate degenerat red changesthroughout the spine. 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 A sm allhernia sac along the defect (protruding into the left flank) contains ashort segment of descending/sigmoid colon.IMPRESSION:1. No acute abnormalities in the abdomen or pelvis.2. Moderate amount of colonic stool.3. Chronic, focal osseo us defect along the left iliac crest. Smallhernia sac along the defect (protrudi ng into the left flank) contains ashort segment of descending/sigmoid colon.4. Posterior thoracolumbar fusion changes with T12-L1 laminectomies asdescribed abo ve. Age indeterminate moderate to severe L1 vertebralcompression fracture.5. Sm all bilateral pleural effusions with bibasilar atelectasis. Milddependent consol idation in the right lower lobe.6. Cardiomegaly.Basic Metabolic [id number] 07:18:00* Test Item Value Reference Range Comments Sodium (test code=NA) 131 mmol/L 135-145 Potassium (test code=K) 4.4 mmol/L 3.5-5.1 Chloride (test code=CL) 98 mmol/L 98-105 Carbon Dioxide (test code=CO2) 24 mmol/L 22-29 Glucose (test code=GLU) 94 mg/dL 70-115 Blood Urea Nitrogen (test code=BUN) 9 mg/dL 8-23 Creatinine (test code=CREAT) 1.0 mg/dL 0.5-0.9 Calcium (test code=CA) 8.2 mg/dL 8.3-10.5 BUN/Creatinine Ratio (test code=BCRATIO) 9.0 Anion Gap (test code=AGAP) 9 mmol/L 7-16 Estimated GFR (test code=GFR) 59 mL/min/1.73m2 eGFR (estimated Glomerular Filtration Rate) is an estimated value,calculated from the patient's serum creatinine using the MDRD equation.It is NOT the patient's actual GFR. The eGFR provides a more clinicallyuseful measure of kidney disease than serum creatinine alone.This calculation takes sex and race into account, if the informationis provided. If the race is not provided, and the patient isAfrican-Bangladeshi, multiply by 1.212. If sex is not provided, and thepatient is female, multiply by 0.742. Results for patients <18 years ofage have not been validated by the MDRD study and should be interpretedwith caution.eGFR Result Interpretation:eGFR > or=60 is in the Normal RangeeGFR < 60 may mean kidney diseaseeGFR < 15 may mean kidney failureRanges recommended by the National Kidney Foundat ion,http://nkdep.nih.gov Prothrombin [id number] 06:59:00* Test Item Value Reference Range Comments PT (test code=PT) 18.30 seconds 9.78-13.35 INR (test code=INR) 1.61 Ratio 0.6-1.2 Prothrombin [id number] 06:55:00* Test Item Value Reference Range Comments PT (test code=PT) 15.30 seconds 9.78-13.35 INR (test code=INR) 1.36 Ratio 0.6-1.2 XR CHEST 1 [id number] 15:06:44LOCATION: [id number] 1 VIEWINDICATION: Shortness of breath .Comparison: Chest radiograph dated 05/09/2017FINDINGS: Mild cardiomegaly is redemonstrated. There is residual mild centralvascular congestion. There is significant interval clearing ofpreviously seen bilateral pulmonary infiltrates. No evidence ofplacental thorax.Sternal wires and cardiac valve prosthesis are again noted.Spine fusion hardware is seen as well, partially fractured at the X5kdslj.IMPRESSION:1. Stable mild cardiomegaly.2. Interval interval clearing of bilateral infiltrates since 05/09/2017exam.POC Glucose, [id number] 08:01:00* Test Item Value Reference Range Comments POC Glucose (test code=POCGLUC) 87 mg/dL 70-115 If you consider your patient critically ill, the [place] Accu-Chek InformII metershould not be used for Glucose determinations.Draw a venous Glucose and send to the Main Lab for Analysis. Prothrombin [id number] 07:21:00* Test Item Value Reference Range Comments PT (test code=PT) 13.70 seconds 9.78-13.35 [facility] GORDY PATEL 0720 RESULTS VERIFEID NO EXPLAN Fredy GARCIA 05/12/17 INR (test code=INR) 1.20 Ratio 0.6-1.2 [facility] GORDY PATEL 0720 RESULTS VERIFEID NO EXPLAN Fredy GARCIA 05/12/17 POC Glucose, [id number] 07:00:00* Test Item Value Reference Range Comments POC Glucose (test code=POCGLUC) 89 mg/dL 70-115 Notify RN or MDIf you consider your patient critically ill, the [place] Accu-Chek InformII metershould not be used for Glucose determinations.Draw a venous Glucose and send to the Main Lab for Analysis. Magnesium, [id number] 06:20:00* Test Item Value Reference Range Comments Magnesium (test code=MG) 2.0 mg/dL 1.7-2.5 Basic Metabolic [id number] 06:20:00* Test Item Value Reference Range Comments Sodium (test code=NA) 137 mmol/L 135-145 Potassium (test code=K) 4.7 mmol/L 3.5-5.1 Chloride (test code=CL) 126 mmol/L 98-105 Carbon Dioxide (test code=CO2) 24 mmol/L 22-29 Glucose (test code=GLU) 101 mg/dL 70-115 Blood Urea Nitrogen (test code=BUN) 19 mg/dL 8-23 Creatinine (test code=CREAT) 1.1 mg/dL 0.5-0.9 Calcium (test code=CA) 8.4 mg/dL 8.3-10.5 BUN/Creatinine Ratio (test code=BCRATIO) 17.3 Anion Gap (test code=AGAP) -13 mmol/L 7-16 Estimated GFR (test code=GFR) 53 mL/min/1.73m2 eGFR (estimated Glomerular Filtration Rate) is an estimated value,calculated from the patient's serum creatinine using the MDRD equation.It is NOT the patient's actual GFR. The eGFR provides a more clinicallyuseful measure of kidney disease than serum creatinine alone.This calculation takes sex and race into account, if the informationis provided. If the race is not provided, and the patient isAfrican-Bangladeshi, multiply by 1.212. If sex is not provided, and thepatient is female, multiply by 0.742. Results for patients <18 years ofage have not been validated by the MDRD study and should be interpretedwith caution.eGFR Result Interpretation:eGFR > or=60 is in the Normal RangeeGFR < 60 may mean kidney diseaseeGFR < 15 may mean kidney failureRanges recommended by the National Kidney Foundat ion,http://nkdep.nih.gov CBC with [id number] 05:53:00* Test Item Value Reference Range Comments WBC (test code=WBC) 6.5 K/cumm 4.4-10.5 RBC (test code=RBC) 3.84 M/cumm 3.75-5.20 Hemoglobin (test code=HGB) 12.1 gm/dL 12.2-14.8 Hematocrit (test code=HCT) 35.9 % 36.5-44.4 MCV (test code=MCV) 93.5 fL 80-100 MCH (test code=MCH) 31.6 pg 27.0-32.5 MCHC (test code=MCHC) 33.8 g/dL 32.0-37.5 RDW (test code=RDW) 13.5 % 11.5-14.5 Platelet Count (test code=PLTCT) 167 K/cumm 140-440 MPV (test code=MPV) 9.6 fL Diff Method (test code=DIFFM) Auto Neutrophil (test code=NEUT) 71.1 % 36-70 Lymphocyte (test code=LYMPH) 19.2 % 12-44 Monocyte (test code=MONO) 4.7 % 0-11 Eosinophil (test code=EOS) 4.7 % 0-7 Basophil (test code=BASO) 0.4 % 0-2 Neutro Abs (test code=ANEUT) 4.6 K/cumm 1.6-7.4 Lymph Abs (test code=ALYMPH) 1.3 K/cumm 0.5-4.6 [place] Abs (test code=AMONO) 0.3 K/cumm 0.0-1.2 Eos Abs (test code=AEOS) 0.30 K/cumm 0.00-0.74 Baso Abs (test code=ABASO) 0.0 K/cumm 0.00-0.21 POC Glucose, [id number] 22:28:00* Test Item Value Reference Range Comments POC Glucose (test code=POCGLUC) 95 mg/dL 70-115 If you consider your patient critically ill, the [place] Accu-Chek InformII metershould not be used for Glucose determinations.Draw a venous Glucose and send to the Main Lab for Analysis. Magnesium, [id number] 05:54:00* Test Item Value Reference Range Comments Magnesium (test code=MG) 2.0 mg/dL 1.7-2.5 Basic Metabolic [id number] 05:54:00* Test Item Value Reference Range Comments Sodium (test code=NA) 135 mmol/L 135-145 Potassium (test code=K) 4.2 mmol/L 3.5-5.1 Chloride (test code=CL) 98 mmol/L 98-105 Carbon Dioxide (test code=CO2) 22 mmol/L 22-29 Glucose (test code=GLU) 105 mg/dL 70-115 Blood Urea Nitrogen (test code=BUN) 24 mg/dL 8-23 Creatinine (test code=CREAT) 1.1 mg/dL 0.5-0.9 Calcium (test code=CA) 8.8 mg/dL 8.3-10.5 BUN/Creatinine Ratio (test code=BCRATIO) 21.8 Anion Gap (test code=AGAP) 15 mmol/L 7-16 Estimated GFR (test code=GFR) 53 mL/min/1.73m2 eGFR (estimated Glomerular Filtration Rate) is an estimated value,calculated from the patient's serum creatinine using the MDRD equation.It is NOT the patient's actual GFR. The eGFR provides a more clinicallyuseful measure of kidney disease than serum creatinine alone.This calculation takes sex and race into account, if the informationis provided. If the race is not provided, and the patient isAfrican-Bangladeshi, multiply by 1.212. If sex is not provided, and thepatient is female, multiply by 0.742. Results for patients <18 years ofage have not been validated by the MDRD study and should be interpretedwith caution.eGFR Result Interpretation:eGFR > or=60 is in the Normal RangeeGFR < 60 may mean kidney diseaseeGFR < 15 may mean kidney failureRanges recommended by the National Kidney Foundat ion,http://nkdep.nih.gov CBC with [id number] 05:15:00* Test Item Value Reference Range Comments WBC (test code=WBC) 5.2 K/cumm 4.4-10.5 RBC (test code=RBC) 3.94 M/cumm 3.75-5.20 Hemoglobin (test code=HGB) 12.5 gm/dL 12.2-14.8 Hematocrit (test code=HCT) 38.9 % 36.5-44.4 MCV (test code=MCV) 98.8 fL 80-100 MCH (test code=MCH) 31.9 pg 27.0-32.5 MCHC (test code=MCHC) 32.2 g/dL 32.0-37.5 RDW (test code=RDW) 13.6 % 11.5-14.5 Platelet Count (test code=PLTCT) 171 K/cumm 140-440 MPV (test code=MPV) 9.4 fL Diff Method (test code=DIFFM) Auto Neutrophil (test code=NEUT) 59.7 % 36-70 Lymphocyte (test code=LYMPH) 29.8 % 12-44 Monocyte (test code=MONO) 4.6 % 0-11 Eosinophil (test code=EOS) 5.4 % 0-7 Basophil (test code=BASO) 0.5 % 0-2 Neutro Abs (test code=ANEUT) 3.1 K/cumm 1.6-7.4 Lymph Abs (test code=ALYMPH) 1.6 K/cumm 0.5-4.6 [place] Abs (test code=AMONO) 0.2 K/cumm 0.0-1.2 Eos Abs (test code=AEOS) 0.28 K/cumm 0.00-0.74 Baso Abs (test code=ABASO) 0.0 K/cumm 0.00-0.21 Urinalysis [id number] 21:31:00* Test Item Value Reference Range Comments Color (test code=COLOR) Straw Yellow,Straw,Pl yellow Clarity (test code=CLAR) Clear Clear Specific [place] (test code=SPGR) 1.004 1.001-1.035 pH (test code=PH) 5.0 5.0-9.0 Ketone (test code=KET) Negative mg/dL Negative Glucose (test code=GLUCUR) Negative mg/dL Negative Protein (test code=PROT) Negative mg/dL Negative Bilirubin (test code=BILI) Negative mg/dL Negative Occult Blood (test code=UDOB) Negative Negative Urobilinogen (test code=UROB) 0.2 mg/dL 0.2-1.0 Nitrite (test code=NIT) Negative Negative Leuk Esterase (test code=LEUK) Negative Negative Micros Exam (test code=MEXAM) Not indicated Prothrombin [id number] 14:16:00* Test Item Value Reference Range Comments PT (test code=PT) 28.30 seconds 9.78-13.35 INR (test code=INR) 2.51 Ratio 0.6-1.2 Partial Thromboplastin [id number] 14:16:00* Test Item Value Reference Range Comments aPTT (test code=PTT) 42.50 seconds 24.39-37.25 CK [id number] 14:14:00* Test Item Value Reference Range Comments CK (test code=CK) n/a U/L 26-192 CKMB (test code=CKMB) 2.8 ng/mL 0.0-2.8 CKMB% (test code=CKMBP) 0.0 % 0.0-3.4 [id number] 14:12:00* Test Item Value Reference Range Comments Lipase (test code=LIP) 38 U/L 13-60 Troponin [id number] 14:12:00* Test Item Value Reference Range Comments Troponin T (test code=ARIANA) <0.010 ng/mL 0.000-0.090 [id number] 14:12:00* Test Item Value Reference Range Comments NT ProBnp (test code=PBNP) 7394 pg/mL 0-124 Comprehensive Metabolic [id number] 14:12:00* Test Item Value Reference Range Comments Sodium (test code=NA) 137 mmol/L 135-145 Potassium (test code=K) 4.6 mmol/L 3.5-5.1 Chloride (test code=CL) 102 mmol/L 98-105 Carbon Dioxide (test code=CO2) 25 mmol/L 22-29 Glucose (test code=GLU) 91 mg/dL 70-115 Blood Urea Nitrogen (test code=BUN) 25 mg/dL 8-23 Creatinine (test code=CREAT) 1.0 mg/dL 0.5-0.9 Calcium (test code=CA) 8.8 mg/dL 8.3-10.5 Prot Total (test code=TP) 6.3 g/dL 6.4-8.3 Albumin (test code=ALB) 4.0 g/dL 3.5-5.2 A/G Ratio (test code=AGRATIO) 1.7 Ratio Globulin (test code=GLOB) 2.3 2.9-3.1 Bili Total (test code=TBIL) 0.6 mg/dL 0.1-0.9 Alk Phos (test code=APHOS) 96 U/L 35-104 AST (test code=AST) 58 U/L 1-32 ALT (test code=ALT) 65 U/L 1-33 BUN/Creatinine Ratio (test code=BCRATIO) 25.0 Anion Gap (test code=AGAP) 10 mmol/L 7-16 Estimated GFR (test code=GFR) 59 mL/min/1.73m2 eGFR (estimated Glomerular Filtration Rate) is an estimated value,calculated from the patient's serum creatinine using the MDRD equation.It is NOT the patient's actual GFR. The eGFR provides a more clinicallyuseful measure of kidney disease than serum creatinine alone.This calculation takes sex and race into account, if the informationis provided. If the race is not provided, and the patient isAfrican-Bangladeshi, multiply by 1.212. If sex is not provided, and thepatient is female, multiply by 0.742. Results for patients <18 years ofage have not been validated by the MDRD study and should be interpretedwith caution.eGFR Result Interpretation:eGFR > or=60 is in the Normal RangeeGFR < 60 may mean kidney diseaseeGFR < 15 may mean kidney failureRanges recommended by the National Kidney Foundat ion,http://nkdep.nih.gov CBC with [id number] 14:04:00* Test Item Value Reference Range Comments WBC (test code=WBC) 5.7 K/cumm 4.4-10.5 RBC (test code=RBC) 3.74 M/cumm 3.75-5.20 Hemoglobin (test code=HGB) 12.9 gm/dL 12.2-14.8 Hematocrit (test code=HCT) 35.4 % 36.5-44.4 MCV (test code=MCV) 94.5 fL 80-100 MCH (test code=MCH) 34.5 pg 27.0-32.5 MCHC (test code=MCHC) 36.5 g/dL 32.0-37.5 RDW (test code=RDW) 13.6 % 11.5-14.5 Platelet Count (test code=PLTCT) 161 K/cumm 140-440 MPV (test code=MPV) 9.3 fL Diff Method (test code=DIFFM) Auto Neutrophil (test code=NEUT) 73.6 % 36-70 Lymphocyte (test code=LYMPH) 18.8 % 12-44 Monocyte (test code=MONO) 4.5 % 0-11 Eosinophil (test code=EOS) 2.5 % 0-7 Basophil (test code=BASO) 0.6 % 0-2 Neutro Abs (test code=ANEUT) 4.2 K/cumm 1.6-7.4 Lymph Abs (test code=ALYMPH) 1.1 K/cumm 0.5-4.6 [place] Abs (test code=AMONO) 0.3 K/cumm 0.0-1.2 Eos Abs (test code=AEOS) 0.14 K/cumm 0.00-0.74 Baso Abs (test code=ABASO) 0.0 K/cumm 0.00-0.21 XR CHEST 1 [id number] 13:10:30EXAM: CHEST ONE VIEWINDICATION: PalpitationsCOMPARISON: None availableTECHNIQUE: AP view of the chest.FINDINGS: The cardiomediastinal silhouette is enlarged. There is evidence of priorthoracic surgery. There are congestive changes noted throughout bothlungs. No pneumothorax or pleural effusion is identified. The osseousstructures are unremarkable.IMPRESSION: Cardiomegaly with congestive changes noted throughout both lungs.LOCATION: R16
--- NOTE | 2018-12-23 17:11 | NUR ---
PATIENT IN TREATMENT ROOM. EVALUATED BY DR. TRAN
[2018-12-23] MEDS ORDERED: METHYLPREDNISOLONE SOD SUCC 125 MG/2ML VIAL IV ONE (18:15)
[2018-12-23] MEDS ORDERED: DIPHENHYDRAMINE HCL INJ 50 MG/ML VIAL IV ONE (18:15)
--- NOTE | 2018-12-23 18:53 | NUR ---
PATIENT ALLERGIC TO SHRIMP, CAUSING HAND REDNESS, VOMITING AND ABDOMINAL PAIN. DR. TRAN ORDERED BENADRYL AND SOLUMEDROL
[2018-12-23 19:08] LABS: BASOPHILS # (AUTO) 0.1 (0.0-0.1); BASOPHILS % 0.5 % (0.0-1.0); EOSINOPHILS # (AUTO) 0.1 (0.0-0.4); EOSINOPHILS % 1.4 % (0.0-6.0); HEMATOCRIT 40.9 % (34.2-44.1); HEMOGLOBIN 13.7 g/dL (12.0-16.0); LYMPHOCYTES # (AUTO) 3.2 (1.0-3.2); LYMPHOCYTES % 31.4 % (18.0-39.1); MEAN CORPUSCULAR HEMOGLOBIN 31.4 pg (28-32); MEAN CORPUSCULAR HGB CONC 33.5 g/dL (31-35); MEAN CORPUSCULAR VOLUME 93.8 fL (81-99); MONOCYTES # (AUTO) 0.8 (0.2-0.8); MONOCYTES % 7.6 % (4.4-11.3); NEUTROPHILS % 58.7 % (38.7-80.0); PLATELET COUNT 296 x10e3/uL (140-360); RED BLOOD COUNT 4.36 x10e6/uL (3.6-5.1); RED CELL DISTRIBUTION WIDTH 12.9 % (11.7-14.4)
[2018-12-23] MEDS ORDERED: DIATRIZOATE MEGL/DIATRIZOA SOD 30 ML BTL PO ONE (19:24)
[2018-12-23 19:26] LABS: ALANINE AMINOTRANSFERASE 28 IU/L (0-55); ALBUMIN 4.1 g/dL (3.5-5.0); ALKALINE PHOSPHATASE 91 IU/L (40-150); AMYLASE 91 U/L (25-125); BLOOD UREA NITROGEN 19 mg/dL (7-26); BUN/CREATININE RATIO 22 (6-25); CALCIUM 10.4 mg/dL (8.4-10.2); CARBON DIOXIDE 24 mmol/L (22-29); CHLORIDE 103 mmol/L (98-107); CREATININE, SERUM 0.86 mg/dL (0.57-1.11); EST GLOMERULAR FILTRATION RATE > 60 ML/MIN (60-); GLUCOSE 97 mg/dL (74-118); LIPASE 7 U/L (8-78); SODIUM 139 mmol/L (136-145)
--- NOTE | 2018-12-23 20:33 | Diagnostic Imaging Report ---
EXAM: CT Abdomen and Pelvis WITH contrast INDICATION: ^SEVERE GENERALIZED ABD PAIN COMPARISON: None. TECHNIQUE: Abdomen and pelvis were scanned utilizing a multidetector helical scanner from the lung base to the pubic symphysis after administration of IV contrast. Coronal and sagittal reformations were obtained. Routine protocol was performed. Scan was performed when during portal venous phase. IV CONTRAST: 100 mL of Isovue 370 ORAL CONTRAST: Gastrografin COMPLICATIONS: None RADIATION DOSE: Total DLP: 492.02 mGy*cm Estimated effective dose: (DLP x 0.015 x size factor) mSv CTDIvol has been reviewed. It is below the limits set by the Radiation Protocol Committee (RPC). Dose modulation, iterative reconstruction, and/or weight based adjustment of the mA/kV was utilized to reduce the radiation dose to as low as reasonably achievable. FINDINGS: LINES and TUBES: None. LOWER THORAX: Fibrotic changes in the lung bases. Mild honeycombing and subpleural reticulation in both lower lobes. Surgical margin along the medial right lower lobe (series 2, image 2). 10.7 mm enhancing lesion in the right lower lobe abutting the surgical margin (series 2, image 3). 6.8 mm pleural-based nodularity in the right lower lobe (series 2, image 12). HEPATOBILIARY: The liver is diffuse hypodense compared to the spleen, consistent with diffuse hepatic diffuse hepatic steatosis. No focal hepatic lesions. No biliary ductal dilation. GALLBLADDER: There are cholecystectomy clips. SPLEEN: No splenomegaly. PANCREAS: There is fatty infiltration of the pancreas. ADRENALS: No adrenal nodules KIDNEYS/URETERS: Kidneys enhance symmetrically. No hydronephrosis. No stones. * 1.6 cm exophytic lesion in the posterior interpolar region of the right kidney with density measuring 76 Hounsfield units (series 2, image 29). * 0.9 cm hypodense lesion in the posterior interpolar region of the right kidney (image 29). * 1.0 cm cystic lesion in the inferior pole of the right kidney with density measuring 35 Hounsfield units. (Series 2, image 38). * 1.0 cm hypodense lesion superior pole left kidney (image 26) * 1.1 cm hypodense lesion in the inferior pole of the left kidney with density measuring 26 HU. (Image 38). GI TRACT: Tiny sliding hiatal hernia. No abnormal distention, wall thickening, or evidence of bowel obstruction. Appendix is normal. PELVIC ORGANS/BLADDER: Mild pelvic floor prolapse. LYMPH NODES: No lymphadenopathy. VESSELS: There is mild atherosclerotic disease in the aorta and major arterial branches. PERITONEUM / RETROPERITONEUM: No free air or fluid. BONES: Unremarkable. SOFT TISSUES: Unremarkable. IMPRESSION: 1. Diffuse hepatic steatosis. 2. No acute bowel pathology. 3. Severe fatty infiltration of the pancreas. 4. Multiple cystic lesions in the kidneys. There is however a 1.6 cm right renal mass. Recommend additional evaluation with CT or MR abdomen without and with contrast renal mass protocol for further evaluation. 5. Several pulmonary nodules. There appears to be a wedge resection in the right lower lobe. There is an associated 1.1 cm enhancing nodule at the margin of the surgical resection. Correlate with appropriate surgical history. Signed by: Dr. Chaz Skaggs M.D. on 12/23/2018 8:30 PM
[2018-12-23] MEDS ORDERED: MORPHINE SULFATE INJ 4 MG/ML INJ 1ML IV PRN (22:00)
[2018-12-23 22:23] LABS: CLARITY,URINE CLEAR (CLEAR); COLOR,URINE YELLOW (YELLOW); LEUKOCYTE ESTERASE ,URINE NEGATIVE (NEGATIVE); NITRITE,URINE NEGATIVE (NEGATIVE)
[2018-12-23 22:24] LABS: BILIRUBIN,URINE NEGATIVE (NEGATIVE); KETONES,URINE NEGATIVE (NEGATIVE); PROTEIN,URINE DIPSTICK NEGATIVE (NEGATIVE); URINE UROBILINOGEN 0.2 mg/dL (0.2 - 1)
[2018-12-23 22:25] LABS: BACTERIA,URINE FEW /HPF; EPITHELIAL CELLS,URINE MODERATE /LPF; WBC,URINE (MAN) 0-5 /HPF (0-5)
[2018-12-23] MEDS ORDERED: SODIUM CHLORIDE 0.9% 50ML 50 ML ONE (22:48)
[2018-12-23] MEDS ORDERED: IOPAMIDOL 370 MG/ML 200 ML INFUS..BTL INJ ONE (22:48)
[2018-12-23] MEDS ORDERED: AMLODIPINE BESYL5 MG PO (22:55)
[2018-12-23] MEDS ORDERED: REGLAN10 MG PO (22:55)
--- NOTE | 2018-12-23 23:10 | NUR ---
Pt admitted to rm 291 via stretcher. Alert and orient to name, place, time, and situation. "I have vomited four times after I come to hospital". Dx: abdominal pain and vomiting. VSS. Denies pain at this time. c/o nausea. Abdomen firm, distended and tender to touch. Last BM 12/23/18, loose stools d/t Golytely bowel prep. Pt is NPO, EGD and Colonoscopy in AM. Macy to room. Call ibrahim within reach. Bed low and locked. Bed alarm on. Will continue to monitor.
--- NOTE | 2018-12-23 23:50 | NUR ---
Call jessica Le for Dr. Nash for Pt c/o SOB. Pt states she takes DuoNeb every [address] Brown order to continue DuoNeb prn every 6 hours. Pt resp even and labored, RR18. O2 sat 97% on RA. No distress noted. Call RT for neb treatment. Will continue to monitor. Call ibrahim within reach.
[2018-12-23 23:58] VITALS: BP 139/67
[2018-12-24] VITALS (7 sets, daily range): BP systolic 115–149; BP diastolic 56–79
[2018-12-24] MEDS: ONDANSETRON HCL INJ 2MG/ML 2ML 2 MG/ML VIAL IV PRN ×3 (00:30→19:45)
[2018-12-24] MEDS: SODIUM CHLORIDE 0.9% 1000ML 1,000 ML IV SCH ×2 (00:30→19:58)
[2018-12-24] MEDS: ALBUTEROL/IPRATROPIUM 3 ML NEB NEB PRN ×2 (01:22→19:50)
--- NOTE | 2018-12-24 05:19 | NUR ---
Pt c/o recent bilateral hands nail clubbing, painless.
[2018-12-24 05:33] LABS: BASOPHILS % 0.1 % (0.0-1.0); HEMATOCRIT 38.1 % (34.2-44.1); HEMOGLOBIN 12.6 g/dL (12.0-16.0); LYMPHOCYTES # (AUTO) 1.1 (1.0-3.2); LYMPHOCYTES % 9.4 % (18.0-39.1); MEAN CORPUSCULAR HEMOGLOBIN 31.3 pg (28-32); MEAN CORPUSCULAR HGB CONC 33.1 g/dL (31-35); MEAN CORPUSCULAR VOLUME 94.5 fL (81-99); MONOCYTES # (AUTO) 0.1 (0.2-0.8); MONOCYTES % 0.6 % (4.4-11.3); NEUTROPHILS # (AUTO) 10.5 (2.1-6.9); NEUTROPHILS % 89.1 % (38.7-80.0); PLATELET COUNT 287 x10e3/uL (140-360); RED BLOOD COUNT 4.03 x10e6/uL (3.6-5.1); RED CELL DISTRIBUTION WIDTH 12.9 % (11.7-14.4)
[2018-12-24 05:57] LABS: ALANINE AMINOTRANSFERASE 28 IU/L (0-55); ALBUMIN 3.5 g/dL (3.5-5.0); ALBUMIN/GLOBULIN RATIO 0.9 (0.8-2.0); ALKALINE PHOSPHATASE 80 IU/L (40-150); BLOOD UREA NITROGEN 15 mg/dL (7-26); BUN/CREATININE RATIO 18 (6-25); CALCIUM 9.5 mg/dL (8.4-10.2); CARBON DIOXIDE 23 mmol/L (22-29); CHLORIDE 105 mmol/L (98-107); CREATININE, SERUM 0.85 mg/dL (0.57-1.11); EST GLOMERULAR FILTRATION RATE > 60 ML/MIN (60-); GLUCOSE 174 mg/dL (74-118); SODIUM 138 mmol/L (136-145)
--- NOTE | 2018-12-24 06:55 | NUR ---
Pt alert and orient. Lying in bed HOB 30 degrees. Denies pain. No distress noted. Report given to morning nurse.
--- NOTE | 2018-12-24 07:30 | NUR ---
RECEIVED PT AAOX3, PT NPO FOR EGD AND COLONOSCOPY. COLYTE AT BEDSIDE FOR PT TO DRINK. CONSENT IS SIGNED. IV IS DRY AND INTACT TO R AC. PT ON NS FLUIDS. NO S/S OF DISTRESS. BED IN LOWEST POSITION, SIDE RAILS UPX2, AND CALL RAPHAEL WITHIN REACH.
--- NOTE | 2018-12-24 15:23 | NUR ---
PT TAKEN DOWN FOR EGD AND COLONOSCOPY.
[2018-12-24] MEDS ORDERED: FENTANYL CITRATE/PF 100MCG/2 ML INJ ONE ×2 (17:17→18:10)
--- NOTE | 2018-12-24 17:25 | NUR ---
PATIENT RETURNED FROM COLONOSCOPY AND EGD PROCEDURE. ASSESSED PT VITAL SIGNS. NO S/S OF DISTRESS. NAUSEA MEDICINE GIVEN DOWNSTAIRS IN RECOVERY ROOM PER RECOVERY NURSE. SIDE RAILS UP X2, BED IN LOWEST POSITION, AND CALL RAPHAEL WITHIN REACH.
[2018-12-24] MEDS ORDERED: PROPOFOL IV EMULSION 10 MG/ML 20 ML VIAL ONE (18:03)
[2018-12-24] MEDS ORDERED: MIDAZOLAM HCL 2 MG/2 ML VIAL ONE (18:10)
--- NOTE | 2018-12-24 18:55 | NUR ---
BEDSIDE SHIFT REPORT GIVEN, RECEIVED PT SITTING ON SIDE OF BED. AAOX3, RR EVEN AND NON-LABORED, ON RA. PT REPORTS ABDOMINAL PAIN AT THIS TIME. LEFT PT SITTING ON SIDE OF BED, BED IN LOW LOCKED POSITION, SIDE RAILS UPX2, CALL LIGHT AND PHONE WITHIN REACH.
--- NOTE | 2018-12-24 19:18 | NUR ---
RECEIVED IN REPORT THAT MD MANRIQUE HAS APPROVED THE PT TO BE DISCHARGED. PENDING ATTENDING KATIA APPROVAL OF DISCHARGE. REVIEW OF ORDERS NOTED THAT MD MONTALVO, THE CURRENT ATTENDING, ORDER WAS CANCELLED AND AN ADMIT TO MD MANRIQUE ORDER PLACED. NOTIFIED ADMITTING. PAGE PLACED FOR MD MANRIQUE TO DISCUSS. MESSAGE LEFT WAITING FOR CALLBACK.
--- NOTE | 2018-12-24 20:14 | NUR ---
SPOKE WITH MD MANRIQUE CONCERNING PT DISCHARGE. NEW ORDERS RECEIVED.
--- NOTE | 2018-12-24 20:40 | NUR ---
VITALS OBTAINED, PATIENT A&OX4, STABLE CONDITION AT TIME OF DISCHARGE,
--- NOTE | 2018-12-24 20:45 | NUR ---
20G IV REMOVED FROM RIGHT AC, CATH INTACT AT TIME OF REMOVAL
--- NOTE | 2018-12-24 22:56 | Consultation ---
DATE OF CONSULTATION: 12/24/2018 HISTORY OF PRESENT ILLNESS: Ms. is a known patient to me from office visits. We have seen her for colon cancer screening, abdominal pain, passing black color stool, dyspepsia, and dysphagia. She was scheduled to have upper and lower endoscopy as an outpatient. When she called my office complaining severe excruciating abdominal pain and was advised to come to the emergency room. In the emergency room, she showed up, was complained of abdominal pain, nausea, and vomiting. The ER physician did workup including blood count and CT scan of the abdomen were unremarkable. The patient was admitted for overnight observation and to perform her endoscopy and then we will send her home. In addition to the above complaint, she complained of acid reflux. She has not had endoscopy prior to that. She noted she had colon cancer screening. Pertinent past medical history is family history of stomach cancer, risk factor for peptic ulcer disease includes nicotine and corticosteroid use. MEDICATIONS: Include vitamin D, iron, mirtazapine, levothyroxine, omeprazole, tramadol. She is not on blood thinner. PAST MEDICAL HISTORY: She had a biopsy of the right lung with pneumothorax, subsequently had history of hyperlipidemia, hypothyroidism, chronic back pain. PAST SURGICAL HISTORY: She had herniated disk repair, cholecystectomy, umbilical hernia repair, hysterectomy, left heart catheterization, no stents placed, right shoulder surgery. FAMILY HISTORY: Father had pulmonary fibrosis. Mother had cancer of the liver and stomach. SOCIAL HISTORY: She is retired. She has 5 kids. She is not . She is an ex-smoker and does not drink. ALLERGIES: TO ADVIL, CODEINE, AND TYLENOL. PHYSICAL EXAMINATION: GENERAL: She is awake, alert, oriented. Hemodynamically stable. Afebrile. HEENT: Normal sclerae. NECK: Supple. No node or mass. LUNGS: Clear to auscultation. HEART: Irregularly irregular rhythm. No murmur. No pedal edema. ABDOMEN: Obese, mildly distended. Bowel sounds present. Mildly tender in the epigastrium. No masses or organomegaly. IMPRESSION: The patient will have workup for her nausea, vomiting, abdominal discomfort. We will go ahead and continue her bowel cleaning and schedule for upper and lower endoscopy. Rukan MD PILY Ott/LANA /[id number]
== END 2018-12-24 20:00 | disposition home or self-care (01) ==
LOC: ER 16:06 → ERHOLD 22:13 → MED/SURG3 23:21
PROVIDERS: ADMIT Internal Medicine Gastroenterology; ATTEND Internal Medicine Gastroenterology
DX: K29.70 Gastritis, unspecified, without bleeding (principal); D12.5 Benign neoplasm of sigmoid colon; K57.30 Diverticulosis of large intestine without perforation or abscess without bleeding; K64.8 Other hemorrhoids; K44.9 Diaphragmatic hernia without obstruction or gangrene; R13.10 Dysphagia, unspecified; R11.2 Nausea with vomiting, unspecified; I10 Essential (primary) hypertension; E07.9 Disorder of thyroid, unspecified; Z90.49 Acquired absence of other specified parts of digestive tract; Z88.6 Allergy status to analgesic agent; Z88.5 Allergy status to narcotic agent; Z91.013 Allergy to seafood; Z91.018 Allergy to other foods; Z82.49 Family history of ischemic heart disease and other diseases of the circulatory system; R19.7 Diarrhea, unspecified; R10.84 Generalized abdominal pain; Z80.0 Family history of malignant neoplasm of digestive organs; E78.5 Hyperlipidemia, unspecified; E03.9 Hypothyroidism, unspecified
CPT/HCPCS: 36415 ×2; 43239; 45380; 74177; 80053 ×2; 81001; 82150; 82948; 83605; 83690; 85025 ×2; 94640 ×2; 99284; G0378 ×2; J1200; J2250; J2270; J2405; J2704; J2930; J7030; Q9967; 45378

== ENCOUNTER → 2019-02-18 | Outpatient (CLI) | payer MEDICARE, OTHER ==
[~2019-02-18] MED LIST changes: +AMLODIPINE BESYL5 MG PO; +GADOBENATE DIMEGLUMINE 1 ML IV ONE; +REGLAN10 MG PO; +SODIUM CHLORIDE 0.9% 100 ML 100 ML ONE
[2019-02-18 10:58] LABS: BLOOD UREA NITROGEN 15 mg/dL (7-26); BUN/CREATININE RATIO 19 (6-25); CREATININE, SERUM 0.81 mg/dL (0.57-1.11); EST GLOMERULAR FILTRATION RATE > 60 ML/MIN (60-)
--- NOTE | 2019-02-20 09:59 | Diagnostic Imaging Report ---
EXAMINATION: MRI Abdomen with and without contrast. TECHNIQUE: Axial T1 nonfat sat in and out of phase, axial T2 fat sat, coronal T2 nonfat sat, axial DWI and ADC MR images of the abdomen were obtained before and after the administration of 13 cc of gadolinium. Axial T1 fat sat GRE dynamic images in precontrast, arterial, venous and delayed phases were obtained. 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 LIVER: The hepatic contour is normal.. Marked diffuse signal dropout of hepatic parenchyma on out of phase images, consistent with severe steatosis. No focal hepatic lesions. BILIARY: No ductal dilatation or filling defect. Cholecystectomy. PANCREAS: No mass or ductal dilatation. Marked fatty replacement of the pancreas. SPLEEN: No splenomegaly. ADRENALS: No nodules. KIDNEYS: Symmetrical renal enhancement, without hydronephrosis or perinephric stranding. Right: Cystic lesions as follows: * 1.5 x 1.3 cm T1 hyperintense, T2 hypointense, mostly exophytic lesion in the posterior interpolar region (series 4, image 44), which shows no enhancement on postcontrast images, consistent with a hemorrhagic cyst. * Adjacent 0.8 cm T1 hypointense, T2 hyperintense nonenhancing lesion (series 100, image 68) consistent with a simple cyst. * 1.1 cm T2 hyperintense, T1 hypointense nonenhancing lesion in the right inferior pole (series 6, image 30), consistent with a simple cyst. * Additional punctate T2 hyperintense nonenhancing lesions which are too small to characterize, but likely represent tiny cysts. Left: Cystic lesions as follows: * 1.1 x 1.0 cm T2 hyperintense, T1 hypointense, nonenhancing lesion in the superior pole, consistent with a simple cyst (series 6, image 20). * 1.1 cm mostly exophytic T1 hypointense, T2 mildly hyperintense, nonenhancing lesion in the inferior pole (series 6, image 29). * Additional punctate T2 hyperintense nonenhancing lesions which are too small to characterize but likely represent tiny cysts. PERITONEUM / RETROPERITONEUM: No upper abdominal free fluid. GI TRACT: Visualized bowel shows no dilation or obstruction. LYMPH NODES: No upper abdominal lymphadenopathy. VESSELS: The celiac trunk, superior and inferior mesenteric and bilateral renal arteries are patent. The portal, superior mesenteric and splenic veins are patent. No collateral circulation. BONES AND SOFT TISSUES: No abnormal bone marrow signal. No soft tissue abnormalities. IMPRESSION: 1. 1.5 cm right posterior interpolar renal hemorrhagic cyst. Bilateral simple cysts. No further follow-up is indicated. 2. Severe hepatic steatosis (calculated hepatic fat fraction 35.7%, hepatic fat percentage 34.4%). No focal lesions. 3. Marked fatty replacement of the pancreas. No focal lesions or ductal dilation. Signed by: Dr. Josep Toney M.D. on 02/20/2019 9:55 AM
== END ==
LOC: MRI 09:55
PROVIDERS: ATTEND Urology
DX: D41.00 Neoplasm of uncertain behavior of unspecified kidney (principal)
CPT/HCPCS: 36415; 74183; 82565; 84520; A9577

== ENCOUNTER 2019-03-19 12:49 | Emergency (ER) | payer MEDICARE, OTHER ==
[~2019-03-19] VITALS: Ht 144.8 cm; Wt 67.1 kg
[~2019-03-19 12:49] MED LIST changes: -GADOBENATE DIMEGLUMINE 1 ML IV ONE; -SODIUM CHLORIDE 0.9% 100 ML 100 ML ONE
--- OUTSIDE RECORDS SUMMARY | 2019-03-19 12:52 | XMS REPORT | Continuity of Care Document ---
Author Author [employer] Organization [employer] Address Unknown Phone Unavailable Care Team Providers Care Machine Dyer Name Role Phone [facility] [employer] Unavailable Unavailable Problems Problem Status Onset Date Classification Date Reported Comments Source ORDERING DR. ZELDA MARINELLI (#[id number] Active 10/31/2018 [facility] Abdominal pain Active Problem 12/25/2018 [facility] Vomiting Active Problem 12/25/2018 [facility] Medications Medication Details Route Status Patient Instructions Ordering Provider Order Date Source Gabapentin 400 Mg Capsule, 800 Mg Oral Twice A Day Active 12/23/2018 [facility] Amlodipine Besylate 5 Mg Tablet Daily as needed for Elevated Blood Pressure Active [facility] Hydrocortisone 10 Mg Tablet Twice A Day Active [facility] Levothyroxine Sodium 50 Mcg Tablet Daily Active [facility] Metoclopramide Hcl (Reglan) 10 Mg Tablet Twice A Day Active [facility] Mirtazapine 15 Mg Tab Bedtime as needed for Sleep Active [facility] Pantoprazole Sodium (Protonix) 40 Mg Tablet. Twice A Day Active [facility] Tramadol Hcl (Ultram) 50 Mg Tablet As Needed Active [facility] Allergies, Adverse Reactions, Alerts Substance Category Reaction Severity Reaction type Status Date Reported Comments Source Hydrocodone Severe Allergy to Substance Active 11/21/2018 [facility] Acetaminophen Severe Allergy to Substance Active 11/21/2018 [facility] Ibuprofen Severe Allergy to Substance Active 11/21/2018 [facility] CHICKEN Intermediate Allergy to Substance Active 11/21/2018 [facility] SEAFOOD Severe Allergy to Substance Active 11/21/2018 [facility] chicken derived Intermediate Allergy to Substance Active 12/23/2018 [facility] shellfish derived ALLERGIC TO SEAFOOD Severe Allergy to Substance Active 12/23/2018 [facility] Immunizations No Data Provided for This Section Results Order Name Results Value Reference Range Date Interpretation Comments Source Capillary blood glucose measurement by glucometer (mass/volume) 134 70 - 120 12/24/2018 [facility] Blood leukocytes automated count (number/volume) 11.72 4.8 - 10.8 12/24/2018 [facility] Blood erythrocytes automated count (number/volume) 4.03 3.6 - 5.1 12/24/2018 [facility] Blood hemoglobin measurement (moles/volume) 12.6 12.0 - 16.0 12/24/2018 [facility] Automated blood hematocrit (volume fraction) 38.1 34.2 - 44.1 12/24/2018 [facility] Automated erythrocyte mean corpuscular volume 94.5 81 - 99 12/24/2018 [facility] Automated erythrocyte mean corpuscular hemoglobin (mass per erythrocyte) 31.3 28 - 32 12/24/2018 [facility] Automated erythrocyte mean corpuscular hemoglobin concentration measurement (mass/volume) 33.1 31 - 35 12/24/2018 [facility] RDW BldCo-Rto 12.9 11.7 - 14.4 12/24/2018 [facility] Automated blood platelet count (count/volume) 287 140 - 360 12/24/2018 [facility] Automated blood segmented neutrophil count as percentage of total leukocytes 89.1 38.7 - 80.0 12/24/2018 [facility] Automated blood lymphocyte count as percentage ot total leukocytes 9.4 18.0 - 39.1 12/24/2018 [facility] Automated blood monocyte count as percentage of total leukocytes 0.6 4.4 - 11.3 12/24/2018 [facility] Automated blood eosinophil count as percentage of total leukocytes 0.0 0.0 - 6.0 12/24/2018 [facility] Automated blood basophil count as percentage of total leukocytes 0.1 0.0 - 1.0 12/24/2018 [facility] IM GRANULOCYTES % 0.8 0.0 - 1.0 12/24/2018 [facility] Automated blood neutrophil count 10.5 2.1 - 6.9 12/24/2018 [facility] Blood lymphocytes count (number/volume) 1.1 1.0 - 3.2 12/24/2018 [facility] Blood monocytes automated count (number/volume) 0.1 0.2 - 0.8 12/24/2018 [facility] Automated blood eosinophil count 0.0 0.0 - 0.4 12/24/2018 [facility] Automated blood basophil count (count/volume) 0.0 0.0 - 0.1 12/24/2018 [facility] Absolute Immature Granulocyte (auto 0.09 0 - 0.1 12/24/2018 [facility] Serum or plasma sodium measurement (moles/volume) 138 136 - 145 12/24/2018 [facility] Serum or plasma potassium measurement (moles/volume) 4.0 3.5 - 5.1 12/24/2018 [facility] Serum or plasma chloride measurement (moles/volume) 105 98 - 107 12/24/2018 [facility] Serum or plasma carbon dioxide, total measurement (moles/volume) 23 22 - 29 12/24/2018 [facility] Serum or plasma anion gap 14.0 8 - 16 12/24/2018 [facility] Serum or plasma urea nitrogen measurement (mass/volume) 15 7 - 26 12/24/2018 [facility] Serum or plasma creatinine measurement (mass/volume) 0.85 0.57 - 1.11 12/24/2018 [facility] Serum or plasma urea nitrogen/creatinine mass ratio 18 6 - 25 12/24/2018 [facility] Estimated glomerular filtration rate (GFR) determination > 60 60 12/24/2018 [facility] Glucose measurement 174 74 - 118 12/24/2018 [facility] Serum or plasma calcium measurement (mass/volume) 9.5 8.4 - 10.2 12/24/2018 [facility] Serum or plasma total bilirubin measurement (mass/volume) 0.3 0.2 - 1.2 12/24/2018 [facility] Aspartate Amino Transf (AST/SGOT) 25 5 - 34 12/24/2018 [facility] Serum or plasma alanine aminotransferase measurement (enzymatic activity/volume) 28 0 - 55 12/24/2018 [facility] Serum or plasma protein measurement (mass/volume) 7.3 6.5 - 8.1 12/24/2018 [facility] Serum or plasma albumin measurement (mass/volume) 3.5 3.5 - 5.0 12/24/2018 [facility] Plasma globulin measurement (mass/volume) 3.8 2.3 - 3.5 12/24/2018 [facility] Serum or plasma albumin/globulin mass ratio 0.9 0.8 - 2.0 12/24/2018 [facility] Serum or plasma alkaline phosphatase measurement (enzymatic activity/volume) 80 40 - 150 12/24/2018 [facility] Urine color determination YELLOW YELLOW 12/23/2018 [facility] Urine clarity CLEAR CLEAR 12/23/2018 [facility] Specific gravity of Urine by Test strip 1.005 1.010 - 1.025 12/23/2018 [facility] Urine pH measurement by automated test strip 6 5 - 7 12/23/2018 [facility] Urine leukocyte esterase detection by dipstick NEGATIVE NEGATIVE 12/23/2018 [facility] Urine nitrite detection NEGATIVE NEGATIVE 12/23/2018 [facility] Urine protein measurement by test strip (mass/volume) NEGATIVE NEGATIVE 12/23/2018 [facility] Urine glucose detection NEGATIVE NEGATIVE 12/23/2018 [facility] Urine ketones detection by automated test strip NEGATIVE NEGATIVE 12/23/2018 [facility] Urine urobilinogen measurement by test strip (mass/volume) 0.2 0.2 - 1 12/23/2018 [facility] Urine total bilirubin measurement (mass/volume) NEGATIVE NEGATIVE 12/23/2018 [facility] Urine erythrocytes detection TRACE NEGATIVE 12/23/2018 [facility] Automated urine sediment leukocyte count by microscopy (number/high power field) 0-5 0 - 5 12/23/2018 [facility] Erythrocytes detection in urine sediment by light microscopy 6-10 0 - 5 12/23/2018 [facility] Bacteria detection in urine sediment by light microscopy FEW NONE 12/23/2018 [facility] Epithelial cells detection in urine sediment by light microscopy MODERATE NONE 12/23/2018 [facility] Lactic Acid Level 14.8 4.5 - 19.8 12/23/2018 [facility] Serum or plasma amylase measurement (enzymatic activity/volume) 91 25 - 125 12/23/2018 [facility] Serum or plasma lipase measurement (enzymatic activity/volume) 7 8 - 78 12/23/2018 [facility] CHEM PANEL eGFR 91 11/07/2018 Result Comment: The eGFR is calculated [...] should be multiplied by the estimated BMI. [facility] CHEM PANEL POC Creatinine 0.7 0.5 - 1.4 11/07/2018 [facility] Pathology Reports No Data Provided for This Section Diagnostic Reports Report Value Date Source Abdomen/Pelvis w/wo IV contrast CT CT SCAN [...] hysterectomy. 5. Mild sigmoid descending diverticulosis. SL: [id number] 11/07/2018 [facility] Consultation Notes No Data Provided for This Section Discharge Summaries No Data Provided for This Section History and Physicals No Data Provided for This Section Vital Signs No Data Provided for This Section Encounters Location Location Details Encounter Type Encounter Number Reason For Visit Attending Provider ADM Date DC Date Status Source [facility] Outpatient [id number] Non Physician 11/07/2018 11/08/2018 [facility] Discharged Inpatient (obs) [id number] MADAI MANRIQUE MD 12/23/2018 12/24/2018 [facility] Procedures Procedure Code Date Perfomer Comments Source EGD with biopsy [id number] 12/24/2018 HILARIA [facility] Computed tomography of abdomen and pelvis with contrast [id number] 12/23/2018 [facility] Assessment and Plan No Data Provided for This Section Plan of Care Plan of Care Date Source Discharge Date 12/24/18 8:00pm Disposition HOME, SELF-CARE Instructions/Education Provided Abdominal Pain - Adult Colonoscopy Diabetes and Diet Prescriptions See Medication Section Referrals MADAI MANRIQUE MD (Gastroenterology) Order Date: 12/30/2018 Entered Date: 12/24/2018 8:18pm Address: [address] [place] [id number] Note: 12/30/2018 AT 09:20 AM Additional Instructions/Education DIABETIC DIET RESUME HOME MEDICATIONS TAKEN PRIOR TO HOSPITAL STAY Sunday12/25/[address] MANRIQUE OFFICE TO CONFIRM APPOINTMENT ON 12/30/2018. PL[address] CALL TO OFFICE AFTER 9 AM. 12/24/2018 [facility] Social History Social History Date Source Smoking Status Start Date Stop Date Former smoker 12/24/2018 [facility] No data available for this section 11/08/2018 [facility] Family History No Data Provided for This Section Advance Directives Order Name Results Value Date Source Advance Directives Advance Directives Directive Response Recorded Date/Time Does the patient have an advance directive? No 12/23/18 11:58pm Do you have a Directive to Physician? No 12/23/18 4:51pm Do you have a Medical Power of Welding Machine Operator Submerged Arc? No 12/23/18 4:51pm Do you have an out of hospital Do Not Resuscitate Order? No 12/23/18 4:51pm Do you have any special needs we should be aware of? No 12/23/18 4:51pm Do you have a support person here with you today? No 12/23/18 4:51pm Did patient receive Notice of Privacy Practices? Yes 12/23/18 4:51pm Did patient receive patient rights and responsibilities? Yes 12/23/18 4:51pm 12/24/2018 [facility] Functional Status No Data Provided for This Section
[2019-03-19] MEDS ORDERED: CYCLOBENZAPRINE HCL 10 MG TAB PO ONE (13:30)
[2019-03-19] MEDS ORDERED: DEXAMETHASONE SOD PHOS 10 MG/1 ML VIAL IM ONE (13:30)
[2019-03-19] MEDS ORDERED: TRAMADOL HCL 50 MG TAB PO ONE (13:30)
[2019-03-19 14:10] LABS: BILIRUBIN,URINE NEGATIVE (NEGATIVE); CLARITY,URINE SL CLOUDY (CLEAR); COLOR,URINE YELLOW (YELLOW); KETONES,URINE NEGATIVE (NEGATIVE); LEUKOCYTE ESTERASE ,URINE TRACE (NEGATIVE); NITRITE,URINE NEGATIVE (NEGATIVE); PROTEIN,URINE DIPSTICK NEGATIVE (NEGATIVE); URINE UROBILINOGEN 0.2 mg/dL (0.2 - 1)
[2019-03-19 14:30] LABS: BACTERIA,URINE MODERATE /HPF; EPITHELIAL CELLS,URINE MODERATE /LPF; RBC,URINE 0-5 /HPF (0-5); RENAL EPITHELIAL CELLS,URINE RARE; TRANSITIONAL EPI CELLS,URINE FEW; WBC,URINE (MAN) 0-5 /HPF (0-5)
[2019-03-19] MEDS ORDERED: SODIUM CHLORIDE 0.9% 1000ML 0 ML ONE (19:18)
== END 2019-03-19 16:38 | disposition home or self-care (01) ==
LOC: ER 12:49
DX: S39.012A Strain of muscle, fascia and tendon of lower back, initial encounter (principal); I10 Essential (primary) hypertension; E03.9 Hypothyroidism, unspecified; N39.0 Urinary tract infection, site not specified; G89.29 Other chronic pain; Z88.6 Allergy status to analgesic agent; Z88.5 Allergy status to narcotic agent; Z91.013 Allergy to seafood; Z91.018 Allergy to other foods; X58.XXXA Exposure to other specified factors, initial encounter
CPT/HCPCS: 81001; 87086; 99284; J1100; J7030

== ENCOUNTER → 2019-07-18 | Outpatient (CLI) | payer MEDICARE, OTHER ==
--- NOTE | 2019-07-18 14:36 | Diagnostic Imaging Report ---
Ultrasound of the Kidneys, 07/18/2019. Clinical History: Neoplasm of kidney Comparison: MRI of the abdomen dated 02/18/2019. Discussion: Sonographic evaluation of the kidneys is performed. Right kidney: 10.6 cm in length, normal in size, with cortical thickness of 1.3 cm. Normal cortical echogenicity. 2 anechoic cyst are identified measuring 1.6 x 1.3 x 1.6 cm arising from the midpole and 1.2 x 1.0 x 1.0 cm arising from the lower pole. No shadowing calculus. No hydronephrosis. Left kidney: 10.1 cm in length, normal in size, with cortical thickness of 1.5 cm. Normal cortical echogenicity. An anechoic exophytic cyst arises from the lower pole measuring 1.3 x 1.0 x 1.6 cm. No shadowing calculus. No hydronephrosis. Limited Doppler evaluation demonstrates normal color Doppler flow within bilateral renal berhane. Fluid: No perinephric fluid. Bladder: Unremarkable. IMPRESSION: Bilateral simple renal cysts. No kidney mass identified. Signed by: Hakan Gallardo MD on 07/18/2019 2:32 PM
== END ==
LOC: US 11:54
PROVIDERS: ATTEND Urology
DX: D41.00 Neoplasm of uncertain behavior of unspecified kidney (principal)
CPT/HCPCS: 76770

== ENCOUNTER 2019-10-14 21:38 | Emergency (ER) | payer MEDICARE ==
[~2019-10-14] VITALS: Ht 144.8 cm; Wt 67.1 kg
--- OUTSIDE RECORDS SUMMARY | 2019-10-14 21:41 | XMS REPORT ---
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 Name Role Phone Aguilar BLAIR Unavailable Unavailable ADAM CLAROS Unavailable Unavailable Ilana TRAN Unavailable Unavailable Payers Payer Name Policy Type [...] chicken derived DA Active U 2018-07-09 00:00:00 chicken derived FA Active U 2018-07-09 00:00:00 chicken derived DA Active U 2018-07-03 00:00:00 SEAFOOD DA Active SV 2018-06-24 00:00:00 hydrocodone DA Active SV 2018-06-24 00:00:00 aspirin DA Active SV 2018-06-24 00:00:00 acetaminophen DA Active SV 2018-06-24 00:00:00 ibuprofen DA Active SV 2018-06-24 00:00:00 aspirin DA Active U 2010-07-31 00:00:00 ibuprofen DA Active U 2010-07-31 00:00:00 SEAFOOD DA Active U 2010-07-31 00:00:00 Medications This patient has no known medications. Encounters Start Date/Time End Date/Time Encounter Type Admission Type Attending [facility] Care Department Encounter ID 2018-06-23 02:02:00 Inpatient [facility] [id number] 2018-06-22 12:47:27 Inpatient [facility] [id number] 2018-06-22 02:00:53 Inpatient [facility] [id number] 2018-06-21 13:54:42 Inpatient [facility] [id number] 2018-06-21 09:38:02 Inpatient [facility] [id number] 2018-06-21 02:08:33 Inpatient [facility] [id number] 2018-06-21 00:00:00 Inpatient [facility] [id number] 2018-06-21 00:00:00 Inpatient [facility] [id number] 2018-06-20 16:27:07 Inpatient [facility] [id number] 2018-06-20 02:03:43 Inpatient [facility] [id number] 2018-06-20 00:00:00 Inpatient [facility] [id number] 2018-06-19 07:33:48 Inpatient [facility] [id number] 2018-06-18 19:13:45 Inpatient [facility] [id number] 2018-06-18 15:48:19 Inpatient [facility] [id number] 2018-06-18 08:37:41 Inpatient [facility] [id number] 2018-06-10 11:03:47 Inpatient [facility] [id number] 2018-06-10 07:59:35 Inpatient [facility] [id number] 2018-06-10 02:02:17 Inpatient [facility] [id number] 2018-06-09 19:46:07 Inpatient [facility] [id number] 2018-06-09 14:41:10 Inpatient [facility] [id number] 2018-06-09 08:55:33 Inpatient [facility] [id number] 2018-06-09 02:41:18 Inpatient [facility] [id number] 2018-06-08 13:37:50 Inpatient [facility] [id number] 2018-06-07 17:57:51 Inpatient [facility] [id number] 2018-06-07 17:01:19 [facility]patient [facility] [id number] 2018-06-07 00:02:10 [facility]patient [facility] [id number] 2018-06-07 00:00:00 [facility] [id number] 2018-06-06 16:08:32 [facility] [id number] 2018-06-06 12:25:45 [facility] [id number] 2018-06-06 00:05:32 [facility] [id number] 2018-06-05 00:05:08 [facility] [id number] 2018-06-04 18:43:58 [facility] [id number] 2018-06-04 09:07:00 Inpatient [facility] [id number] 2018-06-04 00:00:00 [facility] [id number] 2018-06-03 00:00:00 Inpatient [facility] [id number] 2018-04-16 00:00:00 Inpatient [facility] [id number] 2018-02-18 00:00:00 Inpatient [facility] [id number] 2018-02-08 00:00:00 Inpatient [facility] [id number] 2019-06-30 09:14:00 2019-06-30 09:14:00 Outpatient [facility] [id number] 2019-05-09 00:00:00 2019-05-09 00:00:00 Outpatient [facility] [id number] 2019-02-13 00:00:00 2019-02-13 00:00:00 Outpatient [facility] [id number] 2019-02-12 00:00:00 2019-02-12 00:00:00 Outpatient [facility] [id number] 2018-12-25 00:00:00 2018-12-25 00:00:00 Outpatient [facility] [id number] 2018-12-18 00:00:00 2018-12-18 00:00:00 Outpatient [facility] [id number] 2018-12-13 00:00:00 2018-12-13 00:00:00 Outpatient [facility] [id number] 2018-12-13 00:00:00 2018-12-13 00:00:00 Outpatient [facility] [id number] 2018-12-12 14:01:36 2018-12-12 14:01:36 Outpatient [facility] [id number] 2018-11-19 00:00:00 2018-11-19 00:00:00 Outpatient [facility] [id number] 2018-11-13 11:23:33 2018-11-13 11:23:33 Outpatient [facility] [id number] 2018-11-11 00:00:00 2018-11-11 00:00:00 Outpatient [facility] [id number] 2018-11-07 08:50:00 2018-11-07 08:50:00 Outpatient [facility] [id number] 2018-10-25 13:49:32 2018-10-25 13:49:32 Outpatient [facility] [id number] 2018-10-17 15:19:35 2018-10-17 15:19:35 Outpatient [facility] [id number] 2018-09-13 11:29:36 2018-09-13 11:29:36 Outpatient [facility] [id number] 2018-09-10 10:54:26 2018-09-10 10:54:26 Outpatient [facility] [id number] 2018-07-23 00:00:00 2018-07-23 00:00:00 Outpatient [facility] [id number] 2018-07-23 00:00:00 2018-07-23 00:00:00 Outpatient [facility] [id number] 2018-07-18 00:00:00 2018-07-18 00:00:00 Outpatient [facility] [id number] 2018-07-18 00:00:00 2018-07-18 00:00:00 Outpatient [facility] [id number] 2018-07-18 00:00:00 2018-07-18 00:00:00 Outpatient [facility] [id number] 2018-07-11 00:00:00 2018-07-11 00:00:00 Outpatient [facility] [id number] 2018-07-10 00:00:00 2018-07-10 00:00:00 Outpatient [facility] [id number] 2018-06-26 00:00:00 2018-06-26 00:00:00 Outpatient [facility] [id number] 2018-06-26 00:00:00 2018-06-26 00:00:00 Outpatient [facility] [id number] 2018-06-18 00:00:00 2018-06-18 00:00:00 Emergency [facility] [id number] 2018-06-17 23:55:03 2018-06-17 23:55:03 Emergency [facility] [id number] 2018-06-17 22:41:34 2018-06-17 22:41:34 Emergency [facility] [id number] 2018-06-17 21:18:29 2018-06-17 21:18:29 Emergency [facility] [id number] 2018-06-17 19:13:01 2018-06-17 19:13:01 Inpatient [facility] [id number] 2018-06-14 00:00:00 2018-06-14 00:00:00 Outpatient [facility] [id number] 2018-06-12 11:24:28 2018-06-12 11:24:28 Outpatient [facility] [id number] 2018-06-12 00:00:00 2018-06-12 00:00:00 Outpatient [facility] [id number] 2018-06-12 00:00:00 2018-06-12 00:00:00 Outpatient [facility] [id number] 2018-06-03 08:32:44 2018-06-03 08:32:44 Outpatient [facility] [id number] 2018-05-23 09:57:46 2018-05-23 09:57:46 Outpatient [facility] [id number] 2018-05-23 00:00:00 2018-05-23 00:00:00 Outpatient [facility] [id number] 2018-05-16 14:39:51 2018-05-16 14:39:51 Outpatient [facility] [id number] 2018-05-06 00:00:00 2018-05-06 00:00:00 Outpatient [facility] [id number] 2018-05-06 00:00:00 2018-05-06 00:00:00 Outpatient [facility] [id number] 2018-05-02 13:09:04 2018-05-02 13:09:04 Outpatient [facility] [id number] 2018-05-02 11:11:14 2018-05-02 11:11:14 Outpatient [facility] [id number] 2018-05-01 00:00:00 2018-05-01 00:00:00 Outpatient [facility] [id number] 2018-04-30 07:54:36 2018-04-30 07:54:36 Outpatient [facility] [id number] 2018-04-30 07:54:33 2018-04-30 07:54:33 Outpatient [facility] [id number] 2018-04-29 13:00:12 2018-04-29 13:00:12 Outpatient [facility] [id number] 2018-04-29 08:19:49 2018-04-29 08:19:49 Outpatient [facility] [id number] 2018-04-29 00:00:00 2018-04-29 00:00:00 Outpatient [facility] [id number] 2018-04-26 14:18:20 2018-04-26 14:18:20 Outpatient [facility] [id number] 2018-04-25 07:50:04 2018-04-25 07:50:04 Outpatient [facility] [id number] 2018-04-24 07:20:05 2018-04-24 07:20:05 Outpatient [facility] [id number] 2018-04-03 16:49:00 2018-04-03 16:49:00 Outpatient [facility] [id number] 2018-04-03 15:45:29 2018-04-03 15:45:29 Outpatient [facility] [id number] 2018-03-29 14:41:44 2018-03-29 14:41:44 Outpatient [facility] [id number] 2018-03-29 08:52:17 2018-03-29 08:52:17 Outpatient [facility] [id number] 2018-03-28 15:37:13 2018-03-28 15:37:13 Outpatient [facility] [id number] 2018-03-28 14:30:13 2018-03-28 14:30:13 Outpatient [facility] [id number] 2018-03-28 00:00:00 2018-03-28 00:00:00 Outpatient [facility] [id number] 2018-03-18 15:50:50 2018-03-18 15:50:50 Outpatient [facility] [id number] 2018-03-11 00:00:00 2018-03-11 00:00:00 Outpatient [facility] [id number] 2018-03-08 13:10:49 2018-03-08 13:10:49 Outpatient [facility] [id number] 2018-03-08 11:21:30 2018-03-08 11:21:30 Outpatient [facility] [id number] 2018-03-08 00:00:00 2018-03-08 00:00:00 Outpatient [facility] [id number] 2018-03-06 13:50:43 2018-03-06 13:50:43 Outpatient [facility] [id number] 2018-02-14 15:33:00 2018-02-14 15:33:00 Outpatient [facility] [id number] 2018-02-08 00:00:00 2018-02-08 00:00:00 Outpatient [facility] [id number] 2018-02-07 08:08:41 2018-02-07 08:08:41 Outpatient [facility] [id number] 2018-02-07 00:00:00 2018-02-07 00:00:00 Outpatient [facility] [id number] 2018-01-30 11:24:28 2018-01-30 11:24:28 Outpatient [facility] [id number] 2018-01-21 09:38:22 2018-01-21 09:38:22 Outpatient [facility] [id number] 2018-01-16 10:34:54 2018-01-16 10:34:54 Outpatient [facility] [id number] 2017-12-20 12:18:36 2017-12-20 12:18:36 Outpatient [facility] [id number] 2017-12-19 12:58:51 2017-12-19 12:58:51 Outpatient [facility] [id number] 2017-12-18 13:00:59 2017-12-18 13:00:59 Outpatient [facility] [id number] 2017-11-29 13:47:03 2017-11-29 13:47:03 Outpatient [facility] [id number] 2017-11-28 15:40:02 2017-11-28 15:40:02 Outpatient [facility] [id number] 2017-11-28 15:16:48 2017-11-28 15:16:48 Outpatient [facility] [id number] 2017-11-26 10:58:33 2017-11-26 10:58:33 Outpatient [facility] [id number] 2017-11-16 12:34:53 2017-11-16 12:34:53 Outpatient [facility] [id number] 2017-11-08 15:32:01 2017-11-08 15:32:01 Outpatient [facility] [id number] 2017-11-02 10:51:34 2017-11-02 10:51:34 Outpatient [facility] [id number] 2017-10-30 12:09:19 2017-10-30 12:09:19 Outpatient [facility] [id number] 2017-10-30 11:41:54 2017-10-30 11:41:54 Outpatient [facility] [id number] 2017-10-30 09:47:21 2017-10-30 09:47:21 Outpatient [facility] [id number] 2017-10-23 11:05:48 2017-10-23 11:05:48 Outpatient [facility] [id number] 2017-10-18 11:02:41 2017-10-18 11:02:41 Outpatient [facility] [id number] 2017-10-18 08:58:31 2017-10-18 08:58:31 Outpatient [facility] [id number] 2017-10-15 11:38:23 2017-10-15 11:38:23 Outpatient [facility] [id number] 2017-10-15 08:30:21 2017-10-15 08:30:21 Outpatient [facility] [id number] 2017-09-20 16:18:51 2017-09-20 16:18:51 Outpatient [facility] [id number] 2017-09-14 12:39:24 2017-09-14 12:39:24 Outpatient [facility] [id number] 2017-09-13 00:00:00 2017-09-13 00:00:00 Outpatient [facility] [id number] 2017-09-12 14:55:30 2017-09-12 14:55:30 Outpatient [facility] [id number] 2017-09-07 11:25:27 2017-09-07 11:25:27 Outpatient [facility] [id number] 2017-09-07 00:00:00 2017-09-07 00:00:00 Outpatient [facility] [id number] 2017-09-04 00:00:00 2017-09-04 00:00:00 Outpatient [facility] [id number] 2017-09-03 08:02:16 2017-09-03 08:02:16 Outpatient [facility] [id number] 2017-08-24 14:27:57 2017-08-24 14:27:57 Outpatient [facility] [id number] 2017-08-15 16:22:10 2017-08-15 16:22:10 Outpatient [facility] [id number] 2017-08-15 14:50:40 2017-08-15 14:50:40 Outpatient [facility] [id number] 2017-08-02 00:00:00 2017-08-02 00:00:00 Outpatient [facility] [id number] 2017-07-23 09:41:20 2017-07-23 09:41:20 Outpatient [facility] [id number] 2017-07-23 07:53:45 2017-07-23 07:53:45 Outpatient [facility] [id number] 2017-07-10 12:17:47 2017-07-10 12:17:47 Outpatient [facility] [id number] 2017-07-03 13:33:36 2017-07-03 13:33:36 Outpatient [facility] [id number] 2017-06-26 00:00:00 2017-06-26 00:00:00 Outpatient [facility] [id number] 2017-06-18 00:00:00 2017-06-18 00:00:00 Outpatient [facility] [id number] 2017-06-12 13:53:44 2017-06-12 13:53:44 Outpatient [facility] [id number] 2017-06-12 00:00:00 2017-06-12 00:00:00 Outpatient [facility] [id number] 2017-06-08 14:06:17 2017-06-08 14:06:17 Outpatient [facility] [id number] 2017-06-08 12:56:41 2017-06-08 12:56:41 Outpatient [facility] [id number] 2017-05-16 15:03:56 2017-05-16 15:03:56 Outpatient [facility] [id number] 2017-05-16 12:00:22 2017-05-16 12:00:22 Outpatient [facility] [id number] 2017-04-04 00:00:00 2017-04-04 00:00:00 Outpatient [facility] [id number] 2017-03-26 00:00:00 2017-03-26 00:00:00 Outpatient [facility] [id number] 2017-03-15 00:00:00 2017-03-15 00:00:00 Outpatient [facility] [id number] 2017-03-01 00:00:00 2017-03-01 00:00:00 Outpatient [facility] [id number] 2017-03-01 00:00:00 2017-03-01 00:00:00 Outpatient [facility] [id number] 2017-02-14 13:52:47 2017-02-14 13:52:47 Outpatient [facility] [id number] 2017-01-31 09:03:10 2017-01-31 09:03:10 Outpatient [facility] [id number] 2017-01-30 14:56:50 2017-01-30 14:56:50 Outpatient [facility] [id number] 2017-01-30 00:00:00 2017-01-30 00:00:00 Outpatient [facility] [id number] 2017-01-23 15:24:40 2017-01-23 15:24:40 Outpatient [facility] [id number] 2017-01-23 15:24:33 2017-01-23 15:24:33 Outpatient [facility] [id number] 2017-01-22 11:32:04 2017-01-22 11:32:04 Outpatient [facility] [id number] 2017-01-22 09:46:27 2017-01-22 09:46:27 Outpatient [facility] [id number] 2017-01-10 07:17:14 2017-01-10 07:17:14 Outpatient [facility] [id number] 2017-01-09 13:20:07 2017-01-09 13:20:07 Outpatient [facility] [id number] Results Test Description Test Time Test Comments Text Results Atomic Results Result Comments CHEST 2 VIEWS 2019-08-26 14:46:00 [place] [address] Patient Name: LASHON SANON MR #: [id number] : 1950 Age/Sex: 69/F Req #: [id number] Adm Physician: Ordered by: CHERELLE CHRISTOPHER NP Report #: [id number] Location: ER Room/Bed: Procedure: [id number] DX/CHEST 2 VIEWS Exam Date: Exam Time: REPORT STATUS: Signed EXAMINATION: CHEST 2 VIEWS INDICATION: Chest pain, shortness of breath COMPARISON: None FINDINGS: LINES/TUBES:None LUNGS:The lungs are moderately inflated. Right midlung subsegmental atelectasis. No focal consolidation or michelle pulmonary edema. PLEURA:No pleural effusion or pneumothorax. MEDIASTINUM:The cardiomediastinal silhouette appears normal in size and shape. Atherosclerotic calcifications of the thoracic aorta. BONES/SOFT TISSUES:No acute osseous injury. ABDOMEN:No free air under the diaphragm. Status post cholecystectomy. IMPRESSION: No focal pneumonia or michelle pulmonary edema. Signed by: Rhianna Matthew MD on 08/26/2019 2:48 PM Dictated By: RHIANNA MATTHEW MD 1448 Transcribed By: SHAHLA on 08/26/19 1448 COPY TO: CHERELLE CHRISTOPHER NP RENAL RETROPERITONEAL COMP 2019-07-18 14:30:00 [place] [address] Patient Name: LASHON SANON MR #: [id number] : 1950 Age/Sex: 69/F Req #: [id number] Adm Physician: Ordered by: ADAM CLAROS MD Report #: [id number] Location: Room/Bed: Procedure: [id number] US/US RENAL RETROPERITONEAL COMP Exam Date: 07/18/19 Exam Time: 1232 REPORT STATUS: Signed Ultrasound of the Kidneys, 07/18/2019. Clinical History: Neoplasm of kidney Comparison: MRI of the abdomen dated 02/18/2019. Discussion: Sonographic evaluation of the kidneys is performed. Right kidney: 10.6 cm in length, normal in size, with cortical thickness of 1.3 cm. Normal cortical echogenicity. 2 anechoic cyst are identified measuring 1.6 x 1.3 x 1.6 cm arising from the midpole and 1.2 x 1.0 x 1.0 cm arising from the lower pole. No shadowing calculus. No hydronephrosis. Left kidney: 10.1 cm in length, normal in size, with cortical thickness of 1.5 cm. Normal cortical echogenicity. An anechoic e xophytic cyst arises from the lower pole measuring 1.3 x 1.0 x 1.6 cm. No shadowing calculus. No hydronephrosis. Limited Doppler evaluation demonstrates normal color Doppler flow within bilateral renal berhane. Fluid: No perinephric fluid. Bladder: Unremarkable. IMPRESSION: Bilateral simple renal cysts. No kidney mass identified. Signed by: Hakan Centeno MD on 07/18/2019 2:32 PM Dictated By: HAKAN CENTENO MD 31 Transcribed By: SHAHLA on 07/18/19 143 COPY TO: ADAM CLAROS MD - CT CHEST W/O CONTRAST 2019-06-13 14:54:00 Name: LASHON SANON [facility] : 1950 Age/S: 69 / F [address] [facility] Unit #: [id number] Loc: [place] [address] Phys: Reed Morel MD Acct: [id number] Dis Date: Status: REG CLI PHONE #: [phone] Exam Date: 06/13/2019 1055 FAX #: [phone] Reason: PULMONARY DISEASE EXAMS: CPT CODE: [id number] CT CHEST W/O CONTRAST [id number] REASON FOR EXAM: PULMONARY DISEASE EXAM ORDER DATE: 06/13/2019 10:47 AM Ordering M.D.: Reed Morel MD PROCEDURE: - CT CHEST W/O CONTRAST Comparison:CT chest October 22, [address] images of the chest were obtained without IV contrast. Reconstructed sagittal and coronal images of the chest were provided for interpretation. Dose reduction techniques were applied. FINDINGS: The absence of IV contrast limits the sensitivity of this exam for detecting soft tissue pathology and differentiating atelectasis from consolidations. Visualized neck: Grossly normal Airways, Lungs and Pleura: Calcified pleural plaques overlying the posterior segment of the right upper lobe and superior segment of the right lower lobe are unchanged from the previous examination. There are fibrotic changes in both lungs with lower lobe predilection. These fibrotic changes demonstrate a peripheral distribution. There are a few scattered areas of honeycombing such as in the superior segment of the left lower lobe. No subpleural sparing is seen. Heart, great vessels, pulmonary vessels, mediastinum: Atherosclerotic disease is scattered throughout the thoracic aorta. No appreciable coronary calcifications. Cardiac chambers are normal in size. Normal caliber of the pulmonary trunk and thoracic aorta Lymph nodes: No axillary or internal mammary adenopathy. Subcentimeter mediastinal lymph nodes are unchanged from the prior exam. Hilar lymph nodes are suboptimally evaluated due to the absence of IV contrast Musculoskeletal/chest wall: Degenerative changes are present in the spine. Visualized upper abdomen: There is a Hemorrhagic cyst in the right kidney that is unchanged from the prior exam. Severe fatty replacement of the pancreas is unchanged from the prior exam. Hepatic steatosis is PAGE 1 Signed Report (CONTINUED) Name: LASHON SANON [facility] : 1950 Age/S: 69 / F [address] [facility] Unit #: [id number] [place] [address] Phys: Reed Morel MD Acct: [id number] Dis Date: Status: REG CLI PHONE #: [phone] Exam Date: 06/13/2019 1055 FAX #: [phone] Reason: PULMONARY DISEASE EXAMS: CPT CODE: [id number] CT CHEST W/O CONTRAST 68627 <Continued> present. Prior cholecystectomy. IMPRESSION: Interstitial lung disease most closely matching a usual interstitial pneumonitis pattern. These findings appear grossly unchanged from the prior exam. Pleural plaques in the right lung may be from prior stenosis exposure or may also be seen with prior trauma (as sequela of prior hemothorax). Location: [facility] at 4884 Reported and signed by: Arsenio Mcnulty MD CC: Reed Morel MD; Petey Newton MD Technologist:Jammie Figueroa,RT(R),CT CTDI: DLP: Trnscb Date/Time: 06/13/2019 (1454) [email or web address] Orig Print D/T: S: 06/13/2019 (6880) PAGE 2 Signed Report MRI ABDOMEN WOW 2019-02-20 09:37:00 [facility] [address] [address] Patient Name: LASHON SANON MR #: [id number] : 1950 Age/Sex: 68/F Req #: [id number] Adm Physician: Ordered by: ADAM CLAROS MD Report #: [id number] Location: MRI Room/Bed: Procedure: [id number] MRI/MRI ABDOMEN WOW Exam Date: Exam Time: REPORT STATUS: Signed EXAMINATION: MRI Abdomen with and without contrast. TECHNIQUE: Axial T1 nonfat sat in and out of phase, axial T2 fat sat, coronal T2 nonfat sat, axial DWI and ADC MR images of the abdomen were obtained before and after the administration of 13 cc of gadolinium. Axial T1 fat sat GRE dynamic images in precontrast, arterial, venous and delayed phases were obtained. 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 LIVER: The hepatic contour is normal.. Marked diffuse signal dropout of hepatic parenchyma on out of phase images, consistent with severe steatosis. No focal hepatic lesions. BILIARY: No ductal dilatation or filling defect. Cholecystectomy. PANCREAS: No mass or ductal dilatation. Marked fatty replacement of the pancreas. SPLEEN: No splenomegaly. ADRENALS: No nodules. KIDNEYS: Symmetrical renal enhancement, without hydronephrosis or perinephric stranding. Right: Cystic lesions as follows: * 1.5 x 1.3 cm T1 hyperintense, T2 hypointense, mostly exophytic lesion in the posterior interpolar region (series 4, image 44), which shows no enhancement on postcontrast images, consistent with a hemorrhagic cyst. * Adjacent 0.8 cm T1 hypointense, T2 hyperintense nonenhancing lesion (series 100, image 68) consistent with a simple cyst. * 1.1 cm T2 hyperintense, T1 hypointense nonenhancing lesion in the right inferior pole (series 6, image 30), consistent with a simple cyst. * Additional punctate T2 hyperintense nonenhancing lesions which are too small to characterize, but likely represent tiny cysts. Left: Cystic lesions as follows: * 1.1 x 1.0 cm T2 hyperintense, T1 hypointense, nonenhancing lesion in the superior pole, consistent with a simple cyst (series 6, image 20). * 1.1 cm mostly exophytic T1 hypointense, T2 mildly hyperintense, nonenhancing lesion in the inferior pole (series 6, image 29). * Additional punctate T2 hyperintense nonenhancing lesions which are too small to characterize but likely represent tiny cysts. PERITONEUM / RETROPERITONEUM: No upper abdominal free fluid. GI TRACT: Visualized bowel shows no dilation or obstruction. LYMPH NODES: No upper abdominal lymphadenopathy. VESSELS: The celiac trunk, superior and inferior mesenteric and bilateral renal arteries are patent. The portal, superior mesenteric and splenic veins are patent. No collateral circulation. BONES AND SOFT TISSUES: No abnormal bone marrow signal. No soft tissue abnormalities. IMPRESSION: 1. 1.5 cm right posterior interpolar renal hemorrhagic cyst. Bilateral simple cysts. No further follow-up is indicated. 2. Severe hepatic steatosis (calculated hepatic fat fraction 35.7%, hepatic fat percentage 34.4%). No focal lesions. 3. Marked fatty replacement of the pancreas. No focal lesions or ductal dilation. Signed by: Dr. Danielito Araiza M.D. on 02/20/2019 9:55 AM Dictated By: ROSA ARAIZA MD 4 Transcribed By: SHAHLA on 02/20/19954 COPY TO: ADAM CLAROS MD CT ABDOMEN/PELVIS W 2018-12-23 20:20:00 [place] [address] Patient Name: LASHON SANON MR #: [id number] : 1950 Age/Sex: 68/F Re #: [id number] [facility] Physician: Ordered by: DEMI TRAN MD Report #: [id number] Location: Room/Bed: Procedure: [id number] CT/CT ABDOMEN/PELVIS W Exam Date: 12/23/18 Exam Time: 2015 REPORT STATUS: Signed EXAM: CT Abdomen and Pelvis WITH contrast INDICA TION: SEVERE GENERALIZED ABD PAIN COMPARISON: None. TECHNIQUE: Abdomen and pelvis were scanned utilizing a multidetector helical scanner from the lung base to the pubic symphysis after administration of IV contrast. Coronal and sagittal reformations were obtained. Routine protocol was performed. Scan was performed when during portal venous phase. IV CONTRAST: 100 mL of Isovue 370 ORAL CONTRAST: Gastrografin COMPLICATIONS: None RADIATION DOSE: Total DLP: 492.02 mGy*cm Estimated effective dose: (DLP x 0.015 x size factor) mSv CTDIvol has been reviewed. It is below the limits set by the Radiation Protocol Committee (RPC). Dose modulation, iterative reconstruction, and/or weight based adjustment of the mA/kV was utilized to reduce the radiation dose to as low as reasonably achievable. FINDINGS: LINES and TUBES: None. LOWER THORAX: Fibrotic changes in the lung bases. Mild honeycombing and subpleural reticulation in both lower lobes. Surgical margin along the medial right lower lobe (series 2, image 2). 10.7 mm enhancing lesion in the right lower lobe abutting the surgical margin (series 2, image 3). 6.8 mm pleural-based nodularity in the right lower lobe (series 2, image 12). HEPATOBILIARY: The liver is diffuse hypodense compared to the spleen, consistent with diffuse hep atic diffuse hepatic steatosis. No focal hepatic lesions. No biliary ductal dilation. GALLBLADDER: There are cholecystectomy clips. SPLEEN: No splenomegaly. PANCREAS: There is fatty infiltration of the pancreas. ADRENALS: No adrenal nodules KIDNEYS/URETERS: Kidneys enhance symmetrically. No hydronephrosis. No stones. * 1.6 cm exophytic lesion in the posterior interpolar region of the right kidney with density measuring 76 Hounsfield units (series 2, image 29). * 0.9 cm hypodense lesion in the posterior interpolar region of the right kidney (image 29). * 1.0 cm cystic lesion in the inferior pole of the right kidney with density measuring 35 Hounsfield units. (Series 2, image 38). * 1.0 cm hypodense lesion superior pole left kidney (image 26) * 1.1 cm hypodense lesion in the inferior pole of the left kidney with density measuring 26 HU. (Image 38). GI TRACT: Tiny sliding hiatal hernia. No abnormal distention, wall thickening, or evidence of bowel obstruction. Appendix is normal. PELVIC ORGANS/BLADDER: Mild pelvic floor prolapse. LYMPH NODES: No lymphadenopathy. VESSELS: There is mild atherosclerotic disease in the aorta and major arterial branches. PERITONEUM / RETROPERITONEUM: No free air or fluid. BONES: Unremarkable. SOFT TISSUES: Unremarkable. IMPRESSION: 1. Diffuse hepatic steatosis. 2. No acute bowel pathology. 3. Severe fatty infiltration of the pancreas. 4. Multiple cystic lesions in the kidneys. There is however a 1.6 cm right renal mass. Recommend additional evaluation with CT or MR abdomen without and with contrast renal mass protocol for further evaluation. 5. Several pulmonary nodules. There appears to be a wedge resection in the right lower lobe. There is an associated 1.1 cm enhancing nodule at the margin of the surgical resection. Correlate with appropriate surgical history. Signed by: Dr. Chaz Hawley M.D. on 12/23/2018 8:30 PM Dictated By: CHAZ HAWLEY MD 29 Transcribed By: SHAHLA on 12/23/182029 COPY TO: DEMI TRAN MD - CT CHEST W/O CONTRAST 2018-10-22 13:43:00 Name: LASHON SANON [facility] : 1950 Age/S: 68 / F [address] Unit #: [id number] Loc: [place] [address] Phys: Reed Morel MD Acct: [id number] Dis Date: Status: REG CLI PHONE #: [phone] Exam Date: 10/22/2018 1241 FAX #: [phone] Reason: INTERSTITIAL PULMONARY DISEASE EXAMS: CPT CODE: [id number] CT CHEST W/O CONTRAST 13783 HISTORY: Interstitial pulmonary disease. COMPARISON: CT chest [...] 1 Signed Report (CONTINUED) Name: LASHON SANON [facility] : 1950 Age/S: 68 / F [address] [facility] Unit #: [id number] Loc: [place] [address] Phys: Reed Morel MD Acct: [id number] Dis Date: Status: REG CLI PHONE #: [phone] Exam Date: 10/22/2018 1241 FAX #: [phone] Reason: INTERSTITIAL PULMONARY DISEASE EXAMS: CPT CODE: [id number] CT CHEST W/O CONTRAST 00359 <Continued> CC: Reed Morel MD; Petey Galvan MD Technologist:Lay Floyd RT(R),CT CTDI: DLP: Trnscb Date/Time: 10/22/2018 (4636) t.[email or web address].[email or web address] Orig Print D/T: S: 10/22/2018 (7631) CTDI: DLP: PAGE 2 Signed Report
[2019-10-14] MEDS ORDERED: ACETAMINOPHEN 325 MG TAB PO ONE (23:15)
--- NOTE | 2019-10-15 00:32 | Diagnostic Imaging Report ---
EXAMINATION: CHEST 2 VIEWS INDICATION: Fever. COMPARISON: Chest radiograph 08/26/2019. FINDINGS: LINES/TUBES:None LUNGS:Low lung volumes. Central vascular congestion. Right midlung subsegmental atelectasis versus scarring is unchanged. Minimal patchy left basilar opacity, likely atelectasis. No evidence of lobar pneumonia or pulmonary edema. Chain sutures in the right midlung. PLEURA:No pleural effusion or pneumothorax. MEDIASTINUM:The cardiomediastinal silhouette appears normal in size and shape. Atherosclerotic calcifications of the thoracic aorta. BONES/SOFT TISSUES:No acute osseous injury. ABDOMEN:No free air under the diaphragm. Status post cholecystectomy. IMPRESSION: No evidence of pneumonia. Signed by: Dr. Keanu Holman MD on 10/15/2019 12:30 AM
== END 2019-10-15 02:20 | disposition home or self-care (01) ==
LOC: ER 21:38
DX: R50.9 Fever, unspecified (principal); R05 Cough; R09.81 Nasal congestion
CPT/HCPCS: 71046; 87400; 99283

== ENCOUNTER 2020-02-18 13:45 | Emergency (ER) | payer MEDICARE ==
[~2020-02-18] VITALS: Ht 144.8 cm; Wt 67.1 kg
[2020-02-18] MEDS ORDERED: ONDANSETRON HCL INJ 2MG/ML 2ML 2 MG/ML VIAL IV STA (15:13)
[2020-02-18] MEDS ORDERED: PANTOPRAZOLE 40 MG 10ML VIAL IV STA (15:13)
[2020-02-18] MEDS ORDERED: SODIUM CHLORIDE 0.9% 1000ML 1,000 ML IV STA (15:13)
[2020-02-18 15:34] LABS: BASOPHILS % 0.5 % (0.0-1.0); EOSINOPHILS # (AUTO) 0.2 (0.0-0.4); EOSINOPHILS % 1.9 % (0.0-6.0); HEMATOCRIT 41.2 % (34.2-44.1); HEMOGLOBIN 13.4 g/dL (12.0-16.0); LYMPHOCYTES # (AUTO) 2.4 (1.0-3.2); LYMPHOCYTES % 29.8 % (18.0-39.1); MEAN CORPUSCULAR HEMOGLOBIN 30.7 pg (28-32); MEAN CORPUSCULAR HGB CONC 32.5 g/dL (31-35); MEAN CORPUSCULAR VOLUME 94.5 fL (81-99); MONOCYTES # (AUTO) 0.7 (0.2-0.8); MONOCYTES % 8.2 % (4.4-11.3); NEUTROPHILS # (AUTO) 4.7 (2.1-6.9); NEUTROPHILS % 58.8 % (38.7-80.0); PLATELET COUNT 246 x10e3/uL (140-360); RED BLOOD COUNT 4.36 x10e6/uL (3.6-5.1); RED CELL DISTRIBUTION WIDTH 12.8 % (11.7-14.4)
[2020-02-18 15:48] LABS: INR 0.84; PARTIAL THROMBOPLASTIN TIME 26.9 seconds (23.8-35.5)
[2020-02-18 15:56] LABS: ALANINE AMINOTRANSFERASE 46 IU/L (0-55); ALBUMIN/GLOBULIN RATIO 1.1 (0.8-2.0); ALKALINE PHOSPHATASE 90 IU/L (40-150); AMYLASE 66 U/L (25-125); ANION GAP 12.1 mmol/L (8-16); BLOOD UREA NITROGEN 11 mg/dL (7-26); BUN/CREATININE RATIO 14 (6-25); CALCIUM 9.6 mg/dL (8.4-10.2); CARBON DIOXIDE 26 mmol/L (22-29); CHLORIDE 109 mmol/L (98-107); CREATINE KINASE 32 IU/L (29-168); CREATININE, SERUM 0.81 mg/dL (0.57-1.11); EST GLOMERULAR FILTRATION RATE > 60 ML/MIN (60-); GLUCOSE 120 mg/dL (74-118); LIPASE 10 U/L (8-78); POTASSIUM 4.1 mmol/L (3.5-5.1); SODIUM 143 mmol/L (136-145)
--- NOTE | 2020-02-18 17:25 | Diagnostic Imaging Report ---
EXAM: CT Abdomen and Pelvis WITH contrast INDICATION: Generalized abdominal pain. COMPARISON: None. TECHNIQUE: Abdomen and pelvis were scanned utilizing a multidetector helical scanner from the lung base to the pubic symphysis after administration of IV contrast. Coronal and sagittal reformations were obtained. Routine protocol was performed. Scan was performed when during portal venous phase. IV CONTRAST: 100 mL of Isovue 370 ORAL CONTRAST: None COMPLICATIONS: None RADIATION DOSE: Total DLP: 578.21 mGy*cm Estimated effective dose: (DLP x 0.015 x size factor) mSv CTDIvol has been reviewed. It is below the limits set by the Radiation Protocol Committee (RPC). Dose modulation, iterative reconstruction, and/or weight based adjustment of the mA/kV was utilized to reduce the radiation dose to as low as reasonably achievable. FINDINGS: LINES and TUBES: None. LOWER THORAX: There is bibasilar atelectasis. HEPATOBILIARY: The liver is diffusely hypodense, findings compatible with hepatic steatosis. No focal hepatic lesions. No biliary ductal dilation. GALLBLADDER: Surgically absent. SPLEEN: No splenomegaly. PANCREAS: There is diffuse fatty infiltration of pancreas. No acute inflammatory changes. ADRENALS: No adrenal nodules KIDNEYS/URETERS: There is a small 1.2 cm exophytic cyst in the inferior pole of left kidney. There is an indeterminate 1.7 cm hyperdense (HU 65) exophytic lesion with thin wall, no mural nodule or calcification in the mid pole of the right kidney series (2 image 163). No hydronephrosis. No stones. GI TRACT: There is a fat density ovoid structure adjacent to the descending colon (series 301 image 57) which likely represent an old omental infarct, a benign finding. No significant adjacent mesenteric fat stranding. No abnormal distention, wall thickening, or evidence of bowel obstruction. Appendix is normal. PELVIC ORGANS/BLADDER: Unremarkable. LYMPH NODES: No lymphadenopathy. VESSELS: The abdominal aorta and its major abdomen and pelvic branches have normal caliber and enhancement with mild atherosclerotic calcification. PERITONEUM / RETROPERITONEUM: No free air or fluid. BONES: Unremarkable. SOFT TISSUES: Unremarkable. IMPRESSION: 1. No acute intra-abdominal findings to explain the patient's symptoms were identified. 2. Hepatic steatosis. 3. Chronic fatty infiltration of the pancreas. No acute pancreatitis. 4. Indeterminate 1.7 cm hyperdense exophytic lesion in the midpole of the right kidney. No mural nodule or calcification. Recommend nonemergent evaluation of this lesion with contrast-enhanced CT or MRI (renal mass protocol). Please see below for evidence-based or soft tissues recommendations. Lucinda BR, Abdulaziz SG, Ervin NM, et al. Management of the Incidental Renal Mass on CT: A White Paper of the ACR Incidental Findings Committee. JACR 2017; Signed by: Niki Dick MD on 02/18/2020 5:22 PM
--- NOTE | 2020-02-18 18:38 | Emergency Department Note ---
History of Present Illnes History of Present Illness Chief Complaint: Abdominal Complaints History of Present Illness This is a 69 year old female C/O GENERALIZED ABD PAIN AND PRESSURE TO EPIGASTRIC AREA WITH N/V/D X 1 WEEK DARK GREEN/BLACK STOOLS SEEN BY DR MANRIQUE WHO SENT HER HERE FOR FURTHER EVAL. Historian: Patient Arrival Mode: Car Methods And Procedures Analyst Required: No Onset (how long ago): week(s) (1) Location: NAE Quality: CRAMPY PAIN Radiation: Reports non-radiation Severity: moderate Onset quality: gradual Timing of current episode: intermittent Progression: waxing and waning Chronicity: recurrent Context: Denies recent illness Relieving factors: none Exacerbating factors: none Associated symptoms: Reports denies other symptoms Treatments prior to arrival: none Past Medical/Family History Physician Review I have reviewed the patient's past medical and family history. Any updates have been documented here. Past Medical History Recent Fever: No Clinical Suspicion of Infectio: No New/Unexplained Change in Ment: No Past Medical History: Hypertension, Hypothyroidism, CAD, Depression, GERD, Chronic Back Pain Other Medical History: COLLAPSED RIGHT LUNG SCIATICA Past Surgical History: Cholecysctectomy, Hysterectomy, Hernia Repair, Back Surgery Other Surgery: "LUNG" SX RIGHT ARM Social History Smoking Cessation: Never Smoker Counseling Performed: No Alcohol Use: None Any Illegal Drug Use: No TB Exposure/Symptoms: No Physically hurt or threatened: No Family History Family history of heart diseas: No Other Last Tetanus: UNKNOWN Review of Systems Review of Systems Constitutional: Reports no symptoms EENTM: Reports no symptoms Cardiovascular: Reports no symptoms Respiratory: Reports no symptoms Gastrointestinal: Reports as per HPI Genitourinary: Reports no symptoms Musculoskeletal: Reports no symptoms Integumentary: Reports no symptoms Neurological: Reports no symptoms Psychological: Reports no symptoms Endocrine: Reports no symptoms Hematological/Lymphatic: Reports no symptoms Physical Exam Related Data Allergies: Coded Allergies: acetaminophen (Verified Allergy, Severe, 03/19/19) SOB hydrocodone (Verified Allergy, Severe, 03/19/19) SOB ibuprofen (Verified Allergy, Severe, 03/19/19) CHOKING, RED BUMPS, SOB shellfish derived (Verified Allergy, Severe, ALLERGIC TO SEAFOOD, 03/19/19) chicken derived (Verified Allergy, Intermediate, 03/19/19) Uncoded Allergies: SEAFOOD (Allergy, Severe, 11/21/18) RED BUMPS, SOB CHICKEN (Allergy, Intermediate, 11/21/18) VOMITING, DIARRHEA Triage Vital Signs Vital Signs Date Time Temp Pulse Resp B/P (MAP) Pulse Ox O2 Delivery O2 Flow Rate FiO2 02/18/20 14:57 98.7 90 18 179/88 96 Room Air Vital signs reviewed: Yes Physical Exam CONSTITUTIONAL Constitutional: Present well-developed, Present well-nourished HENT HENT: Present normocephalic, Present atraumatic, Present oropharynx clear/moist, Present nose normal HENT L/R: Present left ext ear normal, Present right ext ear normal EYES Eyes: Reports PERRL, Reports conjunctivae normal NECK Neck: Present ROM normal PULMONARY Pulmonary: Present effort normal, Present breath sounds normal CARDIOVASCULAR Cardiovascular: Present regular rhythm, Present heart sounds normal, Present capillary refill normal, Present normal rate GASTROINTESTINAL Abdominal: Present soft, Present tender (MILD NAE AREA, NO r/g) GENITOURINARY Genitourinary: Present exam deferred SKIN Skin: Present warm, Present dry MUSCULOSKELETAL Musculoskeletal: Present ROM normal NEUROLOGICAL Neurological: Present alert, Present oriented x 3, Present no gross motor or sensory deficits PSYCHOLOGICAL Psychological: Present mood/affect normal, Present judgement normal Results Laboratory Result Diagram: 02/18/20 1509 02/18/20 1509 Laboratory Laboratory Tests Test 02/18/20 15:09 White Blood Count 7.93 x10e3/uL (4.8-10.8) Red Blood Count 4.36 x10e6/uL (3.6-5.1) Hemoglobin 13.4 g/dL (12.0-16.0) Hematocrit 41.2 % (34.2-44.1) Mean Corpuscular Volume 94.5 fL (81-99) Mean Corpuscular Hemoglobin 30.7 pg (28-32) Mean Corpuscular Hemoglobin Concent 32.5 g/dL (31-35) Red Cell Distribution Width 12.8 % (11.7-14.4) Platelet Count 246 x10e3/uL (140-360) Neutrophils (%) (Auto) 58.8 % (38.7-80.0) Lymphocytes (%) (Auto) 29.8 % (18.0-39.1) Monocytes (%) (Auto) 8.2 % (4.4-11.3) Eosinophils (%) (Auto) 1.9 % (0.0-6.0) Basophils (%) (Auto) 0.5 % (0.0-1.0) Neutrophils # (Auto) 4.7 (2.1-6.9) Lymphocytes # (Auto) 2.4 (1.0-3.2) Monocytes # (Auto) 0.7 (0.2-0.8) Eosinophils # (Auto) 0.2 (0.0-0.4) Basophils # (Auto) 0.0 (0.0-0.1) Absolute Immature Granulocyte (auto 0.06 x10e3/uL (0-0.1) Prothrombin Time 12.0 seconds (11.9-14.5) Prothromb Time International Ratio 0.84 Activated Partial Thromboplast Time 26.9 seconds (23.8-35.5) Sodium Level 143 mmol/L (136-145) Potassium Level 4.1 mmol/L (3.5-5.1) Chloride Level 109 mmol/L (98-107) Carbon Dioxide Level 26 mmol/L (22-29) Anion Gap 12.1 mmol/L (8-16) Blood Urea Nitrogen 11 mg/dL (7-26) Creatinine 0.81 mg/dL (0.57-1.11) Estimat Glomerular Filtration Rate > 60 ML/MIN (60-) BUN/Creatinine Ratio 14 (6-25) Glucose Level 120 mg/dL (74-118) Calcium Level 9.6 mg/dL (8.4-10.2) Total Bilirubin 0.2 mg/dL (0.2-1.2) Aspartate Amino Transf (AST/SGOT) 38 IU/L (5-34) Alanine Aminotransferase (ALT/SGPT) 46 IU/L (0-55) Alkaline Phosphatase 90 IU/L (40-150) Creatine Kinase 32 IU/L (29-168) Creatine Kinase MB 1.00 ng/mL (0-5.0) Troponin I 0.003 ng/mL (0-0.300) Total Protein 7.8 g/dL (6.5-8.1) Albumin 4.0 g/dL (3.5-5.0) Globulin 3.8 g/dL (2.3-3.5) Albumin/Globulin Ratio 1.1 (0.8-2.0) Amylase Level 66 U/L (25-125) Lipase 10 U/L (8-78) Lab results reviewed: Yes Imaging Imaging results reviewed: Yes Impressions EXAM: CT Abdomen and Pelvis WITH contrast INDICATION: Generalized abdominal pain. COMPARISON: None. TECHNIQUE: Abdomen and pelvis were scanned utilizing a multidetector helical scanner from the lung base to the pubic symphysis after administration of IV contrast. Coronal and sagittal reformations were obtained. Routine protocol was performed. Scan was performed when during portal venous phase. IV CONTRAST: 100 mL of Isovue 370 ORAL CONTRAST: None COMPLICATIONS: None RADIATION DOSE: Total DLP: 578.21 mGy*cm Estimated effective dose: (DLP x 0.015 x size factor) mSv CTDIvol has been reviewed. It is below the limits set by the Radiation Protocol Committee (RPC). Dose modulation, iterative reconstruction, and/or weight based adjustment of the mA/kV was utilized to reduce the radiation dose to as low as reasonably achievable. FINDINGS: LINES and TUBES: None. LOWER THORAX: There is bibasilar atelectasis. HEPATOBILIARY: The liver is diffusely hypodense, findings compatible with hepatic steatosis. No focal hepatic lesions. No biliary ductal dilation. GALLBLADDER: Surgically absent. SPLEEN: No splenomegaly. PANCREAS: There is diffuse fatty infiltration of pancreas. No acute inflammatory changes. ADRENALS: No adrenal nodules KIDNEYS/URETERS: There is a small 1.2 cm exophytic cyst in the inferior pole of left kidney. There is an indeterminate 1.7 cm hyperdense (HU 65) exophytic lesion with thin wall, no mural nodule or calcification in the mid pole of the right kidney series (2 image 163). No hydronephrosis. No stones. GI TRACT: There is a fat density ovoid structure adjacent to the descending colon (series 301 image 57) which likely represent an old omental infarct, a benign finding. No significant adjacent mesenteric fat stranding. No abnormal distention, wall thickening, or evidence of bowel obstruction. Appendix is normal. PELVIC ORGANS/BLADDER: Unremarkable. LYMPH NODES: No lymphadenopathy. VESSELS: The abdominal aorta and its major abdomen and pelvic branches have normal caliber and enhancement with mild atherosclerotic calcification. PERITONEUM / RETROPERITONEUM: No free air or fluid. BONES: Unremarkable. SOFT TISSUES: Unremarkable. IMPRESSION: 1. No acute intra-abdominal findings to explain the patient's symptoms were identified. 2. Hepatic steatosis. 3. Chronic fatty infiltration of the pancreas. No acute pancreatitis. 4. Indeterminate 1.7 cm hyperdense exophytic lesion in the midpole of the right kidney. No mural nodule or calcification. Recommend nonemergent evaluation of this lesion with contrast-enhanced CT or MRI (renal mass protocol). Please see below for evidence-based or soft tissues recommendations. Lucinda BR, Abdulaziz SG, Ervin NM, et al. Management of the Incidental Renal Mass on CT: A White Paper of the ACR Incidental Findings Committee. JACR 2017; Signed by: Niki Dick MD on 02/18/2020 5:22 PM Assessment & Plan Medical Decision Making MDM CBC, CHEM, ANGIE/LIPASE, CT ABD/PELVIS, UA - R/O PANCREATITIS, ELEV LFT'S, ELECTROLYTE ABNL, RENAL INSUFF Reassessment Reassessment DC HOME, BENTYL/ZOFRAN ODT, F/U PCP & DR MANRIQUE, RTED PRN Assessment & Plan Final Impression: (1) Abdominal pain Depart Disposition: HOME, SELF-CARE Last Vital Signs Date Time Temp Pulse Resp B/P (MAP) Pulse Ox O2 Delivery O2 Flow Rate FiO2 02/18/20 14:57 98.7 90 18 179/88 96 Room Air Home Meds Reported Medications Metoclopramide Hcl (REGLAN) 10 Mg Tablet, 1 TAB PO BID 12/23/18 Amlodipine Besylate (AMLODIPINE BESYLATE) 5 Mg Tablet, 5 MG PO DAILY PRN for ELEVATED BLOOD PRESSURE, #30 TAB 12/23/18 Pantoprazole Sodium* (PROTONIX) 40 Mg Tablet.dr, 40 MG PO BID, TAB 11/21/18 Hydrocortisone (HYDROCORTISONE) 10 Mg Tablet, 10 MG PO BID, TAB 11/21/18 Mirtazapine (MIRTAZAPINE) 15 Mg Tab, 45 MG PO HS PRN for SLEEP, TAB 11/21/18 Levothyroxine Sodium (LEVOTHYROXINE SODIUM) 50 Mcg Tablet, 100 MCG PO DAILY, #30 TAB 11/21/18 Tramadol Hcl (ULTRAM) 50 Mg Tablet, 50 MG PO PRN, TAB 11/21/18 Medications in the ED Pantoprazole Sodium 40 mg ONCE STAT IV Last administered on 02/18/20at 17:47; Admin Dose 40 MG; Start 02/18/20 at 15:13; Stop 02/18/20 at 15:23; Status DC Ondansetron HCl 4 mg ONCE STAT IV Last administered on 02/18/20at 17:47; Admin Dose 4 MG; Start 02/18/20 at 15:13; Stop 02/18/20 at 15:23; Status DC Sodium Chloride 1,000 ml @ 0 mls/hr Q0M STAT IV Last administered on 02/18/20at 17:47; Admin Dose 999 MLS/HR; Start 02/18/20 at 15:13; Stop 02/18/20 at 15:16; Status DC PADMINI BLAIR MD Feb 18, 2020 18:38
[2020-02-18] MEDS ORDERED: IOPAMIDOL 370 MG/ML 200 ML INFUS..BTL INJ ONE (19:04)
[2020-02-18] MEDS ORDERED: SODIUM CHLORIDE 0.9% 50ML 50 ML ONE (19:04)
== END 2020-02-18 18:40 | disposition home or self-care (01) ==
LOC: ER 14:58
DX: R10.84 Generalized abdominal pain (principal); R11.2 Nausea with vomiting, unspecified; R19.7 Diarrhea, unspecified; N28.9 Disorder of kidney and ureter, unspecified; K76.0 Fatty (change of) liver, not elsewhere classified; I10 Essential (primary) hypertension; E03.9 Hypothyroidism, unspecified; I25.10 Atherosclerotic heart disease of native coronary artery without angina pectoris; K21.9 Gastro-esophageal reflux disease without esophagitis
CPT/HCPCS: 36415; 74177; 80053; 82150; 82550; 82553; 83690; 84484; 85025; 85610; 85730; 86850; 86900; 99283; C9113; J2405; J7030; Q9967

== ENCOUNTER 2020-02-24 13:18 | Emergency (ER) | payer OTHER, MEDICARE ==
[~2020-02-24] VITALS: Ht 144.8 cm; Wt 67.1 kg
--- NOTE | 2020-02-24 13:32 | NUR ---
pt given ice pack to hold on nose
[2020-02-24] MEDS ORDERED: HYDROCODONE/APAP 7.5MG-325MG 1 EA TAB PO ONE (13:45)
--- NOTE | 2020-02-24 13:51 | Emergency Department Note ---
History of Present Illnes History of Present Illness Chief Complaint: Head/Face Trauma History of Present Illness This is a 69 year old female . Historian: Patient Arrival Mode: Car Pot Maker Required: No Onset (how long ago): hour(s) (1) Onset quality: sudden Duration (how long): hour(s) (1) Progression: unchanged Chronicity: new Context: Denies recent illness, Denies recent surgery Relieving factors: none Exacerbating factors: movement Past Medical/Family History Physician Review I have reviewed the patient's past medical and family history. Any updates have been documented here. Past Medical History Recent Fever: No Clinical Suspicion of Infectio: No New/Unexplained Change in Ment: No Past Medical History: Hypertension, Hypothyroidism, CAD, Kidney Stones, Depression, GERD, Chronic Back Pain Other Medical History: COLLAPSED RIGHT LUNG SCIATICA Past Surgical History: Cholecysctectomy, Hysterectomy, Hernia Repair, Back Surgery Other Surgery: "LUNG" SX RIGHT ARM Social History Any Illegal Drug Use: No TB Exposure/Symptoms: No Physically hurt or threatened: No Family History Family history of heart diseas: No Other Last Tetanus: UNKNOWN Any Pre-Existing Lines (PICC,: No Is patient up to date on immun: No Review of Systems ROS Narrative Patient is a 69 year old female that presents with a fal. Patinet states that she tripped and fell forward with hands extended. patient C/O nose pain and swelling, senia knee pain and right arm pain x 35 minutes Review of Systems Constitutional: Reports no symptoms EENTM: Reports no symptoms Cardiovascular: Reports no symptoms Respiratory: Reports no symptoms Gastrointestinal: Reports no symptoms Genitourinary: Reports no symptoms Musculoskeletal: Reports muscle pain Integumentary: Reports no symptoms (pain, right arm pain and bridge of nose swollen ), Reports other Neurological: Reports no symptoms Psychological: Reports no symptoms Endocrine: Reports no symptoms Hematological/Lymphatic: Reports no symptoms Physical Exam Related Data Allergies: Coded Allergies: acetaminophen (Verified Allergy, Severe, 03/19/19) SOB hydrocodone (Verified Allergy, Severe, 03/19/19) SOB ibuprofen (Verified Allergy, Severe, 03/19/19) CHOKING, RED BUMPS, SOB shellfish derived (Verified Allergy, Severe, ALLERGIC TO SEAFOOD, 03/19/19) chicken derived (Verified Allergy, Intermediate, 03/19/19) Uncoded Allergies: SEAFOOD (Allergy, Severe, 11/21/18) RED BUMPS, SOB CHICKEN (Allergy, Intermediate, 11/21/18) VOMITING, DIARRHEA Triage Vital Signs Vital Signs Date Time Temp Pulse Resp B/P (MAP) Pulse Ox O2 Delivery O2 Flow Rate FiO2 02/24/20 13:25 98.9 76 18 147/75 100 Vital signs reviewed: Yes Physical Exam CONSTITUTIONAL Constitutional: Present well-developed, Present well-nourished HENT HENT: Present normocephalic, Present atraumatic, Present oropharynx clear/moist; Absent nose normal (bridge of nose swollen with small abrasion) HENT L/R: Present left ext ear normal, Present right ext ear normal EYES Eyes: Reports PERRL, Reports conjunctivae normal NECK Neck: Present ROM normal PULMONARY Pulmonary: Present effort normal, Present breath sounds normal CARDIOVASCULAR Cardiovascular: Present regular rhythm, Present heart sounds normal, Present capillary refill normal, Present normal rate GASTROINTESTINAL Abdominal: Present soft, Present nontender, Present bowel sounds normal GENITOURINARY Genitourinary: Present exam deferred SKIN Skin: Present warm, Present dry, Present other (senia knees with abrsions) MUSCULOSKELETAL Musculoskeletal: Present ROM normal NEUROLOGICAL Neurological: Present alert, Present oriented x 3, Present no gross motor or sensory deficits PSYCHOLOGICAL Psychological: Present mood/affect normal, Present judgement normal Results Imaging Imaging results reviewed: Yes Assessment & Plan Medical Decision Making MDM xrays Discharged home Reassessment Reassessment time: 14:45 Assessment & Plan Final Impression: (1) Nasal bone fx-closed (2) Abrasions of multiple sites Depart Disposition: HOME, SELF-CARE Last Vital Signs Date Time Temp Pulse Resp B/P (MAP) Pulse Ox O2 Delivery O2 Flow Rate FiO2 02/24/20 13:25 98.9 76 18 147/75 100 Home Meds Reported Medications Metoclopramide Hcl (REGLAN) 10 Mg Tablet, 1 TAB PO BID 12/23/18 Amlodipine Besylate (AMLODIPINE BESYLATE) 5 Mg Tablet, 5 MG PO DAILY PRN for ELEVATED BLOOD PRESSURE, #30 TAB 12/23/18 Pantoprazole Sodium* (PROTONIX) 40 Mg Tablet.dr, 40 MG PO BID, TAB 11/21/18 Hydrocortisone (HYDROCORTISONE) 10 Mg Tablet, 10 MG PO BID, TAB 11/21/18 Mirtazapine (MIRTAZAPINE) 15 Mg Tab, 45 MG PO HS PRN for SLEEP, TAB 11/21/18 Levothyroxine Sodium (LEVOTHYROXINE SODIUM) 50 Mcg Tablet, 100 MCG PO DAILY, #30 TAB 11/21/18 Tramadol Hcl (ULTRAM) 50 Mg Tablet, 50 MG PO PRN, TAB 11/21/18 Medications in the ED Acetaminophen/ Hydrocodone Bitart 1 ea NOW ONCE PO ; Start 02/24/20 at 13:45; Stop 02/24/20 at 13:46; Status UNV HERB LANDIN Feb 24, 2020 13:51
[2020-02-24] MEDS ORDERED: TRAMADOL HCL 50 MG TAB PO ONE (14:00)
--- NOTE | 2020-02-24 14:32 | Diagnostic Imaging Report ---
X-ray nasal bones. History: Fall. Comparison: None Findings: Minimally posteriorly displaced fracture of the right nasal bone tip with overlying soft tissue swelling. Impression: As above. Signed by: Arthur Cho MD on 02/24/2020 2:29 PM
--- NOTE | 2020-02-24 14:34 | Diagnostic Imaging Report ---
X-ray right humerus 2 views Comparison: None History: Fall Findings: No acute fracture, subluxation, significant soft tissue swelling, radiopaque foreign body. Tiny metallic density in the right humeral head could represent a prior orthopedic surgery. Impression: No acute fracture. Signed by: Arthur Cho MD on 02/24/2020 2:30 PM
--- NOTE | 2020-02-24 14:36 | Diagnostic Imaging Report ---
X-ray right forearm History: Fall Comparison: None Findings: Wrist is not fully evaluated on this exam. There is soft tissue swelling on the dorsal aspect of the wrist. There is no acute fracture of the forearm bones. Impression: As above. If there is a concern about injury to the wrist, dedicated wrist x-rays should be obtained. Signed by: Arthur Cho MD on 02/24/2020 2:32 PM
== END 2020-02-24 15:31 | disposition home or self-care (01) ==
LOC: ER 13:32
DX: S02.2XXA Fracture of nasal bones, initial encounter for closed fracture (principal); S80.212A Abrasion, left knee, initial encounter; S80.211A Abrasion, right knee, initial encounter; S40.811A Abrasion of right upper arm, initial encounter; W01.0XXA Fall on same level from slipping, tripping and stumbling without subsequent striking against object, initial encounter; I10 Essential (primary) hypertension; I25.10 Atherosclerotic heart disease of native coronary artery without angina pectoris; E03.9 Hypothyroidism, unspecified; K21.9 Gastro-esophageal reflux disease without esophagitis
CPT/HCPCS: 70160; 99284

== ENCOUNTER → 2020-03-23 | Day surgery (SDC) | payer MEDICARE, OTHER ==
[2020-03-18 13:08] LABS: BASOPHILS % 0.4 % (0.0-1.0); EOSINOPHILS # (AUTO) 0.2 (0.0-0.4); EOSINOPHILS % 2.1 % (0.0-6.0); HEMATOCRIT 41.5 % (34.2-44.1); HEMOGLOBIN 13.3 g/dL (12.0-16.0); LYMPHOCYTES # (AUTO) 3.2 (1.0-3.2); LYMPHOCYTES % 41.9 % (18.0-39.1); MEAN CORPUSCULAR HEMOGLOBIN 30.6 pg (28-32); MEAN CORPUSCULAR VOLUME 95.4 fL (81-99); MONOCYTES # (AUTO) 0.7 (0.2-0.8); MONOCYTES % 9.7 % (4.4-11.3); NEUTROPHILS # (AUTO) 3.5 (2.1-6.9); NEUTROPHILS % 45.5 % (38.7-80.0); PLATELET COUNT 256 x10e3/uL (140-360); RED BLOOD COUNT 4.35 x10e6/uL (3.6-5.1); RED CELL DISTRIBUTION WIDTH 13.2 % (11.7-14.4)
[~2020-03-23] VITALS: Ht 144.8 cm; Wt 68.9 kg
[~2020-03-23] MED LIST changes: +FENTANYL CITRATE/PF 100MCG/2 ML INJ ONE; +MIDAZOLAM HCL 2 MG/2 ML VIAL ONE; +PROPOFOL IV EMULSION 10 MG/ML 20 ML VIAL ONE
[2020-03-23 10:05] VITALS: BP 138/69
== END | disposition home or self-care (01) ==
LOC: OR 07:16
PROVIDERS: ATTEND Internal Medicine Gastroenterology
DX: K92.0 Hematemesis (principal); K29.70 Gastritis, unspecified, without bleeding; K44.9 Diaphragmatic hernia without obstruction or gangrene; K25.9 Gastric ulcer, unspecified as acute or chronic, without hemorrhage or perforation; R89.4 Abnormal immunological findings in specimens from other organs, systems and tissues; R93.89 Abnormal findings on diagnostic imaging of other specified body structures; E03.9 Hypothyroidism, unspecified; I10 Essential (primary) hypertension; E73.9 Lactose intolerance, unspecified; F41.9 Anxiety disorder, unspecified; Z88.6 Allergy status to analgesic agent; Z88.8 Allergy status to other drugs, medicaments and biological substances; Z01.810 Encounter for preprocedural cardiovascular examination; Z01.812 Encounter for preprocedural laboratory examination; Z11.59 Encounter for screening for other viral diseases
CPT/HCPCS: 36415; 43239; 85025; 93005; J2250; J2704; J3010; U0002

== ENCOUNTER 2024-03-25 13:16 | Outpatient (RCR) | payer MEDICARE ==
[~2024-03-25 13:16] MED LIST changes: -FENTANYL CITRATE/PF 100MCG/2 ML INJ ONE; -MIDAZOLAM HCL 2 MG/2 ML VIAL ONE; -PROPOFOL IV EMULSION 10 MG/ML 20 ML VIAL ONE
== END 2024-04-05 ==
LOC: RESP 13:16
DX: Z01.818 Encounter for other preprocedural examination (principal); J84.9 Interstitial pulmonary disease, unspecified; J84.89 Other specified interstitial pulmonary diseases; I10 Essential (primary) hypertension; E11.9 Type 2 diabetes mellitus without complications; R10.13 Epigastric pain; E27.1 Primary adrenocortical insufficiency; E66.09 Other obesity due to excess calories
CPT/HCPCS: 94799